=== PATIENT | female | born 1955 | race Caucasian/White ===

== ENCOUNTER 2019-10-31 17:04 | Emergency (ER) | payer MEDICARE, SELFPAY ==
[2019-10-31] VITALS (17 sets, daily range): BP systolic 102–128; BP diastolic 72–87; PULSE 107–112; RESP 18–23; TEMP 36.8; O2SAT 91–99
--- NOTE | ~2019-10-31 | CT_ITS ---
EXAMINATION: CT brain wo con EXAM DATE: 10/31/2019 17:36 INDICATION: Fall, confusion. TECHNIQUE: Spiral CT of the head was performed without contrast. Axial, coronal and sagittal images were reviewed. The dose-length product (DLP) for this examination was 605.33 mGy-cm. The exposure w as tailored according to patient size, and iterative reconstruction (ASIR) was used as additional dos e reduction technique. There is no prior study for comparison. FINDINGS: There is no acute intraparenchymal hemorrhage. No evidence of intraparenchymal brain mass lesion. No evidence of acute infarction. Please note that initial head CT has limited sensitivity f or small or acute infarctions. There is moderate periventricular and subcortical hypodensity, nonspec ific but probably related to small vessel ischemic disease. There is mild prominence of the sulci a nd ventricles related to cerebral atrophy. There is intracranial carotid arteriosclerosis. There a re no extra-axial collections. There is no mass effect or midline shift. The orbits are unremarkabl e. Soft tissue is unremarkable. The visualized sinuses and mastoid air cells are well aerated. IMPRESSION: 1. No acute intracranial findings. 2. Chronic age related findings. Reviewed, dictated and finalized at location A. [employer]OP FARMER
--- NOTE | 2019-10-31 17:13 | ECG_ITS ---
SINUS TACHYCARDIA BORDERLINE T WAVE ABNORMALITY- LATERAL LEADS BASELINE WANDER- I, II, AVR, V1, V5-V6 ABNORMAL ECG Electronically Signed On 11-01-2019 7:07:29 OVEN BAKER by Jules MCCAULEY
--- NOTE | 2019-10-31 17:19 | ED.FALL ---
HPI - Fall General Chief Complaint: Unspecified Stated Complaint: fall/back pain Time Seen by Provider: 10/31/19 17:13 Source: EMS and RN notes reviewed Mode of arrival: EMS Limitations: intoxication (and uncooperative) History of Present Illness HPI Narrative: Pt is a 63 y/o female who presents to the ED with c/o a fall with an unknown onset. EMS was in the room and provided the information. Pt was found outside of her home after she fell. Pt lives in an apartment complex. Pt landed on her back on a rock. Pt does have chronic lower back pain. Pt drank 2 glasses of wine. Bystanders called EMS and the pt wanted to be evaluated in the ED. Pt was able to ambulate after the fall. EMS notes that the pt slept the entire ambulance ride to the ED. HPI is limited due to pt being intoxicated and uncooperative. MD complaint: fall Fall from: other (unknown) Fall witnessed: no Place fall occurred: other (outside of home) Loss of consciousness: unsure Prolonged down time: unclear Symptoms prior to fall: other (unsure) Context: alcohol use Location of injury: back Associated symptoms (after fall): other (limited due to pt being intoxicated and uncooperative) Related Data Allergies Allergy/AdvReac Type Severity Reaction Status Date / Time Sulfa (Sulfonamide Allergy Unknown Verified 05/26/17 08:47 Antibiotics) Review of Systems Review of Systems: ROS unobtainable: other (limited due to pt being intoxicated and uncooperative) Musculoskeletal: Musculoskeletal: Reports back pain (chronic) [facility] Past Medical History Medical History (Updated 10/31/19 @ 17:41 by Eleln Arthur) Anxiety Anxiety Back pain with history of spinal surgery Bilateral carpal tunnel syndrome Chronic back pain Colon cancer Depression Depression Frequent falls GERD (gastroesophageal reflux disease) GERD (gastroesophageal reflux disease) GI bleed Hepatitis C Hepatitis C History of colon cancer History of GI bleed Hx of fracture of wrist [place] Hx of seizure disorder Hx: UTI (urinary tract infection) IBS (irritable bowel syndrome) IBS (irritable bowel syndrome) Peripheral neuropathy Peripheral neuropathy Port-A-Cath in place Seizures UTI (urinary tract infection) Wrist fracture, bilateral Surgical History Surgical History (Updated 10/31/19 @ 17:41 by Ellen Arthur) History of bilateral carpal tunnel release History of bone graft from LLE History of classical section History of colon resection sigmoid History of cystoscopy with stents Hx of bone graft on left leg Hx of section Hx of cystoscopy with stents S/P colon resection Family History Family History (Updated 04/17/17 @ 13:24 by DOCTOR UNKNOWN) Mother Diabetes mellitus Hypertension Social History Social History (Updated 10/25/19 @ 14:42 by Lewis Bright) Smoking packs per day: 1 Smoking cigarettes per day: 20.0 Smoking status: Current every day smoker Second hand tobacco smoke exposure: Yes Alcohol intake: current Living arrangements: other Additional living arrangements comments: Pt lives in an apartment complex. Gender identity (if verbalized by the patient): Female Comments Pt has a hx of metal neck implanted to her pelvis. Exam Narrative: Exam Narrative: Exam is limited due to pt being intoxicated and uncooperative. Const: General: comfortable, no acute distress, well developed and other (lethargic) Limitations: other limitations (intoxicated, uncooperative) HENMT: Head: normal to inspection, normocephalic and atraumatic Ears: hearing grossly normal bilaterally, TM normal on the right and TM normal on the left General nose exam: external nose normal, nares normal and no nasal discharge Face and sinus: normal facial exam Mouth: Yes oral mucosae normal, Yes lip normal, Yes tongue normal and Yes oropharynx normal Throat: posterior oropharynx normal, tonsils normal and uvula midline Eyes: General: appearance no
[2019-10-31] MEDS: SODIUM CHLORIDE 0.9% IV 1,000 ML 999 ML IV CONT (17:41)
[2019-10-31 17:57] LABS: Basophils Absolute Auto 0.1 K/mm3 (0.0-0.1); Basophils Percent Auto 0.8 % (0.2-1.2); Eosinophils Absolute Auto 0.1 K/mm3 (0-0.3); Eosinophils Percent Auto 1.2 % (0-4.4); Hematocrit 42.4 % (37.0-47.0); Hemoglobin 13.5 g/dL (12.0-15.0); Immature Granulocyte Absolute 0.11 K/mm3 (0.00-0.031); Lymphocytes Absolute Auto 4.77 K/mm3 (0.9-3.2); Lymphocytes Percent Auto 44.1 % (18.3-44.2); Mean Corpuscular HGB Conc 31.8 g/dl (32-36); Mean Corpuscular Hemoglobin 31.1 pg (26-34); Mean Corpuscular Volume 97.7 fl (80-100); Mean Platelet Volume 9.2 fl (7.4-10.4); Monocytes Absolute Auto 0.7 K/mm3 (0.1-0.6); Monocytes Percent Auto 6.5 % (2.6-8.5); Neutrophils Percent Auto 46.4 % (45.5-73.1); Platelet Count Result 304 k/mm3 (150-375); Red Blood Count 4.34 M/mm3 (4.2-5.4); Red Cell Distribution Width 14.2 % (11.5-14.5); White Blood Count 10.8 K/mm3 (4.5-10.0)
[2019-10-31 18:10] LABS: Blood Urea Nitrogen 12 mg/dL (7-17); Calcium 9.2 mg/dL (8.4-10.2); Carbon Dioxide 19 mmol/L (22-30); Chloride 106 mmol/L (98-107); Estimated CRCL calculation 96 ml/min; Estimated Glomerular Filt Rate > 60; Glucose 117 mg/dL (65-105); Potassium 4.1 mmol/L (3.4-5.0); Sodium 141 mmol/L (137-145)
[2019-10-31 18:29] LABS: Ethanol 326 mg/dL (<10)
[2019-11-01 00:21] VITALS: PULSE 104; RESP 18; O2SAT 95
[2019-11-01 01:05] VITALS: BP 119/77; PULSE 82; RESP 18; O2SAT 99
== END 2019-11-01 01:06 | disposition home or self-care (01) ==
PROVIDERS: Emergency Provider Emergency Medicine
DX: F10.129 Alcohol abuse with intoxication, unspecified (principal); Y90.8 Blood alcohol level of 240 mg/100 ml or more; W19.XXXA Unspecified fall, initial encounter; Z85.038 Personal history of other malignant neoplasm of large intestine; K21.9 Gastro-esophageal reflux disease without esophagitis; Z86.19 Personal history of other infectious and parasitic diseases; G40.909 Epilepsy, unspecified, not intractable, without status epilepticus; K58.9 Irritable bowel syndrome, unspecified; Z87.440 Personal history of urinary (tract) infections; Z90.49 Acquired absence of other specified parts of digestive tract; F17.210 Nicotine dependence, cigarettes, uncomplicated
CPT/HCPCS: 36415; 70450; 80048; 80307; 85025; 93005; 96361; 96365; 96366; 99284; J3411; J3475; J7030; J7121

== ENCOUNTER 2019-12-20 09:52 | Observation (INO) | payer MEDICARE, MEDICAID, SELFPAY ==
[2019-12-20] VITALS (10 sets, daily range): BP systolic 111–147; BP diastolic 56–93; PULSE 101–127; RESP 16–20; TEMP 36.9–37.2; O2SAT 94–96; BMI 34.8
--- NOTE | ~2019-12-20 | CT_ITS ---
EXAMINATION: CT brain wo con, CT cervical spine wo con EXAM DATE: 12/20/2019 10:47 INDICATION: Seizure, posterior head injury, laceration. TECHNIQUE: Spiral CT of the head was performed without contrast. Axial, coronal and sagittal images were reviewed. Spiral CT of the cervical spine was performed without contrast. Axial images were rev iewed. Coronal and sagittal reformatted images were also reviewed. The dose-length product (DLP) fo r this examination was 605.33 (accession [id number]), 426.79 (accession [id number]) mGy-cm. The exposure was tailored according to patient size, and iterative reconstruction (ASIR) was used as additional dose reduction technique. There is no prior study for comparison. FINDINGS: HEAD CT: There is no acute intraparenchymal hemorrhage. No evidence of intraparenchymal brain mass l esion. No evidence of acute infarction. There is moderate periventricular and subcortical hypodensit y, nonspecific but probably related to small vessel ischemic disease. There is mild prominence of t he sulci and ventricles related to cerebral atrophy. There is intracranial carotid arteriosclerosis . There is no mass effect or midline shift. There is no obstructive hydrocephalus suspected. There are no extra-axial collections. There are no acute calvarial fractures. The orbits are unremarkabl e. Right occipital scalp laceration, contusion. The visualized sinuses and mastoid air cells are we ll aerated. CERVICAL CT: Cervical fusion hardware with anterior plate C5-7. There is no evidence of acute cervica l fracture. The odontoid process is intact. Pre-dens space is normal. Prevertebral soft tissue is normal. There are no soft tissue abnormalities identified. There is no disc space widening or traum atic vertebral body subluxation suspected. Advanced upper cervical facet arthropathy. A detailed le evelyn by level evaluation of spondylosis can be added as addendum if requested. IMPRESSION: 1. No acute intracranial or cervical findings. 2. Right occipital scalp contusion/laceration. 3. Intact cervical fusion. Reviewed, dictated and finalized at location B. FACTURING ENGINEER CHIEF IMPRESSION: 1. No acute intracranial or cervical findings. 2. Right occipital scalp contusion/laceration. 3. Intact cervical fusion.
--- NOTE | ~2019-12-20 | MR_ITS ---
EXAMINATION: MR brain/brain stem wo/w con DATE: 12/21/2019 10:45 INDICATION: Seizure. TECHNIQUE: Magnetic resonance imaging (MRI) of the brain and brainstem was performed without and with 15 mL MultiHance intravenous contrast. Sequences included sagittal and axial T1-weighted FSE, axial diffusion-weighted FS EPI, axial T2*-weighted GRE, axial T2-weighted FLAIR Propeller, and axial T2-we ighted Propeller. Postcontrast sequences included axial and coronal T1-weighted FSE. Apparent diffusi on coefficient (ADC) maps were created. COMPARISON: Brain MRI 12/23/2016, head CT 12/20/2019 FINDINGS: There are scattered areas of nonspecific increased T2-weighted signal intensity in the cere bral white matter. There is no intracranial hemorrhage, acute infarction, or abnormal intracranial ma ss lesion. The ventricles are normal in size. There is a 2.4 x 1.1 cm arachnoid cyst anterior to left temporal lobe. There is mild mucosal thickening in the paranasal sinuses. The orbits are normal. The mastoid air cells are normal. IMPRESSION: 1. Worsened moderate nonspecific cerebral white matter disease, which likely represents chronic small vessel ischemic disease. Reviewed, dictated and finalized at location A. MATIC BLOCKER IMPRESSION: 1. Worsened moderate nonspecific cerebral white matter disease, which likely re presents chronic small vessel ischemic disease.
--- NOTE | 2019-12-20 10:01 | ECG_ITS ---
Measurements Intervals [place] Rate: 113 P: 59 GA: 135 QRS: 68 QRSD: 73 T: 73 QT: 320 QTc: 439 Interpretive Statements SINUS TACHYCARDIA POSSIBLE LEFT ATRIAL ENLARGEMENT CANNOT RULE OUT SEPTAL INFARCT, AGE INDETERMINATE BASELINE ARTIFACT- I, II, III, AVR, AVL, AVF ABNORMAL ECG Electronically Signed On 12-20-2019 10:03:08 AIRCRAFT DESIGN ENGINEER by Jules Workman D.O.
--- NOTE | 2019-12-20 10:17 | ED.SEIZURE ---
HPI - Seizure General Chief Complaint: Seizure <Berenice Samaniego MD - Last Filed: 12/20/19 19:44> Stated Complaint: SEIZURE <Berenice Samaniego MD - Last Filed: 12/20/19 19:44> Time Seen by Provider: 12/20/19 10:02 <Berenice Samaniego MD - Last Filed: 12/20/19 19:44> Source: patient and RN notes reviewed <Berenice Samaniego MD - Last Filed: 12/20/19 19:44> Mode of arrival: EMS <Berenice Samaniego MD - Last Filed: 12/20/19 19:44> Limitations: no limitations <Berenice Samaniego MD - Last Filed: 12/20/19 19:44> History of Present Illness HPI Narrative: Pt is a 64 y/o female presenting to the ED via EMS c/o Sz. Pt reports she was standing in line at [facility] when she felt her baseline aura of feeling lightheaded and passed out on the ground, noting she woke up in the EMS vehicle earlier today. Pt states she has been experiencing Sz's about once a month for the past 2 years, and is currently prescribed 2000 mg Keppra BID in which she maintains compliance of. Pt states her Sz's are managed by her PCP, Dr. Ibarra, and states she has never been to see a Neurologist, but notes she thinks she is scheduled to see a Neurologist next week. Pt states she hit the back of her head during the Sz earlier today causing a laceration to her occipital head. Pt denies neck pain, N/V, diarrhea, fever, or a recent illness. Pt notes her last Tetanus shot is unknown. Pt states she consumed about 3-4 glasses of wine last night, but denies heavy alcohol use regularly. Pt states she smokes 1 ppd, but denies drug use. <Berenice Samaniego MD - Last Filed: 12/20/19 19:44> Onset (ago): unknown (Earlier today) <Berenice Samaniego MD - Last Filed: 12/20/19 19:44> Seizure History: Yes <Berenice Samaniego MD - Last Filed: 12/20/19 19:44> Associated symptoms: other (Lightheadedness; laceration to occipital head) <Berenice Samaniego MD - Last Filed: 12/20/19 19:44> Related Data Home Medications: Home Medications Medication Instructions Recorded Confirmed levetiracetam 1,000 mg tablet 2,000 mg PO Q12H 11/18/19 12/20/19 mrixaiewle-lvgeynzmbqogi-lgzd 2 tablet PO PRN PRN 12/20/19 12/20/19 ibuprofen 400 mg PO TID PRN 12/20/19 12/20/19 <Berenice Samaniego MD - Last Filed: 12/20/19 19:44> Allergies/Adverse Reactions: Allergies Allergy/AdvReac Type Severity Reaction Status Date / Time Sulfa (Sulfonamide Allergy Unknown Unknown Verified 12/20/19 15:08 Antibiotics) <Berenice Samaniego MD - Last Filed: 12/20/19 19:44> Review of Systems Review of Systems: All systems reviewed & are unremarkable except as noted in HPI and below <Berenice Samaniego MD - Last Filed: 12/20/19 19:44> Constitutional: Constitutional: Denies fever(s) <Berenice Samaniego MD - Last Filed: 12/20/19 19:44> Cardiovascular: Cardiovascular: Reports lightheadedness <Berenice Samaniego MD - Last Filed: 12/20/19 19:44> Gastrointestinal: Gastrointestinal: Denies diarrhea, Denies nausea and Denies vomiting <Berenice Samaniego MD - Last Filed: 12/20/19 19:44> Musculoskeletal: Musculoskeletal: Denies neck pain <Berenice Samaniego MD - Last Filed: 12/20/19 19:44> Integumentary/Breasts: Skin/Breast: Reports other (Laceration to occipital head) <Berenice Samaniego MD - Last Filed: 12/20/19 19:44> Neurologic: Reports seizure-like activity <Berenice Samaniego MD - Last Filed: 12/20/19 19:44> [facility] Past Medical History Medical History: Medical History Anxiety Anxiety Back pain with history of spinal surgery Bilateral carpal tunnel syndrome Chronic back pain Colon cancer Depression Depression Frequent falls GERD (gastroesophageal reflux disease) GERD (gastroesophageal reflux disease) GI bleed Hepatitis C Hepatitis C History of colon cancer History of GI bleed Hx of fracture of wrist [place] Hx of seizure disorder Hx: UTI (urinary tract infection) IBS (irritable bowel syndrome)
[2019-12-20 10:26] LABS: Basophils Absolute Auto 0.1 K/mm3 (0.0-0.1); Basophils Percent Auto 0.6 % (0.2-1.2); Eosinophils Absolute Auto 0.1 K/mm3 (0-0.3); Eosinophils Percent Auto 0.7 % (0-4.4); Hematocrit 45.6 % (37.0-47.0); Hemoglobin 14.4 g/dL (12.0-15.0); Immature Granulocyte Absolute 0.07 K/mm3 (0.00-0.031); Immature Granulocyte Percent A 0.6 % (0-0.5); Lymphocytes Absolute Auto 3.04 K/mm3 (0.9-3.2); Lymphocytes Percent Auto 26.1 % (18.3-44.2); Mean Corpuscular HGB Conc 31.6 g/dl (32-36); Mean Platelet Volume 9.4 fl (7.4-10.4); Monocytes Absolute Auto 0.5 K/mm3 (0.1-0.6); Monocytes Percent Auto 3.9 % (2.6-8.5); Neutrophils Percent Auto 68.1 % (45.5-73.1); Platelet Count Result 363 k/mm3 (150-375); Red Cell Distribution Width 13.6 % (11.5-14.5); White Blood Count 11.7 K/mm3 (4.5-10.0)
[2019-12-20 10:37] LABS: Blood Urea Nitrogen 5 mg/dL (7-17); Calcium 9.2 mg/dL (8.4-10.2); Carbon Dioxide 18 mmol/L (22-30); Chloride 106 mmol/L (98-107); Estimated CRCL calculation 83 ml/min; Estimated Glomerular Filt Rate > 60; Glucose 103 mg/dL (65-105); Potassium 4.4 mmol/L (3.4-5.0); Sodium 140 mmol/L (137-145)
[2019-12-20] MEDS: LACTATED RINGERS 1,000 ML 999 ML IV CONT (11:00)
[2019-12-20] MEDS: TETANUS,DIPHTHERIA,AC PERTUSSIS ADULT 0.5 ML (ADACEL) IM (11:03)
[2019-12-20 11:30] LABS: Amphetamine Screen Urine Negative (Negative); Barbiturate Screen Urine Positive (Negative); Benzodiazepines Screen Urine Negative (Negative); Cannabinoid Screen Urine Negative (Negative); Cocaine Screen Urine Negative (Negative); Methadone Screen Urine Negative (Negative); Opiate Screen Urine Negative (Negative); Phencyclidine Screen Urine Negative (Negative)
[2019-12-20 12:12] LABS: Add Urine Microscopic? YES; Appearance Urine Clear (Clear); Bacteria Urine Trace /hpf; Bilirubin Urine Negative (Negative); Blood Urine Negative (Negative); Color Urine Yellow (Yellow); Glucose Urine UA Negative (Negative); Ketones Urine Negative (Negative); Leukocyte Esterase Ur Trace LEU/UL (Negative); Mucus Urine Rare /lpf; Nitrate Urine Negative (Negative); Protein Urine Negative (Negative); Specific Grav Ur 1.018 (1.001-1.035); Squamous Epithelial Cell Urine Moderate /hpf (Few); Urobilinogen Urine Negative mg/dL (<2.0)
[2019-12-20] MEDS: LORAZEPAM INJ 2 MG/ML VIAL 1 MG IV PUSH (12:20)
[2019-12-20] MEDS: levETIRAcetam 1000MG/NACL100ML 1,000 MG/100 ML BAG 400 MG IVPB (14:00)
--- NOTE | 2019-12-20 15:17 | ADMGEN ---
This patient, Carolyn Royal, was admitted to Medical Room 245-. Patient/family oriented to hospital policies and general routines including ID bracelet, bed and alarms, visiting hours, pain management, procedures, bathroom and other care routines, personal items, smoking policy, room service/diet, and visiting hours. Valuables list has been completed. Information on how to activate the Rapid Response Team has been discussed. Patient/Family are encouraged to report perceived risks to care and to ask questions if they do not understand what they are told or what they should do.
[2019-12-20] MEDS: LACTATED RINGERS 1,000 ML 125 ML IV CONT (17:53)
[2019-12-20] MEDS: levETIRAcetam 500 MG TABLET 1000 MG PO (21:42)
[2019-12-21 00:35] VITALS: PULSE 93
[2019-12-21] MEDS: LACTATED RINGERS 1,000 ML 125 ML IV CONT (02:03)
[2019-12-21 04:00] VITALS: PULSE 82
--- NOTE | 2019-12-21 04:23 | PM.IMHP ---
H&P: HPI History of Present Illness Chief complaint: Seizure Narrative: Date and time of patient contact: 12/21/2019 at 5:30 a.m. Carolyn Royal is a 64 year old female with a past medical history of a known seizure disorder has been evaluated here multiple times for seizures who presented to the ER via EMS from [facility] due to seizure. The patient has been on Keppra for several years. I find a record of seizure disorder since 2017. Patient had negative EEG in 2017 an MRI that demonstrated an anterior left arachnoid cyst and microvascular changes. However the patient had reported that she cannot see neurology for her seizures and that her seizures are managed by her primary care physician. However the patient has been evaluated by Neurology multiple times here and has had prior EEGs and MRIs at this facility. Initial triage report was that the patient drinks 3 or 4 glasses a wine a day. However the patient later stated that she only drinks on occasion and she last drank 3-4 glasses on the . Interestingly enough the patient was at [facility] buying a bottle of wine when her seizure occurred and had not had any alcohol on the day of the . And alcohol level was not obtained in the ER. However, the patient has had alcohol levels as high as 326 October 31, 2019 and 385 on October 22, 2019. During my interview the patient became quite defensive been angry when I was asking her about alcohol use. She states that there are times where she will go weeks without drinking alcohol. But there are other times where she will drink a couple of bottles of wine a week. Of note the patient did not have any loss of bowel or bladder control at the time of her seizure. She states that her oral for seizure is that she just generally feels lightheaded. She states she has had a few episodes of what she thought were her auras over the last week but she did not have any events. The patient had seizure-like activity in the ER. She had called out to the nurses station and when staff went to assess the patient she was found to be having generalized body jerking with her eyes open and she was talking. The patient proceeded to continue talking and answered questions immediately. She was given Ativan. Had a laceration repair performed in the ER the documentation is difficult to read but appears the patient may have received 4 sutures. I visualized the wound and cannot determine the number of sutures. The patient reports the pain in her head is a 7/10 in intensity. She had received Nelson 5 mg every 6 hours that have been ordered in the ER. I increased her Nelson to 7.5 every 6 hours and gave her a dose of early and she still states that her pain is unchanged. I provided the patient with an ice pack and told her that she would not be getting any additional narcotics. She states that she now hurts all over after having fallen. Her general body aches are terrible. Review of Systems Review of Systems: Narrative: Except as documented in the HPI, all other systems were reviewed and are negative. [facility] Past Medical History Medical History (Updated 12/21/19 @ 05:57 by Africa Brannon DO) Anxiety Back pain with history of spinal surgery Miller rods placed due to scoliosis Colon cancer Depression Fracture of right ankle, lateral malleolus Nondisplaced comminuted fracture lateral malleolus 11/13/2019 Frequent falls GERD (gastroesophageal reflux disease) GI bleed With history of gastric and duodenal ulcer 09/2018 Hepatitis C Has a teenage History of colon cancer Status post sigmoid resection 05/05/2017 Hx of seizure disorder With normal EEG and MRI demonstrating arachnoid cyst in the left temporal lobe with chronic small-vessel ischemic changes in November 2016 IBS (irritable bowel syndrome) 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 Surgical History Surgical History (Updated 12/21/19 @ 04:40 by Africa Brannon DO) History o
[2019-12-21] MEDS: NICOTINE (*PBKC) 21 MG PATCH 1 PATCH TRANSDERM (06:15)
[2019-12-21 06:25] VITALS: BP 145/85; PULSE 86; RESP 18; TEMP 36.2; O2SAT 98
[2019-12-21 08:00] VITALS: PULSE 95
[2019-12-21] MEDS: levETIRAcetam 500 MG TABLET 1000 MG PO (08:46)
[2019-12-21 12:00] VITALS: PULSE 92
--- NOTE | 2019-12-21 12:10 | PM.IMPN ---
Progress Note: A&P Assessment and Plan (1) Generalized seizure: Code(s): R56.9 - Unspecified convulsions Status: Acute Assessment and Plan: Seizure activity occurred on 12/20/19. Received 1 g IV Keppra in ED. Dr. Chun is seeing the patient and will give recommendations. Due to scalp laceration, an EEG is not able to be obtained. She is scheduled for outpatient EEG with Dr. Chun. - Continue home dose PO Keppra 1000 mg BID - Continue prn Lorazepam for seizure activity - Await results of MRI - Await recommendations from Dr. Chun. (2) Scalp laceration: Code(s): S01.01XA - Laceration without foreign body of scalp, initial encounter Status: Acute Assessment and Plan: Laceration sustained due to fall from seizure activity. Repair performed in the ED. Documentation reveals 2 laceration sites of the scalp. It appears that a total of 2 nylon sutures were placed which will need to be removed in 7-10 days. There is dried blood on the scalp and patient is very tender to palpation, therefore I was able to visualize only one suture. - Continue to monitor laceration - Suture removal in 7-10 days as an outpatient (3) Back pain with history of spinal surgery: Code(s): M54.9 - Dorsalgia, unspecified Status: Acute Assessment and Plan: Patient complains of diffuse back pain following lying for MRI. She has history of spinal surgery and rods. - Order heating pad for comfort measures Subjective Date/time seen: 12/21/19 12:10 Interval history: Date of service: 12/21/19 Ms. Royal is a 64 year old female with a history of generalized seizures who is hospitalized following seizure activity on 12/20 with which she obtained a scalp laceration requiring suture closure. She reports she is doing well today. She complains of scalp pain at the site of laceration but she denies headache. She denies dizziness or lightheadedness. She had just returned from an MRI which she reports made her feel rather anxious. She also cites family issues that are causing her to feel anxious. Additionally, she complains of diffuse back pain related to her history of scoliosis. She reports sleeping well and has good appetite. She denies urinary symptoms. Review of Systems Review of Systems: Narrative: A 12 point review of systems was reviewed and unremarkable except as noted in HPI and below Constitutional: no weakness, no fatigue, no fevers, no dizziness or lightheadedness EENT: no visual disturbance, no difficulty hearing, no rhinorrhea, no dysphagia CV: no chest pain, no SOB Respiratory: no cough, no congestion GI: no abdominal pain, no nausea or vomiting, no stool changes : no dysuria, no urgency or frequency, no hematuria Skin: no rashes, scalp lesion MSK: back pain Neuro: no headaches, no memory loss, no confusion Psych: anxiety, no depression Heme: no bleeding or bruising Endocrine: no weight change Exam Narrative: Exam Narrative: Ms. Royal is examined alone today. She is lying supine in bed with seizure pads in place and she is eating lunch. Constitutional: NARD, comfortable, well nourished Neuro: awake, alert and oriented x3, speech clear, no focal neuro deficits noted HEENMT: normocephalic, EOMI, sclerae anicteric, scalp very tender to palpation and sutures difficult to visualize due to hair, dried blood, and patients discomfort. One suture visualized in the left occipital region. No active bleeding, no signs of infection. Neck: supple, no lymphadenopathy Respiratory: clear to auscultation bilaterally, normal respiratory effort Cardio: regular rate, regular rhythm, no murmur noted Abdomen: normal to inspection, soft, nontender, no masses, bowel sounds present Back: tenderness to palpation, no CVA tenderness Extremities: no edema, no erythema, no pain to palpation Skin: no rashes or lesions, warm and dry Psych: anxious Objective Data Vital Signs Vital Signs: Vital Signs - 24 h
--- NOTE | 2019-12-21 13:38 | PM.DS ---
DS: Diagnosis Admitting Diagnosis Admitting Diagnosis: Unspecified convulsions Discharge Diagnosis (1) Generalized seizure: Code(s): R56.9 - Unspecified convulsions Status: Acute (2) Scalp laceration: Qualifiers: Encounter type: initial encounter Qualified Code(s): S01.01XA - Laceration without foreign body of scalp, initial encounter Code(s): S01.01XA - Laceration without foreign body of scalp, initial encounter Status: Acute Assessment and Plan: (3) Back pain with history of spinal surgery: Code(s): M54.9 - Dorsalgia, unspecified Status: Acute Assessment and Plan: (4) Anxiety: Code(s): F41.9 - Anxiety disorder, unspecified Status: Acute DS: Summary Hospital Course Reason for hospitalization: Seizure activity Hospital Course: Date of admission: 12/20/19 Date of discharge: 12/21/19 Ms. Royal is a 64 year old female with history of generalized seizures who presented to the emergency department via EMS on 12/20/19 after having seizure activity at [facility] with which she sustained a scalp laceration. She reports she has seizures approximately every month but denies seeing a neurologist. She was admitted on 12/20/[address] Chun with neurology was consulted and followed the patient closely. A head CT obtained revealed no acute intracranial findings and right occipital scalp contusion/laceration. Her seizures were controlled with 1 g IV Keppra while in the ED. She was then continued on her home dose of Keppra 1000 mg BID. She did not have additional seizure activity while hospitalized. Her MRI did not reveal acute changes. She was unable to undergo EEG due to her scalp laceration. Dr. Chun recommended she complete EEG as an outpatient in 6 weeks. She was given instructions to call his office to set up this appointment. Per Dr. Chun's recommendations, her home dose of Keppra was increased to 1000 mg every morning and 1500 mg every evening. We discussed importance of medication compliance. Her scalp laceration was repaired in the ED. Documentation revealed 2 lacerations on the scalp that were approximated with nylon sutures. It appears there were a total of 2 sutures placed. The patient was extremely tender to palpation and there was dried blood on the scalp which made suture visualization difficult. I was able to visualize one suture in the left occipital region. There was no active bleeding from the laceration and it appeared clean and dry. She was instructed to follow up with her PCP regarding suture removal in 7-10 days and avoid submerging the area in water. She did endorse back pain during her stay. She has a history of scoliosis corrected with surgery. She reports the rods in her back cause her pain, and the combination of the seizure activity and lying for the MRI had exacerbated her back pain. She did receive [place] for pain on 12/20/19. On 12/21/19, she was given a heating pad to apply to her back for comfort measures. She also endorsed anxiety that was multifactorial. She reported the event had made her anxious and she had some personal family stressors. She was very concerned about going home to care for herself which caused her to become quite anxious. She reported this anxiety was causing her to feel as though she was short of breath, although she was breathing without difficulty. She was discharged with a 2 day course of hydroxyzine to take for her anxiety as needed with instructions to follow up with her PCP if her anxiety continued or worsened. After discussing worrisome signs and symptoms for which to seek medical care, the patient was discharged home on the afternoon of 12/21/19 in hemodynamically stable condition with instructions to follow up with her PCP and neurologist. Status at Discharge Functional status at discharge: independent ambulation Overall status at discharge: patient is progressing back to baseline Time Spent with Patient Time
--- NOTE | 2019-12-21 14:04 | PC.NURSE ---
On 12/21/19, the student, Eduardo Briggs, provided care and completed [facility] documentation on this patient. I have reviewed the student's documentation and agree with the findings.
--- NOTE | 2019-12-21 14:45 | PC.NURSE ---
12/21/19 1400. Patient actually takes 1000 mg Keppra PO Q12hr. Medication rec was incorrect. Lizbeth GUEVARA is aware. Dr. Chun is aware. Patient is also aware of change in medication.
--- NOTE | 2019-12-21 15:24 | CONS_ITS ---
DATE OF CONSULTATION: HISTORY OF PRESENT ILLNESS: This 64-year-old right-handed female has been admitted to [facility] through the emergency room via EMS from [facility] due to the seizure. The patient has been on Keppra for several years since 2017 in the record here. Last time she had an EEG in 2017 including the MRI, which revealed the anterior left arachnoid cyst and microvascular changes. Her seizures are managed by her primary care physician. She has been evaluated by Neurology multiple times here and has had previous EEGs and MRIs also. It was also reported that she drinks only occasionally and last drink was about 3-4 glasses on . Reportedly she was at [facility] buying a bottle of wine when her seizure occurred and had not had any alcohol on the day of the . An alcohol level was not obtained in the emergency room, but patient has had alcohol level as high as 326 on October 31, 2019 and 385 from 10/22/2019. She will drink a couple of bottles of wine a week. She has not had incontinence of bowel or bladder. In the emergency room, she was noted to have seizure-like activity, when she received the Ativan. She had a laceration, which was repaired in the emergency room. The pain in her head was 7/10 in intensity. She had received [place] 5 mg every 6 hours, which was ordered in the emergency room, which was subsequently increased in the strength. PAST MEDICAL HISTORY: As per the review of the medical record, patient carries the history of anxiety, back pain with history of spinal surgery, Miller rods placed due to scoliosis, colonic cancer, depression, fracture of the right ankle lateral malleolus, nondisplaced, repair on 11/13/2019, frequent falls, GERD, GI bleed, hepatitis C as a teenager, history of colon cancer for which she underwent sigmoid resection, history of seizure disorder, irritable bowel syndrome, and peripheral neuropathy. PAST SURGICAL HISTORY: She has undergone bilateral carpal tunnel release, bone graft for the left lower extremity, colon resection, cystoscopic exam, , Port-A-Cath in place, scoliosis deformity with spine with surgical repair, wrist fracture bilateral requiring bone graft. FAMILY HISTORY: Mother is diabetic, hypertensive, has COPD. Father is with motor vehicle accident, history of alcohol abuse. Siblings have history of drug overdose with disease. SOCIAL HISTORY: The patient herself smoked 1 pack per day with 46 years of smoking pack years and current every day smoker. Current alcohol drinker. MEDICATIONS: Evaluation up until now revealed her to have Keppra 2000 mg q.12 hours at home, phenobarbital 2 tablets p.o. p.r.n. for the headache, and ibuprofen p.r.n. PHYSICAL EXAMINATION: VITAL SIGNS: Evaluation up until now revealed her to be afebrile with pulse of 119, respirations 20, blood pressure 114/84, temperature normal. GENERAL: Examination revealed her to be awake, alert, cooperative. HEENT: Head normocephalic, but complaining of tenderness. x ray electronics wiring technician was struggling to do the EEG, but electrodes could not be placed in, it was discontinued, advised to have the EEG done in 6 weeks. Ears, nose, throat examination normal. NECK: Supple with no cervical bruit. No thyromegaly. No lymphadenopathy. HEART: Regular. LUNGS: Clear. ABDOMEN: Soft. NEUROLOGICAL: She is awake, alert, oriented x3. Speech not dysphasic, not dysarthric, not dysphonic. Pupils round, regular. [place] of vision full. Extraocular movements full. Face symmetrical. Tongue midline. Motor examination revealed normal strength. Reflexes symmetrical. Plantars downgoing. No evidence of gross cerebellar deficit. LABORATORY DATA: Evaluation up until now includes the CBC with normal WBC 11.7, hemoglobin 14.4, and platelet count 363. Ba
== END 2019-12-21 14:20 | disposition home or self-care (01) ==
LOC: ANHED 13:35 → ANH2MED 13:53
PROVIDERS: Emergency Medicine; Admitting Provider Internal Medicine; Emergency Provider General Practice; PCP Family Medicine; Visit Provider Internal Medicine
DX: R56.9 Unspecified convulsions (principal); S01.01XA Laceration without foreign body of scalp, initial encounter; M54.9 Dorsalgia, unspecified; F41.9 Anxiety disorder, unspecified; F17.210 Nicotine dependence, cigarettes, uncomplicated; G62.0 Drug-induced polyneuropathy; T45.1X5S Adverse effect of antineoplastic and immunosuppressive drugs, sequela; Z23 Encounter for immunization; Z79.899 Other long term (current) drug therapy; Z85.038 Personal history of other malignant neoplasm of large intestine; Z86.19 Personal history of other infectious and parasitic diseases; Z88.2 Allergy status to sulfonamides; Z98.1 Arthrodesis status
CPT/HCPCS: 12001; 36415; 70450; 70553; 72125; 80048; 80307; 81001; 85025; 90471; 90715; 93005; 96361; 96365; 96375; 99285; A9270; A9577; G0378; J1953; J2060; J7120

== ENCOUNTER 2020-02-10 15:27 | Emergency (ER) | payer MEDICARE, MEDICAID, SELFPAY ==
--- NOTE | ~2020-02-10 | CT_ITS ---
EXAMINATION: CT brain wo con DATE: 02/10/2020 17:12 INDICATION: Status post fall. Seizure. Head injury. TECHNIQUE: Computed tomography (CT) of the head was performed without intravenous contrast. The dose- length product was 605.33 mGy-cm. The mA was adjusted according to patient size. Iterative reconstruc tion technique was employed. COMPARISON: CT dated 12/20/2019 FINDINGS: No acute intracranial hemorrhage, infarction, mass or mass effect. No ventriculomegaly or m idline shift. Basilar cisterns are patent. Paranasal sinuses and mastoids are pneumatized. No depress ed skull fractures. There are scattered moderate periventricular and subcortical white matter changes , most likely related to small vessel ischemic disease (microangiopathy). IMPRESSION: 1. No acute intracranial abnormality. 2: Chronic age-related findings. Reviewed, dictated and finalized at location A.
[2020-02-10 15:24] VITALS: BP 105/64; PULSE 113; RESP 20; TEMP 36.6; O2SAT 96
--- NOTE | 2020-02-10 15:32 | ECG_ITS ---
Measurements Intervals [place] Rate: 105 P: 75 AL: 131 QRS: 83 QRSD: 82 T: 85 QT: 336 QTc: 446 Interpretive Statements SINUS TACHYCARDIA ATRIAL PREMATURE COMPLEX POSSIBLE LEFT ATRIAL ENLARGEMENT BORDERLINE T WAVE ABNORMALITY- LATERAL LEADS BASELINE ARTIFACT- I, II, III, AVR, AVL, AVF ABNORMAL ECG Electronically Signed On 02-10-2020 16:26:43 CDT by Jules Workman D.O.
[2020-02-10 16:36] VITALS: BP 127/88; PULSE 100; RESP 17; O2SAT 95
--- NOTE | 2020-02-10 16:37 | ED.SEIZURE ---
HPI - Seizure General Chief Complaint: Seizure Stated Complaint: SEIZURE Time Seen by Provider: 02/10/20 16:09 Source: patient Mode of arrival: EMS Limitations: no limitations History of Present Illness HPI Narrative: Patient is a 64-year-old female who presents to the emergency department with complaint of seizure. Patient has known history of seizure disorder and takes Keppra twice daily. Patient does not know the strength on her Keppra but states she takes 3 tablets in the morning and 2 tablets in the evening. Patient states she had a seizure witnessed by her mother approximately 2 weeks ago. She reports feeling as though seizure was coming on last night and then waking up in her bed having not fallen but feeling achy all over. Patient states she had another episode today while sitting on the couch. Patient felt in her head as though a seizure was coming on and when she woke up she was on the floor aching all over. Patient complains of a headache and states she could tell she had hit the end table as there was a crack in it. Patient is uncertain what part of her body hit the table. Patient states she has been compliant with her seizure medication. She states her primary care physician has her set up to have an EEG and some other evaluation of her seizures. Patient states she does not currently have a neurologist. Patient denies any recent illness symptoms. complaint: seizure Onset (ago): hour(s) Witnessed: No Seizure History: Yes (since 2007) Place: home Possible Precipitating Event: none Associated symptoms: other (Headache, back pain, diffuse muscle aches) Treatments prior to arrival: none Related Data Home Medications Medication Instructions Recorded Confirmed hzuwdloiau-mtvbsbmwlgfoc-vaek 2 tablet PO PRN PRN 12/20/19 12/20/19 ibuprofen 400 mg PO TID PRN 12/20/19 12/20/19 Allergies Allergy/AdvReac Type Severity Reaction Status Date / Time Sulfa (Sulfonamide Allergy Unknown Unknown Verified 02/10/20 16:12 Antibiotics) Review of Systems Review of Systems: All systems reviewed & are unremarkable except as noted in HPI and below Constitutional: Constitutional: Denies fever(s) Respiratory: Respiratory: Denies cough and Denies dyspnea Gastrointestinal: Gastrointestinal: Denies diarrhea, Denies nausea and Denies vomiting PMFSH Past Medical History Medical History Anxiety Back pain with history of spinal surgery Miller rods placed due to scoliosis Colon cancer Depression Fracture of right ankle, lateral malleolus Nondisplaced comminuted fracture lateral malleolus 11/13/2019 Frequent falls GERD (gastroesophageal reflux disease) GI bleed With history of gastric and duodenal ulcer 09/2018 Hepatitis C Has a teenage History of colon cancer Status post sigmoid resection 05/05/2017 Hx of seizure disorder With normal EEG and MRI demonstrating arachnoid cyst in the left temporal lobe with chronic small-vessel ischemic changes in November 2016 IBS (irritable bowel syndrome) 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 Surgical History Surgical History History of bilateral carpal tunnel release History of bone graft from LLE to repair bilateral wrist fractures History of colon resection sigmoid due to colon cancer April 2017 History of cystoscopy with stents March 2017 Hx of section Port-A-Cath in place Scoliosis deformity of spine With surgical repair Wrist fracture, bilateral Requiring bone graft Family History Family History (Updated 12/21/19 @ 04:41 by Africa Brannon DO) Mother Diabetes mellitus Hypertension COPD (chronic obstructive pulmonary disease) Father MVA (motor vehicle accident) Alcohol abuse Sibling Drug overdose Social History Social History S
[2020-02-10] MEDS: KETOROLAC 30 MG/ML VIAL (*BKC) IV PUSH (16:45)
[2020-02-10] MEDS: levETIRAcetam 1000MG/NACL100ML 1,000 MG/100 ML BAG 400 MG IVPB (16:45)
[2020-02-10 16:52] LABS: Basophils Absolute Auto 0.1 K/mm3 (0.0-0.1); Basophils Percent Auto 0.8 % (0.2-1.2); Eosinophils Absolute Auto 0.1 K/mm3 (0-0.3); Hematocrit 42.5 % (37.0-47.0); Hemoglobin 13.4 g/dL (12.0-15.0); Immature Granulocyte Absolute 0.09 K/mm3 (0.00-0.031); Immature Granulocyte Percent A 0.8 % (0-0.5); Lymphocytes Absolute Auto 3.31 K/mm3 (0.9-3.2); Lymphocytes Percent Auto 29.2 % (18.3-44.2); Mean Corpuscular HGB Conc 31.5 g/dl (32-36); Mean Corpuscular Volume 95.3 fl (80-100); Mean Platelet Volume 9.7 fl (7.4-10.4); Monocytes Absolute Auto 0.7 K/mm3 (0.1-0.6); Neutrophils Percent Auto 62.2 % (45.5-73.1); Platelet Count Result 323 k/mm3 (150-375); Red Blood Count 4.46 M/mm3 (4.2-5.4); Red Cell Distribution Width 15.3 % (11.5-14.5); White Blood Count 11.3 K/mm3 (4.5-10.0)
[2020-02-10 16:56] LABS: Add Urine Microscopic? YES; Appearance Urine Clear (Clear); Bilirubin Urine Negative (Negative); Blood Urine Negative (Negative); Color Urine Straw (Yellow); Glucose Urine UA Negative (Negative); Ketones Urine Negative (Negative); Leukocyte Esterase Ur 2+ LEU/UL (Negative); Nitrate Urine Negative (Negative); Protein Urine Negative (Negative); RBC Urine 0-2 /hpf (0-2); Specific Grav Ur 1.009 (1.001-1.035); Squamous Epithelial Cell Urine Occasional /hpf (Few); Urobilinogen Urine Negative mg/dL (<2.0)
[2020-02-10 17:05] LABS: Alanine Aminotransferase 23 U/L (4-35); Albumin Level 4.1 g/dL (3.5-5.1); Alkaline Phosphatase 138 U/L (38-126); Aspartate Amino Transferase 32 U/L (14-36); Bilirubin,Total 0.1 mg/dL (0.2-1.3); Blood Urea Nitrogen 8 mg/dL (7-17); Calcium 9.4 mg/dL (8.4-10.2); Carbon Dioxide 22 mmol/L (22-30); Chloride 109 mmol/L (98-107); Estimated CRCL calculation 76 ml/min; Estimated Glomerular Filt Rate > 60; Glucose 96 mg/dL (65-105); Potassium 4.2 mmol/L (3.4-5.0); Sodium 139 mmol/L (137-145)
[2020-02-10 17:40] VITALS: BP 96/58; PULSE 105; RESP 17; O2SAT 95
[2020-02-10 18:41] VITALS: BP 101/60; PULSE 91; RESP 18; O2SAT 95
== END 2020-02-10 18:42 | disposition home or self-care (01) ==
PROVIDERS: Emergency Provider Emergency Medicine; PCP Family Medicine
DX: G40.909 Epilepsy, unspecified, not intractable, without status epilepticus (principal); Z85.038 Personal history of other malignant neoplasm of large intestine; K21.9 Gastro-esophageal reflux disease without esophagitis; Z86.19 Personal history of other infectious and parasitic diseases; Z90.49 Acquired absence of other specified parts of digestive tract; K58.9 Irritable bowel syndrome, unspecified; G62.0 Drug-induced polyneuropathy; T45.1X5A Adverse effect of antineoplastic and immunosuppressive drugs, initial encounter; Z92.21 Personal history of antineoplastic chemotherapy; R00.0 Tachycardia, unspecified; I49.1 Atrial premature depolarization; R94.31 Abnormal electrocardiogram [ECG] [EKG]; F17.210 Nicotine dependence, cigarettes, uncomplicated; R82.998 Other abnormal findings in urine
CPT/HCPCS: 36415; 70450; 80053; 81001; 85025; 87086; 93005; 96365; 96375; 99284; J1885; J1953

== ENCOUNTER 2020-02-17 12:24 | Outpatient (CLI) | payer MEDICARE, MEDICAID, SELFPAY ==
--- NOTE | 2020-02-17 13:00 | NEURO_ITS ---
TEST: ELECTROENCEPHALOGRAM DIAGNOSIS: SEIZURES PATIENT NUMBER: [id number] EEG NUMBER: [id number] RECORDING DATE: 02/17/20 CONDITION OF RECORDING: Awake and drowsy EEG DESCRIPTION: Basic resting occipital frequency consists of small amount of poorly organized low voltage 8-9hz alpha mixed with low voltage 15-18hz beta. During drowsiness low voltage beta activity is seen diffusely mixed with waxing and waning posterior alpha rhythms and intermittent 5-7hz theta. Photic stimulation produced normal drive. Nonparoxysmal. Nonfocal. Nonlateralizing. IMPRESSION: No significant abnormalities noted. MTDD
== END 2020-02-17 12:25 | disposition home or self-care (01) ==
PROVIDERS: PCP Family Medicine; Visit Provider Psychiatry & Neurology Neurology
DX: R56.9 Unspecified convulsions (principal)
CPT/HCPCS: 95816

== ENCOUNTER 2020-02-29 14:49 | Emergency (ER) | payer MEDICARE, MEDICAID, SELFPAY ==
[2020-02-29 14:51] VITALS: BP 159/79; PULSE 109; RESP 20; TEMP 37.1; O2SAT 96
--- NOTE | 2020-02-29 15:02 | ED.ANXIETY ---
HPI - Anxiety General Chief Complaint: Anxiety Stated Complaint: ANXIETY ATTACK History of Present Illness HPI narrative: Patient is a 64-year-old female who presents the ER with anxiety. Patient got a verbal altercation with a neighbor. She then became very anxious. She reports that when she gets anxious she sometimes has a seizure. She was concerned she would go into this seizure while at home by herself. She reports she has been taking her seizure medication as prescribed. No additional complaints at this time. Related Data Home Medications Medication Instructions Recorded Confirmed nrivamgzms-yevhtmwmutxli-iomh 2 tablet PO PRN PRN 12/20/19 12/20/19 ibuprofen 400 mg PO TID PRN 12/20/19 12/20/19 Allergies Allergy/AdvReac Type Severity Reaction Status Date / Time Sulfa (Sulfonamide Allergy Unknown Unknown Verified 02/10/20 16:12 Antibiotics) Review of Systems Review of Systems: All systems reviewed & are unremarkable except as noted in HPI and below Constitutional: Constitutional: Denies chills, Denies fever(s) and Denies weakness ENT: Denies nasal congestion and Denies sore throat Respiratory: Respiratory: Denies cough, Denies dyspnea and Denies wheezing Gastrointestinal: Gastrointestinal: Denies abdominal pain, Denies nausea and Denies vomiting Psychiatric: Psychiatric: Reports anxiety, Denies depression and Denies homicidal ideation [facility] Family History Family History (Updated 12/21/19 @ 04:41 by Africa Brannon DO) Mother Diabetes mellitus Hypertension COPD (chronic obstructive pulmonary disease) Father MVA (motor vehicle accident) Alcohol abuse Sibling Drug overdose Social History Social History Social History: Primary care physician: Dr. Carolyn Ibarra Code status: Full code per EMR Smoking packs per day: 1 Smoking cigarettes per day: 20.0 Years smoked: 46 Smoking pack-years: 46.00 Smoking status: Current every day smoker Tobacco type: cigarettes Second hand tobacco smoke exposure: Yes Alcohol intake: current Drinks per week: 3 Substance use: never Substance use type: does not use Additional living arrangements comments: Pt lives in an apartment complex. Additional occupation/education comments: The patient reports that she is disabled due to her seizures. Gender identity (if verbalized by the patient): Female Spiritual care concerns: No Agree to blood products: Yes Exam Narrative: Exam Narrative: GENERAL: Anxious-appearing, well-nourished, and in no acute distress. HEAD: Normocephalic, atraumatic. EYES: PERRL and EOMI. ENT: Mucous membranes moist. CHEST: Clear to auscultation. No respiratory distress. HEART: Tachycardic and regular. Normal peripheral pulses. ABDOMEN: Soft, nontender, nondistended. EXTREMITIES: Normal range of motion. No edema. NEURO: Alert and oriented x3. PSYCH: Moderately anxious with normal thought content.. Course Course Emergency Course: Unable to provide urine specimen but patient is not symptomatic. Feels better with Xanax. Discharge home. Vital Signs Vital signs: Vital Signs Temperature 98.8 F 02/29/20 14:51 Pulse Rate 109 H 02/29/20 14:51 Respiratory Rate 20 02/29/20 14:51 Blood Pressure 159/79 H 02/29/20 14:51 Pulse Oximetry 96 02/29/20 14:51 Temperature 98.8 F 02/29/20 14:51 Pulse Rate 109 H 02/29/20 14:51 Respiratory Rate 20 02/29/20 14:51 Blood Pressure 159/79 H 02/29/20 14:51 Pulse Oximetry 96 02/29/20 14:51 MDM - Anxiety Lab Data Result diagrams: 02/29/20 15:24 02/29/20 15:24 Labs: Lab Results 02/29/20 02/29/20 Range/Units 15:24 15:24 WBC 9.8 (4.5-10.0) K/mm3 RBC 4.62 (4.2-5.4) M/mm3 Hgb 14.1 (12.0-15.0) g/dL Hct 43.7 (37.0-47.0) % MCV 94.6 (80-100) fl MCH 30.5 (26-34) pg MCHC 32.3 (32-36) g/d
[2020-02-29] MEDS: ALPRAZOLAM 0.25 MG TABLET 0.5 MG PO (15:22)
[2020-02-29 15:29] LABS: Basophils Absolute Auto 0.1 K/mm3 (0.0-0.1); Eosinophils Absolute Auto 0.1 K/mm3 (0-0.3); Eosinophils Percent Auto 0.6 % (0-4.4); Hematocrit 43.7 % (37.0-47.0); Hemoglobin 14.1 g/dL (12.0-15.0); Immature Granulocyte Absolute 0.05 K/mm3 (0.00-0.031); Immature Granulocyte Percent A 0.5 % (0-0.5); Lymphocytes Absolute Auto 3.86 K/mm3 (0.9-3.2); Lymphocytes Percent Auto 39.5 % (18.3-44.2); Mean Corpuscular HGB Conc 32.3 g/dl (32-36); Mean Corpuscular Hemoglobin 30.5 pg (26-34); Mean Corpuscular Volume 94.6 fl (80-100); Mean Platelet Volume 9.3 fl (7.4-10.4); Monocytes Absolute Auto 0.6 K/mm3 (0.1-0.6); Monocytes Percent Auto 5.9 % (2.6-8.5); Neutrophils Absolute Auto 5.1 K/mm3 (1.3-6.7); Neutrophils Percent Auto 52.5 % (45.5-73.1); Platelet Count Result 313 k/mm3 (150-375); Red Blood Count 4.62 M/mm3 (4.2-5.4); Red Cell Distribution Width 15.8 % (11.5-14.5); White Blood Count 9.8 K/mm3 (4.5-10.0)
[2020-02-29 15:43] LABS: Blood Urea Nitrogen 16 mg/dL (7-17); Calcium 8.2 mg/dL (8.4-10.2); Carbon Dioxide 22 mmol/L (22-30); Chloride 109 mmol/L (98-107); Estimated CRCL calculation 62 ml/min; Estimated Glomerular Filt Rate > 60; Glucose 101 mg/dL (65-105); Potassium 4.6 mmol/L (3.4-5.0); Sodium 140 mmol/L (137-145)
[2020-02-29 17:08] VITALS: BP 127/79; PULSE 105; RESP 16; TEMP 36.3; O2SAT 97
== END 2020-02-29 17:39 | disposition home or self-care (01) ==
PROVIDERS: Emergency Provider Emergency Medicine; PCP Family Medicine
DX: F41.9 Anxiety disorder, unspecified (principal); F17.210 Nicotine dependence, cigarettes, uncomplicated
CPT/HCPCS: 36415; 80048; 85025; 99283; A9270

== ENCOUNTER 2020-03-13 20:33 | Emergency (ER) | payer MEDICARE, MEDICAID, SELFPAY ==
--- NOTE | ~2020-03-13 | XR_ITS ---
EXAMINATION: XR chest 1V INDICATION: Transient alteration of awareness TECHNIQUE: Frontal view of the chest is obtained. COMPARISON: 10/25/2019 FINDINGS: A right subclavian Port-A-Cath ends with its tip in the distal superior vena cava. The lung s are free of acute opacities. There is no pleural effusion or pneumothorax. There are changes of fus ion procedure is in the cervical and thoracolumbar spine. IMPRESSION: 1. No acute cardiopulmonary abnormality. Reviewed, dictated and finalized at location A.
--- NOTE | ~2020-03-13 | CT_ITS ---
EXAMINATION: CT brain wo con INDICATION: Fall, possible head injury COMPARISON: 02/10/2020 TECHNIQUE: Standard unenhanced head CT. The dose-length product (DLP) was 605.33 mGy-cm. The mA was a djusted according to patient size. Iterative reconstruction technique was employed. FINDINGS: There is no intracranial hemorrhage, acute infarction, or abnormal mass lesion. The ventric les are normal. There is no abnormal mass effect or midline shift. There is moderate periventricular and subcortical hypodensity, nonspecific but probably related to small vessel ischemic disease. The b lola cisterns are patent. The orbits are normal. There is mild mucosal thickening of the paranasal si nuses. IMPRESSION: 1. No acute intracranial abnormality. Reviewed, dictated and finalized at location A.
--- NOTE | ~2020-03-13 | XR_ITS ---
EXAMINATION: XR shoulder RT min 2V INDICATION: Right shoulder pain after fall TECHNIQUE: Four views of the right shoulder are submitted. COMPARISON: None FINDINGS: Normal alignment. No fracture. There is mild glenohumeral and acromioclavicular joint osteo arthritis. A right subclavian Port-A-Cath is noted. There are changes of thoracolumbar and cervical f usion procedures. Soft tissues are unremarkable. IMPRESSION: No acute osseous abnormality. Reviewed, dictated and finalized at location A.
--- NOTE | ~2020-03-13 | XR_ITS ---
EXAMINATION: XR hand LT min 3V INDICATION: Left hand pain TECHNIQUE: Three views of the left hand are obtained. COMPARISON: 10/14/2018, 01/26/2018 FINDINGS: There appears to be a nondisplaced transverse fracture at the base of the fifth proximal ph alanx. Soft tissue swelling surrounds the fracture. No additional acute osseous findings are evident. There is an old ulnar styloid avulsion injury. There is mild to moderate osteoarthritis at multiple interphalangeal joints as well as at the triscaphe and first carpometacarpal joints. IMPRESSION: 1. Likely nondisplaced transverse fracture at the base of the fifth proximal phalanx. Reviewed, dictated and finalized at location A. IMPRESSION: 1. Likely nondisplaced transverse fracture at the base of the fifth proximal ph alanx.
[2020-03-13 20:44] VITALS: BP 117/74; PULSE 109; RESP 20; TEMP 36.7; O2SAT 92
--- NOTE | 2020-03-13 20:49 | ED.SEIZURE ---
HPI - Seizure General Chief Complaint: Seizure Stated Complaint: seizure Time Seen by Provider: 03/13/20 20:41 History of Present Illness HPI Narrative: Patient presents emergency department from home via EMS for seizure. Patient states she has a history of seizure disorder and is currently on Keppra 1000 milligrams twice daily. States she has been taking her medicine with her last dose this morning. States that this afternoon she had a seizure and fell. She states she struck her right shoulder has been having pain in her right shoulder since the seizure. Patient is currently followed by neurology as well as her PCP Dr. Ibarra. She denies any vision changes numbness or tingling of the extremities chest pain shortness of breath or any other symptoms at this time. Denies any recent illness Seizure History: Yes (since 2007) Related Data Home Medications Medication Instructions Recorded Confirmed nvklmgidut-kwhiodaexzbig-kdcf 2 tablet PO PRN PRN 12/20/19 12/20/19 ibuprofen 400 mg PO TID PRN 12/20/19 12/20/19 Allergies Allergy/AdvReac Type Severity Reaction Status Date / Time Sulfa (Sulfonamide Allergy Unknown Unknown Verified 02/10/20 16:12 Antibiotics) Review of Systems Review of Systems: Narrative: Gen.: Denies fevers or chills Eyes: Denies eye pain or visual change ENT: Denies congestion Respiratory: Denies shortness of breath or cough CV: Denies chest pain or palpitations GI: Denies abdominal pain nausea, emesis or diarrhea Musculoskeletal: Reports right shoulder pain Neuro: Denies numbness, tingling, weakness or focal weakness reports seizure Skin: Denies rash Except as documented, all other systems reviewed and negative [facility] Past Medical History Medical History Anxiety Back pain with history of spinal surgery Miller rods placed due to scoliosis Colon cancer Depression Fracture of right ankle, lateral malleolus Nondisplaced comminuted fracture lateral malleolus 11/13/2019 Frequent falls GERD (gastroesophageal reflux disease) GI bleed With history of gastric and duodenal ulcer 09/2018 Hepatitis C Has a teenage History of colon cancer Status post sigmoid resection 05/05/2017 Hx of seizure disorder With normal EEG and MRI demonstrating arachnoid cyst in the left temporal lobe with chronic small-vessel ischemic changes in November 2016 IBS (irritable bowel syndrome) 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 Family History Family History (Updated 12/21/19 @ 04:41 by Africa Brannon DO) Mother Diabetes mellitus Hypertension COPD (chronic obstructive pulmonary disease) Father MVA (motor vehicle accident) Alcohol abuse Sibling Drug overdose Social History Social History Social History: Primary care physician: Dr. Carolyn Ibarra Code status: Full code per EMR Smoking packs per day: 1 Smoking cigarettes per day: 20.0 Years smoked: 46 Smoking pack-years: 46.00 Smoking status: Current every day smoker Tobacco type: cigarettes Second hand tobacco smoke exposure: Yes Alcohol intake: current Drinks per week: 3 Substance use: never Substance use type: does not use Additional living arrangements comments: Pt lives in an apartment complex. Additional occupation/education comments: The patient reports that she is disabled due to her seizures. Gender identity (if verbalized by the patient): Female Spiritual care concerns: No Agree to blood products: Yes Exam Narrative: Exam Narrative: APPEARANCE: No acute distress, nontoxic, resting in bed EYES: EOMI, PERRL HEENT: Normocephalic, atraumatic, OMM, TMs clear bilaterally Neck: Supple, no midline tenderness palpation, full range of motion without pain RESPIRATORY: No respiratory distress Clear to auscultation bilaterally with no rhonchi wheez
[2020-03-13 21:22] LABS: Basophils Absolute Auto 0.1 K/mm3 (0.0-0.1); Basophils Percent Auto 0.5 % (0.2-1.2); Eosinophils Percent Auto 0.2 % (0-4.4); Hematocrit 40.6 % (37.0-47.0); Hemoglobin 13.1 g/dL (12.0-15.0); Immature Granulocyte Absolute 0.05 K/mm3 (0.00-0.031); Immature Granulocyte Percent A 0.5 % (0-0.5); Lymphocytes Absolute Auto 3.76 K/mm3 (0.9-3.2); Lymphocytes Percent Auto 35.8 % (18.3-44.2); Mean Corpuscular HGB Conc 32.3 g/dl (32-36); Mean Corpuscular Hemoglobin 30.8 pg (26-34); Mean Corpuscular Volume 95.5 fl (80-100); Mean Platelet Volume 8.7 fl (7.4-10.4); Monocytes Absolute Auto 1.1 K/mm3 (0.1-0.6); Monocytes Percent Auto 10.4 % (2.6-8.5); Neutrophils Absolute Auto 5.5 K/mm3 (1.3-6.7); Neutrophils Percent Auto 52.6 % (45.5-73.1); Platelet Count Result 311 k/mm3 (150-375); Red Blood Count 4.25 M/mm3 (4.2-5.4); Red Cell Distribution Width 15.8 % (11.5-14.5); White Blood Count 10.5 K/mm3 (4.5-10.0)
[2020-03-13 21:24] LABS: Add Urine Microscopic? NO; Appearance Urine Clear (Clear); Bilirubin Urine Negative (Negative); Blood Urine Negative (Negative); Color Urine Colorless (Yellow); Glucose Urine UA Negative (Negative); Ketones Urine Negative (Negative); Leukocyte Esterase Ur Negative LEU/UL (Negative); Nitrate Urine Negative (Negative); Protein Urine Negative (Negative); Specific Grav Ur 1.005 (1.001-1.035); Urobilinogen Urine Negative mg/dL (<2.0)
[2020-03-13 21:31] LABS: Alanine Aminotransferase 53 U/L (4-35); Albumin Level 4.3 g/dL (3.5-5.1); Alkaline Phosphatase 171 U/L (38-126); Aspartate Amino Transferase 100 U/L (14-36); Bilirubin,Total 0.4 mg/dL (0.2-1.3); Blood Urea Nitrogen 11 mg/dL (7-17); Calcium 8.9 mg/dL (8.4-10.2); Carbon Dioxide 21 mmol/L (22-30); Chloride 104 mmol/L (98-107); Estimated CRCL calculation 69 ml/min; Estimated Glomerular Filt Rate > 60; Glucose 110 mg/dL (65-105); Potassium 4.4 mmol/L (3.4-5.0); Sodium 140 mmol/L (137-145)
[2020-03-13 22:40] VITALS: PULSE 111
[2020-03-13] MEDS: levETIRAcetam 500 MG TABLET 1000 MG PO (23:40)
--- NOTE | 2020-03-14 00:16 | PC.NURSE ---
pt requested to stay at hospital. pt states she does not feel safe at home, because she lives by herself. notified edp.
[2020-03-14 00:17] VITALS: BP 124/86; PULSE 112; RESP 16; O2SAT 93
[2020-03-14 01:52] VITALS: BP 130/86; PULSE 96; RESP 18; O2SAT 96
[2020-03-14 02:37] VITALS: BP 127/70; PULSE 118; RESP 18; O2SAT 97
== END 2020-03-14 02:39 | disposition home or self-care (01) ==
PROVIDERS: Emergency Provider Emergency Medicine; PCP Family Medicine
DX: G40.909 Epilepsy, unspecified, not intractable, without status epilepticus (principal); S62.617A Displaced fracture of proximal phalanx of left little finger, initial encounter for closed fracture; W18.30XA Fall on same level, unspecified, initial encounter; S40.011A Contusion of right shoulder, initial encounter; F41.9 Anxiety disorder, unspecified; F32.9 Major depressive disorder, single episode, unspecified; K21.9 Gastro-esophageal reflux disease without esophagitis
CPT/HCPCS: 29130; 36415; 70450; 71045; 73030; 73130; 80053; 81003; 85025; 99284; A9270

== ENCOUNTER 2020-03-28 15:15 | Emergency (ER) | payer MEDICARE, MEDICAID, SELFPAY ==
--- NOTE | ~2020-03-28 | CT_ITS ---
EXAMINATION: CT thoracic lumbar wo con EXAM DATE: 03/28/2020 16:46 INDICATION: Seizure, mid and low back pain. Injury. TECHNIQUE: Spiral CT thoracolumbar spine was performed without contrast. Axial, coronal and sagittal images of the thoracic spine were reviewed. Axial, coronal and sagittal images of the lumbar spine we re reviewed. The dose-length product (DLP) for this examination was 1111.52 mGy-cm. The exposure was tailored according to patient size (auto mA exposure control), and iterative reconstruction (ASIR) w as used as additional dose reduction technique. There is no prior study for comparison. FINDINGS: THORACIC SPINE: Moderate to severe thoracic dextroscoliosis and thoracolumbar levoscoliosis, with tho racolumbar Miller rods without evidence of hardware fracture. Metallic artifact does cause some l imitations in terms of visualization of vertebral bodies, but there is no acute fracture line identif ied. 2 lower thoracic vertebral bodies have been treated with vertebroplasty. There are mild compress ion fractures of multiple thoracic vertebral bodies which appear chronic. There is no thoracic parasp inal hematoma. There is moderately atrophic left kidney. Lipomatous hypertrophy of the interatrial se ptum. Right-sided portacatheter. Overall moderate mid and lower thoracic disc disease. LUMBAR SPINE: There is rectosigmoid anastomosis site. Paraspinal soft tissue is unremarkable. Large l eft nephrolithiasis. Thoracolumbar Miller rods appear intact, causing artifact limiting evaluatio n. Sacrum unremarkable. There is no evidence of acute lumbar fracture or spondylolysis. There is no disc space widening or traumatic vertebral body subluxation suspected. Paraspinal soft tissue is un remarkable. Mild to moderate loss of T12, L2-L5 vertebral bodies, appear to be chronic compression f ractures. A detailed level by level evaluation of spondylosis can be added as addendum if requested. IMPRESSION: 1. Multiple thoracolumbar compression fractures which appear chronic but difficult to exclude acute component to one or more of them. No paraspinal hematomas or evidence of unstable injury. 2. Intact thoracolumbar fusion hardware, Miller rods. Reviewed, dictated and finalized at location A. IMPRESSION: 1. Multiple thoracolumbar compression fractures which appear chronic but diffi cult to exclude acute component to one or more of them. No paraspinal hematomas or evidence of unstable injury. 2. Intact thoracolumbar fusion hardware, Miller rods.
--- NOTE | ~2020-03-28 | CT_ITS ---
EXAMINATION: CT cervical spine wo con EXAM DATE: 03/28/2020 16:46 INDICATION: Neck pain and upper back pain after seizure 2 days ago. Initial encounter. Trauma. Cervic al fusion. TECHNIQUE: Spiral CT of the cervical spine was performed without contrast. Axial images were reviewe d. Coronal and sagittal reformatted images were also reviewed. The dose-length product (DLP) for thi s examination was 442.44 mGy-cm. The exposure was tailored according to patient size (auto mA exposu re control), and iterative reconstruction (ASIR) was used as additional dose reduction technique. Com parison is made to prior examination from 12/20/2019. FINDINGS: There is intact anterior fusion hardware at C5-7. There is no evidence of acute cervical fr acture. The odontoid process is intact. Pre-dens space is normal. Prevertebral soft tissue is norm al. There are no soft tissue abnormalities identified. There is no disc space widening or traumatic vertebral body subluxation suspected. Moderate to severe disc disease at C7-T1, otherwise mild to m oderate cervical disc disease. There is advanced upper cervical facet arthropathy. A detailed level by level evaluation of spondylosis can be added as addendum if requested. There is no significant interval change. IMPRESSION: 1. Intact cervical fusion C5-7. 2. Cervical spondylosis unchanged. Reviewed, dictated and finalized at location A.
--- NOTE | ~2020-03-28 | XR_ITS ---
EXAMINATION: XR foot RT min 3V EXAM DATE: 03/28/2020 16:51 INDICATION: Right foot pain. Injury. Initial encounter. Toe bruising. Posterior heel pain. TECHNIQUE: Right foot dorsoplantar, lateral and oblique projections obtained and reviewed. Correlati on is made to right ankle exam 11/13/2019. FINDINGS: There is small juxta-articular erosion at the right 1st metatarsal head, appearance most consistent with gout. Mild scattered primary osteoarthritis. There are no acute fractures or dislocat ions identified. There is no subcutaneous gas. The soft tissue is unremarkable. There are no radi opaque foreign bodies. IMPRESSION: 1. Right foot exam without acute osseous findings. 2. Small right 1st metatarsal head erosion most consistent with gout. Reviewed, dictated and finalized at location A.
[2020-03-28 15:19] VITALS: BP 153/94; PULSE 98; RESP 18; TEMP 36.8; O2SAT 94
--- NOTE | 2020-03-28 15:58 | ED.NECK ---
HPI - Neck Pain/Injury General Chief Complaint: Neck Pain/Injury Stated Complaint: SEIZURE 2D AGO, NECK PAIN Time Seen by Provider: 03/28/20 15:27 Source: patient Mode of arrival: ambulatory Limitations: no limitations History of Present Illness HPI Narrative: Patient is a 64-year-old female with a history of epilepsy taking Keppra who presents for evaluation of neck pain, foot pain, lower back pain following a seizure 2 days ago and fall. Patient states she has a history of breakthrough seizures, has recently increased her Keppra medications. She states that she thinks that she had a fall out of bed 2 nights ago from a seizure and is presenting with right-sided neck pain with radiation into the shoulder, without chest pain or shortness of breath. Patient also reports worsening of the pain when she moves her head to the right side. She reports the pain is sharp, shooting in nature sometimes with radiation down her arm. Patient denies midline neck pain. No numbness in the lower extremities. No difficulty with ambulation. She reports bruising to the right foot and lower back pain as well. Patient has a history of numerous spine surgeries, with esdras placement in her spine for previous scoliosis. Related Data Home Medications Medication Instructions Recorded Confirmed amegbgacmg-sxtqiijcpeybv-dche 2 tablet PO PRN PRN 12/20/19 12/20/19 ibuprofen 400 mg PO TID PRN 12/20/19 12/20/19 levetiracetam [Keppra] 1,500 mg PO BID 03/28/20 Allergies Allergy/AdvReac Type Severity Reaction Status Date / Time Sulfa (Sulfonamide Allergy Unknown Unknown Verified 03/28/20 15:23 Antibiotics) Review of Systems Review of Systems: Narrative: CONSTITUTIONAL: Denies fever, chills, or sweats. EYES: Denies visual changes, redness, or discharge. ENT: Denies rhinorrhea, congestion, sore throat, or otalgia. CARDIOVASCULAR: Denies chest pain, palpitations, or edema. RESPIRATORY: Denies cough or dyspnea. GASTROINTESTINAL: Denies abdominal pain, nausea, vomiting, or diarrhea. GENITOURINARY: Denies dysuria or hematuria. SKIN: Denies rash or itching. MUSCULOSKELETAL: Reports back pain, right foot pain NEUROLOGIC: Denies headache, numbness, or weakness. [facility] Past Medical History Medical History Anxiety Back pain with history of spinal surgery Miller rods placed due to scoliosis Colon cancer Depression Fracture of right ankle, lateral malleolus Nondisplaced comminuted fracture lateral malleolus 11/13/2019 Frequent falls GERD (gastroesophageal reflux disease) GI bleed With history of gastric and duodenal ulcer 09/2018 Hepatitis C Has a teenage History of colon cancer Status post sigmoid resection 05/05/2017 Hx of seizure disorder With normal EEG and MRI demonstrating arachnoid cyst in the left temporal lobe with chronic small-vessel ischemic changes in November 2016 IBS (irritable bowel syndrome) 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 Surgical History Surgical History History of bilateral carpal tunnel release History of bone graft from LLE to repair bilateral wrist fractures History of colon resection sigmoid due to colon cancer April 2017 History of cystoscopy with stents March 2017 Hx of section Port-A-Cath in place Scoliosis deformity of spine With surgical repair Wrist fracture, bilateral Requiring bone graft Family History Family History Mother Diabetes mellitus Hypertension COPD (chronic obstructive pulmonary disease) Father MVA (motor vehicle accident) Alcohol abuse Sibling Drug overdose Social History Social History Social History: Primary care physician: Dr. Carolyn Ibarra Code status: Full code per EMR Smoking packs per day:
[2020-03-28 18:27] VITALS: BP 156/93; PULSE 113; RESP 17; O2SAT 97
== END 2020-03-28 18:28 | disposition home or self-care (01) ==
PROVIDERS: Emergency Provider Emergency Medicine; PCP Family Medicine
DX: G40.909 Epilepsy, unspecified, not intractable, without status epilepticus (principal); Z85.038 Personal history of other malignant neoplasm of large intestine; Z86.19 Personal history of other infectious and parasitic diseases; K58.9 Irritable bowel syndrome, unspecified; F17.210 Nicotine dependence, cigarettes, uncomplicated
CPT/HCPCS: 72125; 72128; 72131; 73630; 99284; A9270

== ENCOUNTER 2020-04-08 20:17 | Inpatient (IN) | payer MEDICARE, MEDICAID, SELFPAY ==
[2020-04-08] VITALS (7 sets, daily range): BP systolic 122–137; BP diastolic 73–92; PULSE 114–124; RESP 14–25; TEMP 37–37.5; O2SAT 93–95
--- NOTE | ~2020-04-08 | XR_ITS ---
EXAMINATION: XR clavicle RT INDICATION: Right shoulder pain TECHNIQUE: Three views of the right clavicle are obtained. COMPARISON: None available FINDINGS: There is an acute, traumatic, closed fracture involving the proximal third of the clavicle. There is approximately one cortical width of inferior displacement of the distal fracture fragment. A partially imaged right subclavian Port-A-Cath is noted. Alignment at the shoulder is normal. Change s of cervical spinal fusion are noted. IMPRESSION: 1. Minimally displaced fracture of the proximal third of the clavicle. Reviewed, dictated and finalized at location A.
--- NOTE | ~2020-04-08 | CT_ITS ---
EXAMINATION: CT brain wo con DATE: 04/08/2020 20:38 INDICATION: Seizure. TECHNIQUE: Computed tomography (CT) of the head was performed without intravenous contrast. The mA wa s adjusted according to patient size. Iterative reconstruction technique was employed. The dose-lengt h product was 605.33 mGy-cm. COMPARISON: Head CT 03/13/2020 FINDINGS: There are scattered areas of low attenuation in the cerebral white matter. There is no intr acranial hemorrhage, acute infarction, or abnormal intracranial mass lesion. The ventricles are marge l in size. The orbits are normal. There is near complete opacification of left maxillary sinus. There is mild mucosal thickening in the other paranasal sinuses. The mastoid air cells are normal. IMPRESSION: 1. Unchanged moderate nonspecific cerebral white matter disease, which likely represents chronic smal l vessel ischemic disease. Reviewed, dictated and finalized at location A. IMPRESSION: 1. Unchanged moderate nonspecific cerebral white matter disease, which likely r epresents chronic small vessel ischemic disease.
--- NOTE | ~2020-04-08 | XR_ITS ---
EXAMINATION: XR shoulder RT min 2V DATE: 04/10/2020 14:45 INDICATION: Right shoulder pain. TECHNIQUE: 4 views of right shoulder were obtained. COMPARISON: Right shoulder radiographs 03/13/2020 FINDINGS: Bone alignment is normal. No fracture. Joint spaces are well maintained. There are changes of anterior fusion procedure in cervical spine and posterior fusion procedure in thoracolumbar spine. There is a right subclavian port. IMPRESSION: 1. Normal right shoulder. Reviewed, dictated and finalized at location A. IMPRESSION: 1. Normal right shoulder.
--- NOTE | ~2020-04-08 | XR_ITS ---
EXAMINATION: XR chest 2V DATE: 04/09/2020 09:31 INDICATION: Cough. Leukocytosis. TECHNIQUE: Frontal and lateral views of the chest were obtained. COMPARISON: Chest single view 03/13/2020, thoracic spine CT 03/28/2020 FINDINGS: The chest demonstrates clear lungs without pneumonia, pleural effusion, or pneumothorax. Th e heart size is normal. There is a right subclavian port with tip in superior vena cava. There are ch anges of anterior fusion procedure in cervical spine. There are changes of posterior fusion procedure in lumbar spine. There is a transverse fracture involving the medial third of right clavicle. The di stal fracture fragment demonstrates 2 mm inferior displacement. IMPRESSION: 1. No acute cardiopulmonary disease. 2. Subacute right clavicle fracture. Reviewed, dictated and finalized at location A.
--- NOTE | 2020-04-08 20:22 | ECG_ITS ---
Measurements Intervals [place] Rate: 119 P: VA: 0 QRS: 67 QRSD: 76 T: 81 QT: 312 QTc: 439 Interpretive Statements SINUS TACHYCARDIA LOW QRS VOLTAGE IN PRECORDIAL LEADS BORDERLINE T WAVE ABNORMALITY- HIGH LATERAL LEADS BASELINE WANDER- V3-V4 ABNORMAL ECG Electronically Signed On 04-09-2020 8:03:33 CDT by Jules Workman D.O.
--- NOTE | 2020-04-08 20:23 | ED.GENADULT ---
HPI - General Adult General Chief complaint: Weakness Stated complaint: seizure History of Present Illness HPI narrative: 64 yo female with h/o alcoholism and seizures presents to the ED for weakness. She reports that she is shakey and has difficulty walking. She believes that she had a seizure last night, because she awoke with a black eye the next morning. She says that she only drinks occasionally, last drink was a glass of wine last night. On chart review she has presented multpile times with ethanol over 300 Related Data Home Medications Medication Instructions Recorded Confirmed womghxuhfm-pxshmroysnnoa-vkhk 2 tablet PO PRN PRN 12/20/19 04/09/20 ibuprofen 400 mg PO TID PRN 12/20/19 04/09/20 levetiracetam [Keppra] 3,000 mg PO BID 03/28/20 04/09/20 Allergies Allergy/AdvReac Type Severity Reaction Status Date / Time Sulfa (Sulfonamide Allergy Unknown Unknown Verified 04/08/20 20:22 Antibiotics) Review of Systems Review of Systems: All systems reviewed & are unremarkable except as noted in HPI and below Constitutional: Constitutional: Reports fatigue, Denies fever(s) and Reports weakness Eyes: Eyes: Denies change in vision Cardiovascular: Cardiovascular: Denies chest pain Respiratory: Respiratory: Denies dyspnea Gastrointestinal: Gastrointestinal: Denies abdominal pain Genitourinary: Genitourinary: Denies dysuria Neurologic: Denies numbness and Denies weakness [facility] Past Medical History Medical History Anxiety Back pain with history of spinal surgery Miller rods placed due to scoliosis Colon cancer Depression Fracture of right ankle, lateral malleolus Nondisplaced comminuted fracture lateral malleolus 11/13/2019 Frequent falls GERD (gastroesophageal reflux disease) GI bleed With history of gastric and duodenal ulcer 09/2018 Hepatitis C Has a teenage History of colon cancer Status post sigmoid resection 05/05/2017 Hx of seizure disorder With normal EEG and MRI demonstrating arachnoid cyst in the left temporal lobe with chronic small-vessel ischemic changes in November 2016 IBS (irritable bowel syndrome) 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 Surgical History Surgical History History of bilateral carpal tunnel release History of bone graft from LLE to repair bilateral wrist fractures History of colon resection sigmoid due to colon cancer April 2017 History of cystoscopy with stents March 2017 Hx of section Port-A-Cath in place Scoliosis deformity of spine With surgical repair Wrist fracture, bilateral Requiring bone graft Family History Family History Mother Diabetes mellitus Hypertension COPD (chronic obstructive pulmonary disease) Father MVA (motor vehicle accident) Alcohol abuse Sibling Drug overdose Social History Social History Social History: Primary care physician: Dr. Carolyn Ibarra Code status: Full code per EMR Smoking packs per day: 1 Smoking cigarettes per day: 20.0 Years smoked: 47 Smoking pack-years: 47.00 Smoking status: Current every day smoker Tobacco type: cigarettes Second hand tobacco smoke exposure: Yes Alcohol intake: current Drinks per week: 1 Substance use: unknown Substance use type: does not use Additional living arrangements comments: Pt lives in an apartment complex. Additional occupation/education comments: The patient reports that she is disabled due to her seizures. Gender identity (if verbalized by the patient): Female Sexual Orientation (if Verbalized by the Patient): Straight or Heterosexual Spiritual care concerns: No Agree to blood products: Yes Exam Const: General: no acute distress, alert and il
[2020-04-08 20:36] LABS: Basophils Percent Auto 0.3 % (0.2-1.2); Eosinophils Percent Auto 0.3 % (0-4.4); Hematocrit 41.2 % (37.0-47.0); Hemoglobin 13.3 g/dL (12.0-15.0); Immature Granulocyte Absolute 0.09 K/mm3 (0.00-0.031); Immature Granulocyte Percent A 0.8 % (0-0.5); Lymphocytes Absolute Auto 3.16 K/mm3 (0.9-3.2); Lymphocytes Percent Auto 27.3 % (18.3-44.2); Mean Corpuscular HGB Conc 32.3 g/dl (32-36); Mean Corpuscular Hemoglobin 32.6 pg (26-34); Mean Platelet Volume 9.5 fl (7.4-10.4); Monocytes Percent Auto 8.8 % (2.6-8.5); Neutrophils Absolute Auto 7.2 K/mm3 (1.3-6.7); Neutrophils Percent Auto 62.5 % (45.5-73.1); Platelet Count Result 329 k/mm3 (150-375); Red Blood Count 4.08 M/mm3 (4.2-5.4); Red Cell Distribution Width 16.1 % (11.5-14.5); White Blood Count 11.6 K/mm3 (4.5-10.0)
[2020-04-08] MEDS: THIAMINE HCL 200 MG/2 ML VIAL 100 MG IV PUSH (20:41)
[2020-04-08] MEDS: SODIUM CHLORIDE 0.9% IV 1,000 ML 999 ML IV CONT ×2 (20:42→21:45)
[2020-04-08 20:49] LABS: Ethanol 156 mg/dL (<10)
[2020-04-08 21:04] LABS: Alanine Aminotransferase 33 U/L (4-35); Albumin Level 3.8 g/dL (3.5-5.1); Alkaline Phosphatase 167 U/L (38-126); Aspartate Amino Transferase 70 U/L (14-36); Bilirubin,Total < 0.1 mg/dL (0.2-1.3); Blood Urea Nitrogen 10 mg/dL (7-17); Carbon Dioxide 17 mmol/L (22-30); Chloride 109 mmol/L (98-107); Estimated CRCL calculation 99 ml/min; Estimated Glomerular Filt Rate > 60; Glucose 117 mg/dL (65-105); Lactic Acid Reflex 2.5 mmol/L (0.7-2.1); Sodium 139 mmol/L (137-145)
[2020-04-08 21:06] LABS: Creatine Kinase 837 U/L (30-135)
[2020-04-08 21:11] LABS: INR 0.9; Prothrombin Time 11.6 Seconds (11.1-14.7)
[2020-04-08 21:12] LABS: Partial Thromboplastin Time 24.7 SECONDS (22.3-36.8)
[2020-04-08 21:17] LABS: Add Urine Microscopic? YES; Appearance Urine Clear (Clear); Bacteria Urine Trace /hpf; Bilirubin Urine Negative (Negative); Blood Urine Negative (Negative); Color Urine Yellow (Yellow); Glucose Urine UA Negative (Negative); Ketones Urine Negative (Negative); Leukocyte Esterase Ur 1+ LEU/UL (Negative); Mucus Urine Rare /lpf; Nitrate Urine Negative (Negative); Protein Urine Negative (Negative); RBC Urine 0-2 /hpf (0-2); Specific Grav Ur 1.016 (1.001-1.035); Squamous Epithelial Cell Urine Few /hpf (Few); Urobilinogen Urine Negative mg/dL (<2.0); WBC Urine 0-3 /hpf
--- NOTE | 2020-04-08 22:34 | PC.NURSE ---
Fluids paused at this time due to current IV being very positional, attempting to start another IV.
[2020-04-08 23:47] LABS: Reflex Lactic Acid Yes or No Add Lactic
[2020-04-09] VITALS (12 sets, daily range): BP systolic 132–150; BP diastolic 73–88; PULSE 92–126; RESP 17–21; TEMP 36.2–37.3; O2SAT 92–95; BMI 33.3
--- NOTE | 2020-04-09 00:12 | PC.NURSE ---
Patient assisted to bathroom with minimal assistance. Patient stated her generalized pain is getting worse, Dr Saunders aware.
[2020-04-09 00:14] LABS: Lactic Acid 1.5 mmol/L (0.7-2.1)
[2020-04-09] MEDS: LORAZEPAM INJ 2 MG/ML VIAL IV PUSH (00:20)
--- NOTE | 2020-04-09 02:02 | ADMGEN ---
This patient, Carolyn Royal, was admitted to [facility] Surg Room 314-01. Patient/family oriented to hospital policies and general routines including ID bracelet, bed and alarms, visiting hours, pain management, procedures, bathroom and other care routines, personal items, smoking policy, room service/diet, and visiting hours. Valuables list has been completed. Information on how to activate the Rapid Response Team has been discussed. Patient/Family are encouraged to report perceived risks to care and to ask questions if they do not understand what they are told or what they should do.
[2020-04-09] MEDS: LACTATED RINGERS 1,000 ML 100 ML IV CONT ×3 (02:22→21:03)
[2020-04-09] MEDS: LORAZEPAM INJ 2 MG/ML VIAL 1 MG IV PUSH ×5 (04:26→23:55)
--- NOTE | 2020-04-09 05:19 | PM.IMHP ---
H&P: HPI History of Present Illness Chief complaint: Weakness, ?multiple seizures? Narrative: Date and time of patient contact: 04/09/2020 at 4:40 a.m. Carolyn Royal is a 64 year old female with a past medical history of seizure disorder, anxiety, chronic pain and multiple medical encounters for alcohol use who presented to the ER due to seizure 2 days ago and a fall 2 days ago and she thought that she may have a seizure earlier today. The patient has been evaluated in the ER on January 28, March 13, March 28, and today. The patient reported on the ER visit that she did not know her home Keppra dosing. The next ER visit the patient reported she was taking 3 tablets of Keppra in the morning and 2 tablets in the evening. On her 3rd ER visit she reported she was taking 1 gram of Keppra b.i.d. and she received a gram of Keppra IV prior to discharge. was contacted and recommended patient follow-up with him as outpatient. She had a script filled on March 13 for 1500 mg of Keppra by her primary care physician. She reports to me that her primary care physician in the interim between her ER visit on the and her visit today has increased her Keppra from 1500 mg twice a day up to 2000 mg twice a day and a few days ago told the patient to increase her Keppra to 3000 mg twice a day. She had an outpatient EEG 02/17/2020 that was negative for any seizure activity. Today the patient presented to the ER complaining of weakness. She reported that she had been shaky and having difficulty walking. She told the ER staff that she had fallen on the as well and was unable to get out of bed on the . She tells me at the time of my interview that she had been outside sitting around with some friends drinking ?a few beers? while she was out there drinking with her friends 1 of her friends commented that she got a funny look on her face and was staring off into space. The patient stated that that is why she came into the ER. She told the ER staff that she had had a glass of wine on the night of the denied having drink any alcohol since that time (had not admitted to sitting around and drinking beer with her friends prior to coming in). The patient reports that her toes are still swollen from when she came to the ER on the . However, there is minimal swelling if any at the time of my evaluation. The patient has had multiple medical counters in the past where her alcohol level has been greater than 300. Her alcohol level this admission was greater than 150. She keeps giving variable information regarding her alcohol use. She told the ER staff that she had only drank 1 glass a wine on the and did not admit to drinking beers until I confronted her about her alcohol level. The patient has been referred to follow-up with neurology multiple times in the past following admissions for her seizures. She did not follow-up with Dr. Efe Chun as instructed after her last hospitalization in November. I tried to provide education regarding the importance of following up with Neurology at discharge. The patient has also been having increased cough since she came to the hospital. She still smokes 1 pack of cigarettes per day. She denies any fevers or chills. She denies any recent ill contacts or exposures to COVID-19. Unfortunately, it does not sound as if the patient has necessarily been social distancing. Review of Systems Review of Systems: Narrative: 12 systems were reviewed with pertinent positives and negatives per HPI. Except as documented in the HPI, all other systems were reviewed and are negative. [facility] Past Medical History Medical History Anxiety Back pain with history of spinal surgery Miller rods placed due to scoliosis Colon cancer Depression Fracture of right ankle, lateral malleolus Nondisplaced comminuted fracture lateral malleolus 11/13/2019 Frequent falls
[2020-04-09] MEDS: levETIRAcetam 500 MG TABLET 1500 MG PO (08:11)
[2020-04-09] MEDS: FOLIC ACID 1 MG TABLET PO (08:12)
[2020-04-09] MEDS: MULTIVITAMINS THERAPEUTIC TAB (*BKC) 1 TABLET PO (08:12)
[2020-04-09] MEDS: LIDOCAINE 5% PATCH 1 PATCH TRANSDERM (08:12)
--- NOTE | 2020-04-09 13:34 | PM.IMPN ---
Progress Note: A&P Assessment and Plan (1) Rhabdomyolysis: Qualifiers: Rhabdomyolysis type: non-traumatic Qualified Code(s): M62.82 - Rhabdomyolysis Code(s): M62.82 - Rhabdomyolysis Status: Acute Assessment and Plan: -----likely the cause of her diffuse pain. Continue home pain medications as she takes oxycodone. Dose verified by RN. Will check another CK tomorrow morning. Await neurology's recommendations. Likely due to recent seizure but cannot rule out elevated CK due to Keppra medication itself, especially if she is utilizing a higher dose than recommended. (2) Seizure disorder: Code(s): G40.909 - Epilepsy, unspecified, not intractable, without status epilepticus Status: Acute Assessment and Plan: -----Complicated by the patient's history of alcohol use. She denies heavy alcohol use but the fact that she has had multiple visits were alcohol level is been greater than 300 somewhat makes this claim less likely. The patient states that her primary care physician recently increased her Keppra (within the last 2 weeks) from 1500 mg b.i.d. up to 3000 mg b.i.d. I am going to call and verify this with her primary care tomorrow morning Neurology has been consulted to help further management the patient's seizure medications. Patient states that she had an EEG recently that was normal. Her seizures started after her The importance of following up with Neurology on discharge has been discussed with the patient in great detail. await neurologys recs (3) Alcohol dependence: Qualifiers: Substance use status: unspecified alcohol-induced disorder Qualified Code(s): F10.29 - Alcohol dependence with unspecified alcohol-induced disorder Code(s): F10.20 - Alcohol dependence, uncomplicated Status: Acute Assessment and Plan: -----Continue CIWA. Last score 1. Continue multivitamin and folic acid supplementation as well as oral time and supplementation today. Time Spent With Patient Time with patient: 25 - 35 minutes Subjective Date/time seen: 04/09/20 13:34 Interval history: Pt is a 64-year-old female here for diffuse body pain and possible seizure. Patient states that she woke up Friday morning and felt like she was going to . She said she had pain from her head to her toes and felt very achy. She also been noticed that she had a black eye on her left eye which was not there before. She figured she had a seizure and carried on with the rest the day. She went and saw her neighbors and had a couple glasses of wine and then decided it was probably best to come the emergency room because she was having pain. She did not have anybody witness the seizure and she does not remember it. She has no numbness, tingling or weakness to any part of her body. Her last seizure was a couple weeks ago and she says that her Keppra was increased to 3000 mg b.i.d. by her primary care physician Carolyn Ibarra. She denies constipation, shortness of breath, or chest pain. She had 1 episode of soft diarrhea Friday night and another episode of soft diarrhea this morning. No abdominal pain with this. She says she feels weak and unsteady and generally just not well. She does not follow up with the neurologist. Her seizures started 10 years ago after her . She says she drinks about 3 glasses of wine 3 times a week. Review of Systems Review of Systems: All systems reviewed & are unremarkable except as noted in HPI and below Exam Narrative: Exam Narrative: General: Well developed well nourished patient resting in bed in NAD HEENT: normocephalic, no pain to the neck. Left eye had some ecchymosis underneath. No issues with ocular movements Neck: supple Neuro: Alert and oriented x4. Equal strength the upper lower extremities 5/5. Cranial nerves 2-12 intact. Able to do rapid alternating movements and [id number]. CV:RRR Resp:CTA Abd: S
[2020-04-09] MEDS: THIAMINE HCL 100 MG TABLET PO (14:47)
[2020-04-09 14:55] LABS: Blood Urea Nitrogen 9 mg/dL (7-17); Calcium 8.7 mg/dL (8.4-10.2); Carbon Dioxide 26 mmol/L (22-30); Chloride 106 mmol/L (98-107); Creatine Kinase 401 U/L (30-135); Estimated CRCL calculation 57 ml/min; Estimated Glomerular Filt Rate > 60; Glucose 111 mg/dL (65-105); Potassium 4.1 mmol/L (3.4-5.0); Sodium 134 mmol/L (137-145)
--- NOTE | 2020-04-09 15:22 | PCOTNOTE ---
Patient educated on purpose of OT, pt refused to to nausea, pain, and fatigue- RN aware.
--- NOTE | 2020-04-09 17:31 | WPDNEURCNPN ---
Assessment and Plan Assessment and plan (1) Seizure disorder: Code(s): G40.909 - Epilepsy, unspecified, not intractable, without status epilepticus Status: Acute (2) Rhabdomyolysis: Qualifiers: Rhabdomyolysis type: non-traumatic Qualified Code(s): M62.82 - Rhabdomyolysis Code(s): M62.82 - Rhabdomyolysis Status: Acute (3) Acute dehydration: Code(s): E86.0 - Dehydration Status: Acute (4) Alcohol dependence: Qualifiers: Substance use status: unspecified alcohol-induced disorder Qualified Code(s): F10.29 - Alcohol dependence with unspecified alcohol-induced disorder Code(s): F10.20 - Alcohol dependence, uncomplicated Status: Acute (5) Anxiety: Code(s): F41.9 - Anxiety disorder, unspecified Status: Acute (6) Back pain with history of spinal surgery: Code(s): M54.9 - Dorsalgia, unspecified Status: Acute (7) Scalp laceration: Qualifiers: Encounter type: initial encounter Qualified Code(s): S01.01XA - Laceration without foreign body of scalp, initial encounter Code(s): S01.01XA - Laceration without foreign body of scalp, initial encounter Status: Acute Additional Plan patient needs counseling for her chronic alcoholism and her acceptance that no matter how much medication we give her for her seizures if she continues to drink she will have reoccurrence of the seizure and the patient should not be driving at all. Consult date: 04/09/20 Time Seen: 17:00 HPI: Carolyn Royal is a 64 year old female who has been admitted to this hospital many times in the past and has had the workup for her but clearly is related seizures to alcohol and possibly being epileptic also with repeated seizure which she dates back to about 10 years almost every time she has seizure is in the background of having and about of drinking which she is really hard to except in any event the patient did not have any further seizure her Keppra has been increased to 6000 milligram per day which I think is way being larger does I will probably cut back to total of 4000 milligram per day and would need this patient to have counseling about her alcohol use she denies any headache nausea vomiting chest pain shortness of breath fever chills sore throat Review of Systems Review of Systems: All systems reviewed & are unremarkable except as noted in HPI and below PMFSH Past Medical History Medical History Anxiety Back pain with history of spinal surgery Miller rods placed due to scoliosis Colon cancer Depression Fracture of right ankle, lateral malleolus Nondisplaced comminuted fracture lateral malleolus 11/13/2019 Frequent falls GERD (gastroesophageal reflux disease) GI bleed With history of gastric and duodenal ulcer 09/2018 Hepatitis C Has a teenage History of colon cancer Status post sigmoid resection 05/05/2017 Hx of seizure disorder With normal EEG and MRI demonstrating arachnoid cyst in the left temporal lobe with chronic small-vessel ischemic changes in November 2016 IBS (irritable bowel syndrome) 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 Surgical History Surgical History History of bilateral carpal tunnel release History of bone graft from LLE to repair bilateral wrist fractures History of colon resection sigmoid due to colon cancer April 2017 History of cystoscopy with stents March 2017 Hx of section Port-A-Cath in place Scoliosis deformity of spine With surgical repair Wrist fracture, bilateral Requiring bone graft Family History Family History Mother Diabetes mellitus Hypertension COPD (chronic obstructive pulmonary disease) Father MVA (motor vehicle accident) Alcohol abuse Sibling Drug overdose Social His
[2020-04-09] MEDS: levETIRAcetam 500 MG TABLET 2000 MG PO (21:03)
[2020-04-10] VITALS (9 sets, daily range): BP systolic 133–158; BP diastolic 86–98; PULSE 91–120; RESP 16–20; TEMP 36.3–36.8; O2SAT 94–96
[2020-04-10] MEDS: LORAZEPAM INJ 2 MG/ML VIAL 1 MG IV PUSH ×2 (03:12→07:28)
[2020-04-10 06:31] LABS: Hematocrit 37.1 % (37.0-47.0); Hemoglobin 12.1 g/dL (12.0-15.0); Mean Corpuscular HGB Conc 32.6 g/dl (32-36); Mean Corpuscular Hemoglobin 32.3 pg (26-34); Mean Corpuscular Volume 98.9 fl (80-100); Mean Platelet Volume 9.4 fl (7.4-10.4); Platelet Count Result 268 k/mm3 (150-375); Red Blood Count 3.75 M/mm3 (4.2-5.4); Red Cell Distribution Width 15.1 % (11.5-14.5); White Blood Count 6.7 K/mm3 (4.5-10.0)
[2020-04-10 07:02] LABS: Creatine Kinase 229 U/L (30-135)
[2020-04-10] MEDS: levETIRAcetam 500 MG TABLET 2000 MG PO ×2 (08:11→21:16)
[2020-04-10] MEDS: FOLIC ACID 1 MG TABLET PO (08:11)
[2020-04-10] MEDS: THIAMINE HCL 100 MG TABLET PO (08:11)
[2020-04-10] MEDS: MULTIVITAMINS THERAPEUTIC TAB (*BKC) 1 TABLET PO (08:11)
[2020-04-10] MEDS: LIDOCAINE 5% PATCH 1 PATCH TRANSDERM (08:11)
[2020-04-10 08:16] LABS: Folic Acid 6.8 ng/mL (2.76->20)
[2020-04-10] MEDS: LACTATED RINGERS 1,000 ML 100 ML IV CONT (08:25)
--- NOTE | 2020-04-10 14:06 | PM.IMPN ---
Progress Note: A&P Assessment and Plan (1) Rhabdomyolysis: Qualifiers: Rhabdomyolysis type: non-traumatic Qualified Code(s): M62.82 - Rhabdomyolysis Code(s): M62.82 - Rhabdomyolysis Status: Acute Assessment and Plan: -----likely causing her acute pain on top of her chronic pain. Continue home pain medications as she takes oxycodone. CK improved today. Likely due to recent seizure but cannot rule out elevated CK due to Keppra medication itself, especially if she is utilizing a higher dose than recommended. (2) Seizure disorder: Code(s): G40.909 - Epilepsy, unspecified, not intractable, without status epilepticus Status: Acute Assessment and Plan: -----Complicated by the patient's history of alcohol use. She denies heavy alcohol use but the fact that she has had multiple visits were alcohol level is been greater than 300 somewhat makes this claim less likely. She has had no seizures since being here but for unclear reasons the nursing staff was giving ativan routinely (instead of for CIWA >8) so cannot fully assess for resolution of breakthrough seizures. I have spoke to neurology who recommends we keep her again overnight and not give her ativan and make sure she doesn't have any breakthrough seizures. [facility] her script that was sent over 02/15/20 was for 1000mg in the morning and 1500HS. Will continue keprra 2000mg BID per neurology at this time. The patient states that her primary care physician recently increased her Keppra (within the last 2 weeks) from 1500 mg b.i.d. up to 3000 mg b.i.d. The pharmacy above does not have that script and I called her pcp Carolyn alvarengaple times and just get a busy signal. Neurology has been consulted to help further management the patient's seizure medications. Patient states that she had an EEG recently that was normal. Her seizures started after her (pseudoseizures?) The importance of following up with Neurology on discharge has been discussed with the patient in great detail. (3) Alcohol dependence: Qualifiers: Substance use status: unspecified alcohol-induced disorder Qualified Code(s): F10.29 - Alcohol dependence with unspecified alcohol-induced disorder Code(s): F10.20 - Alcohol dependence, uncomplicated Status: Acute Assessment and Plan: -----Continue CIWA. Last score 2. Continue multivitamin and folic acid supplementation as well as oral time and supplementation today. Subjective Date/time seen: 04/10/20 14:06 Interval history: Pt is a 64-year-old female here for diffuse body pain and possible seizure. Patient was seen today and still having pain in her right shoulder and her left foot. She says that she has been taking the Ativan every 4 hours because it helps relax her and helps with her pain. She has not had any further seizure activity or hallucinations. Pt denies nausea, vomiting, fevers, chills, constipation, diarrhea, chest pain, sob, or abdominal pain. Patient states that she woke up Friday morning and felt like she was going to . She said she had pain from her head to her toes and felt very achy. She also been noticed that she had a black eye on her left eye which was not there before. She figured she had a seizure and carried on with the rest the day. She went and saw her neighbors and had a couple glasses of wine and then decided it was probably best to come the emergency room because she was having pain. She did not have anybody witness the seizure and she does not remember it. She has no numbness, tingling or weakness to any part of her body. Her last seizure was a couple weeks ago and she says that her Keppra was increased to 3000 mg b.i.d. by her primary care physician Carolyn Ibarra. She denies constipation, shortness of breath, or chest pain. She had 1 episode of soft diarrhea Friday night and another e
[2020-04-11] VITALS: PULSE 86
[2020-04-11 06:00] VITALS: BP 130/72; PULSE 86; RESP 20; TEMP 36.8; O2SAT 93
[2020-04-11 06:32] LABS: Hematocrit 41.1 % (37.0-47.0); Hemoglobin 12.9 g/dL (12.0-15.0); Mean Corpuscular HGB Conc 31.4 g/dl (32-36); Mean Corpuscular Hemoglobin 32.6 pg (26-34); Mean Corpuscular Volume 103.8 fl (80-100); Platelet Count Result 160 k/mm3 (150-375); Red Blood Count 3.96 M/mm3 (4.2-5.4); Red Cell Distribution Width 14.8 % (11.5-14.5); White Blood Count 6.8 K/mm3 (4.5-10.0)
[2020-04-11 06:47] LABS: Blood Urea Nitrogen 6 mg/dL (7-17); Calcium 9.1 mg/dL (8.4-10.2); Carbon Dioxide 22 mmol/L (22-30); Chloride 103 mmol/L (98-107); Estimated CRCL calculation 106 ml/min; Estimated Glomerular Filt Rate > 60; Glucose 102 mg/dL (65-105); Sodium 132 mmol/L (137-145)
--- NOTE | 2020-04-11 07:56 | PCOTNOTE ---
OT evaluation attempted this AM. Patient declining therapy at this time due to pain and having just gotten out of bed and to bathroom with nursing. Will attempt OT Evaluation at later time.
[2020-04-11 08:00] VITALS: PULSE 82
--- NOTE | 2020-04-11 09:24 | PCOTNOTE ---
Pt refused OT evaluation for the second time today d/t being in too much pain. Will attempt at a later time.
[2020-04-11] MEDS: levETIRAcetam 500 MG TABLET 2000 MG PO ×2 (09:30→09:46)
[2020-04-11] MEDS: MULTIVITAMINS THERAPEUTIC TAB (*BKC) 1 TABLET PO (09:46)
[2020-04-11] MEDS: LIDOCAINE 5% PATCH 1 PATCH TRANSDERM (09:46)
[2020-04-11] MEDS: FOLIC ACID 1 MG TABLET PO (09:46)
[2020-04-11] MEDS: THIAMINE HCL 100 MG TABLET PO (09:46)
--- NOTE | 2020-04-11 09:48 | WPDNEUROPN ---
Progress Note: A&P Assessment and Plan (1) Seizure disorder: Code(s): G40.909 - Epilepsy, unspecified, not intractable, without status epilepticus Status: Acute (2) Rhabdomyolysis: Qualifiers: Rhabdomyolysis type: non-traumatic Qualified Code(s): M62.82 - Rhabdomyolysis Code(s): M62.82 - Rhabdomyolysis Status: Acute (3) Acute dehydration: Code(s): E86.0 - Dehydration Status: Acute (4) Alcohol dependence: Qualifiers: Substance use status: unspecified alcohol-induced disorder Qualified Code(s): F10.29 - Alcohol dependence with unspecified alcohol-induced disorder Code(s): F10.20 - Alcohol dependence, uncomplicated Status: Acute (5) Anxiety: Code(s): F41.9 - Anxiety disorder, unspecified Status: Acute (6) Back pain with history of spinal surgery: Code(s): M54.9 - Dorsalgia, unspecified Status: Acute (7) Scalp laceration: Qualifiers: Encounter type: initial encounter Qualified Code(s): S01.01XA - Laceration without foreign body of scalp, initial encounter Code(s): S01.01XA - Laceration without foreign body of scalp, initial encounter Status: Acute (8) Fracture of right ankle, lateral malleolus: Qualifiers: Encounter type: initial encounter Fracture type: closed Fracture alignment: nondisplaced Qualified Code(s): S82.64XA - Nondisplaced fracture of lateral malleolus of right fibula, initial encounter for closed fracture Code(s): S82.61XA - Displaced fracture of lateral malleolus of right fibula, initial encounter for closed fracture Status: Acute (9) Generalized seizure: Code(s): R56.9 - Unspecified convulsions Status: Acute Additional Plan alcohol related SD with possibility of underlying SD will decrease keppra,c/opain because of clavicular fracture Review of Systems Review of Systems: All systems reviewed & are unremarkable except as noted in HPI and below Exam Const: General: cooperative, alert, awake and anxious Nutritional Appearance: average body habitus Orientation/consciousness: oriented to person, oriented to place and oriented to time Limitations: no limitations HENMT: Head: normal to inspection Ears: hearing grossly normal bilaterally General nose exam: Normal external nose present and No nasal discharge present Face and sinus: ecchymosis and erythema Mouth: Yes Normal oral and palatal mucosa present Eyes: General: appearance normal, both eyes and all related structures Visual Newberry: normal visual newberry by confrontation Alignment and Position: alignment normal Periorbital: periorbital findings abnormal Eyelids: eyelids normal Conjunctivae: conjunctivae normal Sclera: sclerae normal Cornea: corneas normal Pupils: Equal, round and reactive pupils present EOM: EOMs intact bilaterally Direct Ophthalmoscopy: normal light reflex Neck: Neck: full ROM and other (c/o pain) Carotids: normal carotid upstroke Lymphatic: no lymphadenopathy noted Chest: Chest palpation & inspection: deferred Resp: Effort & Inspection: normal respiratory effort and able to speak in complete sentences Cardio: Rate: regular rate Rhythm: regular rhythm GI: Auscultation: normal bowel sounds Skin: General skin exam: ecchymosis Neuro: General: patient oriented x3, moves all extremities and CN's II-XI intact bilaterally Cognition (Neuro): normal cognition Speech: normal speech Motor exam (neuro): 5/5 motor strength present throughout Deep tendon reflexes (DTR's): Right triceps reflex intensity grade: 1+, Left triceps reflex intensity grade: 1+, Rt Biceps (C5, C6): 1+, Left biceps reflex intensity grade: 1+, Right brachioradialis reflex intensity grade: 1+, Left brachioradialis reflex intensity grade: 1+, Right patellar reflex intensity grade: 1+, Left patellar reflex intensity grade: 1+, Right ankle reflex intensity grade: 1+ and Left ankle reflex intensity grade: 1
[2020-04-11 12:00] VITALS: PULSE 78
--- NOTE | 2020-04-11 14:33 | PM.DS ---
DS: Admitting Diagnosis Admitting Diagnosis Admitting Diagnosis: Epilepsy, unspecified, not intractable, without status epilepticus DS: Discharge Diagnosis Discharge Diagnosis (1) Rhabdomyolysis: Qualifiers: Rhabdomyolysis type: non-traumatic Qualified Code(s): M62.82 - Rhabdomyolysis Code(s): M62.82 - Rhabdomyolysis Status: Acute Assessment and Plan: Date of Service 04/11/20: Ms. Royal is a 64yo F with history of alcohol use disorder, seizure disorder and chronic back pain who presented to the ED for evaluation of generalized weakness after reportedly having a seizure 2 days prior to arrival. Her seizures do seem to be in the setting of alcohol use although she may additionally have an underlying component of seizure disorder. She was evaluated by neurology. Patient reports she had been taking 3000mg of Keppra BID, although it appears she was prescribed 1500mg BID. Dr Chun recommends keeping Keppra dose at 2,000mg BID, no further seizure activity here. CK was elevated on arrival to 800s and improved to 200s prior to discharge. She mentioned she may be interested in speaking with PCP regarding starting the application process to assisted living as she feels she has trouble caring for herself at home. She did well with PT/OT and walked 150' standby assistance with PT. She was hemodynamically stable for discharge 04/11/20 with instructions to follow up with PCP and Dr Chun. She is noted to have a R clavicle fracture, subacute. Discussed the importance of wearing the sling to promote healing. Follow up with PCP and consider repeat imaging eventually to ensure healing. Consultations: -- Neurology - Dr Chun (2) Seizure disorder: Code(s): G40.909 - Epilepsy, unspecified, not intractable, without status epilepticus Status: Acute Assessment and Plan: Continue Keppra 2000mg BID per neurology recommendations. Patient states she had an EEG recently that was normal. She states her seizures started after her (pseudoseizures?) Continue to follow with Dr Chun after discharge. (3) Alcohol dependence: Qualifiers: Substance use status: unspecified alcohol-induced disorder Qualified Code(s): F10.29 - Alcohol dependence with unspecified alcohol-induced disorder Code(s): F10.20 - Alcohol dependence, uncomplicated Status: Acute Assessment and Plan: Monitored with CIWA protocol and was treated with thiamine and folic acid. No evidence of acute withdrawal. DS: Summary Time Spent with Patient Time attestation: Total time spent providing and/or coordinating discharge services: 40 minutes Exam Narrative: Exam Narrative: Last Vital Signs Temp 98.2 F 04/11/20 06:00 Pulse 78 04/11/20 12:00 Resp 20 04/11/20 06:00 BP 130/72 04/11/20 06:00 Pulse Ox 93 04/11/20 06:00 General: Well developed well nourished patient resting in bed in [facility] HEENT: normocephalic, no pain to the neck. Left eye had some ecchymosis underneath. No issues with ocular movements Neck: supple Neuro: Alert and oriented x4. Equal strength the upper lower extremities 5/5. Cranial nerves 2-12 intact. CV:Rate and rhythm regular. Resp:Clear to auscultation throughout. Abd: Soft, non distended. No pain to palpation. Positive bowel sounds Extremities: No swelling, erythema, or pain to palpation. DS: Data Data Completed and Pending Labs on day of discharge: Labs from last 24 hours 04/11/20 04/11/20 05:56 05:56 WBC 6.8 RBC 3.96 L Hgb 12.9 Hct 41.1 MCV 103.8 H MCH 32.6 MCHC 31.4 L RDW 14.8 H Plt Count 160 MPV 11.0 H Sodium 132 L Potassium 4.0 Chloride 103 Carbon Dioxid
[2020-04-11 23:15] LABS: Levetiracetam Keppra 34.6 mcg/mL (12.0-46.0)
== END 2020-04-11 15:04 | disposition home or self-care (01) | DRG 101 ==
LOC: ANHED 20:44 → ANH3MEDSUR 04-09 01:26
PROVIDERS: Physician Assistant; Admitting Provider Internal Medicine; Emergency Provider Emergency Medicine; PCP Family Medicine; Visit Provider Internal Medicine
DX: G40.909 Epilepsy, unspecified, not intractable, without status epilepticus (principal); M62.82 Rhabdomyolysis; F10.29 Alcohol dependence with unspecified alcohol-induced disorder; G40.89 Other seizures; S42.011A Anterior displaced fracture of sternal end of right clavicle, initial encounter for closed fracture; W19.XXXA Unspecified fall, initial encounter; E86.0 Dehydration; F17.210 Nicotine dependence, cigarettes, uncomplicated; G62.0 Drug-induced polyneuropathy; T45.1X5A Adverse effect of antineoplastic and immunosuppressive drugs, initial encounter; K58.9 Irritable bowel syndrome, unspecified; K21.9 Gastro-esophageal reflux disease without esophagitis; F32.9 Major depressive disorder, single episode, unspecified; F41.9 Anxiety disorder, unspecified; M54.9 Dorsalgia, unspecified; Z86.19 Personal history of other infectious and parasitic diseases; Z85.038 Personal history of other malignant neoplasm of large intestine
CPT/HCPCS: 36415; 70450; 71046; 73000; 73030; 80048; 80053; 80177; 80307; 81001; 82550; 82607; 82746; 83605; 84443; 85025; 85027; 85610; 85730; 93005; 96361; 96374; 96375; 96376; 97161; 99285; A4565; A9270; G0378; J0131; J2060; J3411; J7030; J7120

== ENCOUNTER 2020-05-01 10:28 | Emergency (ER) | payer MEDICARE, MEDICAID, SELFPAY ==
--- NOTE | ~2020-05-01 | XR_ITS ---
EXAMINATION: XR chest 1V DATE: 05/01/2020 12:29 INDICATION: Fall TECHNIQUE: frontal view of the chest was obtained. COMPARISON: Chest radiograph dated 04/09/2020 FINDINGS: The lungs remain clear with no focal airspace opacities, pulmonary edema, pleural effusion or pneumot horax. The cardiomediastinal silhouette is normal. There is some callus formation about a healing fra cture at the medial right clavicle. S-shaped thoracolumbar scoliosis with instrumented posterior spin al fusion with bilateral vertical esdras and pedicle screw fixation extending from the lower thoracic th rough the mid lumbar spine and beyond the inferior margin of the [id number]. Vertebroplasty is at a couple levels in the lower thoracic spine. Plate and screw fixation for lower cervical anterior spi nal fusion. Right subclavian central venous port catheter with distal tip near the superior cavoatria l junction. IMPRESSION: 1. No acute cardiopulmonary disease. Reviewed, dictated and finalized at location A.
--- NOTE | ~2020-05-01 | XR_ITS ---
EXAMINATION: XR pelvis 1-2V DATE: 05/01/2020 12:29 INDICATION: Pelvis injury. TECHNIQUE: A single anteroposterior view of the pelvis was obtained. COMPARISON: Pelvis radiograph 10/22/2018 FINDINGS: There is lumbar levoscoliosis. There are changes of posterior fusion procedure involving tayler mbar spine and the sacrum and iliac bones. There are changes of anterior fusion procedure in lumbar s pine. No acute fracture. The hip joint spaces are normal. A staple line overlies the lower abdomen. IMPRESSION: 1. No acute fracture. Reviewed, dictated and finalized at location A. IMPRESSION: 1. No acute fracture.
--- NOTE | ~2020-05-01 | XR_ITS ---
EXAMINATION: 1. XR humerus LT 2. XR shoulder LT min 2V DATE: 05/01/2020 12:29 INDICATION: Left arm pain. Fall. TECHNIQUE: 3 views of left humerus on 3 radiographs and 4 views of left shoulder were obtained. COMPARISON: None. FINDINGS: LEFT SHOULDER: There is a comminuted fracture of proximal left humeral diaphysis. The main distal fra cture fragment demonstrates 6 mm medial displacement, greater than one shaft width posterior displace ment, and variable angulation. There is mild osteoarthritis of glenohumeral joint and acromial clavic ular joint. There is mild calcific tendinitis of the rotator cuff. There are changes of anterior fusi on procedure in cervical spine. LEFT HUMERUS: Again seen is a comminuted fracture of proximal left humeral diaphysis. There is mild osteoarthritis of glenohumeral joint and acromioclavicular joint. There are changes of posterior fusi on procedure in thoracolumbar spine. IMPRESSION: 1. Acute comminuted fracture of proximal left humeral diaphysis. Reviewed, dictated and finalized at location A. IMPRESSION: 1. Acute comminuted fracture of proximal left humeral diaphysis.
--- NOTE | ~2020-05-01 | CT_ITS ---
EXAMINATION: CT cervical spine wo con DATE: 05/01/2020 12:09 INDICATION: Fall. Left arm pain. TECHNIQUE: Computed tomography (CT) of the cervical spine was performed without intravenous contrast. Automated exposure control and iterative reconstruction technique were employed. The dose-length pro duct was 457.31 mGy-cm. COMPARISON: CT cervical spine 03/28/2020 FINDINGS: There is 12 degrees levoscoliosis of cervical spine. There is 2 mm anterolisthesis of C3 on C4. There is kyphosis of cervical spine. There are changes of anterior fusion procedure from C5 to C 7 with healed interbody bone graft and anterior plate and screws. There are chronic compression fract ures of T2 and T3. There is mildly decreased disc height at C4-C5 severely decreased disc height at C 7-T1. There are healing fractures of the sternum and medial right clavicle. The following disc levels are specifically discussed: C2-C3: There is no uncovertebral joint osteoarthritis. There is severe left facet joint osteoarthriti s. There is mild left neural foraminal stenosis. There is no central canal stenosis. C3-C4: There is no uncovertebral joint osteoarthritis. There is severe bilateral facet joint osteoart hritis. There is mild bilateral neural foraminal stenosis. There is no central canal stenosis. C4-C5: There is mild bilateral uncovertebral joint osteoarthritis. There is severe right and mild lef t facet joint osteoarthritis. There is mild right neural foraminal stenosis. There is mild central ca nal stenosis. C5-C6: There is no uncovertebral joint osteoarthritis. There is mild right facet joint osteoarthritis . There is no neural foraminal stenosis. There is mild central canal stenosis. C6-C7: There is mild left uncovertebral joint hypertrophy. There is mild right facet joint osteoarthr itis. There is mild left neural foraminal stenosis. There is mild central canal stenosis. C7-T1: There is severe bilateral uncovertebral joint osteoarthritis. There is mild bilateral facet adalberto int osteoarthritis. There is mild bilateral neural foraminal stenosis. There is no central canal sten osis. IMPRESSION: 1. Healing subacute fractures of the sternum and right clavicle. 2. Severe cervical spondylosis. 3. Anterior fusion procedure from C5 to C7. 4. Cervical kyphosis and levoscoliosis. Reviewed, dictated and finalized at location A.
--- NOTE | ~2020-05-01 | CT_ITS ---
EXAMINATION: CT brain wo con DATE: 05/01/2020 12:09 INDICATION: Fall. Seizures. TECHNIQUE: Computed tomography (CT) of the head was performed without intravenous contrast. The mA wa s adjusted according to patient size. Iterative reconstruction technique was employed. The dose-lengt h product was 605.33 mGy-cm. COMPARISON: Head CT 04/08/2020 FINDINGS: There are scattered areas of low attenuation in the cerebral white matter. There is no intr acranial hemorrhage, acute infarction, or abnormal intracranial mass lesion. The ventricles are marge l in size. There is mild mucosal thickening in the paranasal sinuses. The orbits are normal. The mast oid air cells are normal. IMPRESSION: 1. Stable moderate nonspecific cerebral white matter disease, which likely represents chronic small v essel ischemic disease. Reviewed, dictated and finalized at location A. IMPRESSION: 1. Stable moderate nonspecific cerebral white matter disease, which likely repr esents chronic small vessel ischemic disease.
[2020-05-01 10:39] VITALS: BP 135/96; PULSE 125; RESP 13; TEMP 36.9; O2SAT 94
--- NOTE | 2020-05-01 10:56 | ECG_ITS ---
Measurements Intervals [place] Rate: 126 P: 63 TN: 121 QRS: 59 QRSD: 85 T: 70 QT: 299 QTc: 433 Interpretive Statements SINUS TACHYCARDIA LOW QRS VOLTAGE IN PRECORDIAL LEADS CANNOT RULE OUT SEPTAL INFARCT, AGE INDETERMINATE BORDERLINE ST-T WAVE ABNORMALITY- HIGH LATERAL LEADS BASELINE ARTIFACT- I, II, AVR, AVL ABNORMAL ECG Electronically Signed On 05-01-2020 11:45:20 CDT by Jules Workman D.O.
[2020-05-01] MEDS: LACTATED RINGERS 1,000 ML 999 ML IV CONT (11:04)
[2020-05-01] MEDS: MORPHINE SULFATE 4 MG/ML INJ IV PUSH ×4 (11:05→17:37)
[2020-05-01] MEDS: FAMOTIDINE 20 MG/2 ML VIAL IV PUSH (11:06)
[2020-05-01 11:24] VITALS: BP 142/97; PULSE 128; RESP 17; O2SAT 97
[2020-05-01 11:24] LABS: Alveolar/Arterial O2 Gradient 41.1 mmHg; Base Excess ABG -1.2 mEq/l (+/-2.0); Carboxyhemoglobin 1.1 % THb (0-2.0); Fractional Inspired Oxygen 21 %; HCO3 ABG 21.7 mEq/l (22.0-26.0); Methemoglobin ABG 0.2 %THb (0-1.5); Oxygen Content ABG 18.9 %vol (16.0-22.0); Oxygen Saturation ABG 95.2 % (95.0-100.0); Oxyhemoglobin 92.5 % THb (90.0-100.0); PCO2 ABG 31.6 mmHg (35.0-45.0); PO2 ABG 70.8 mmHg (80.0-100.0); PO2 FiO2 Ratio Arterial Blood 3.37 %; Reduced Hemoglobin 6.2 %THb (0-5.0); Total Hemoglobin 14.5 g/dL (12.0-18.0); pH ABG 7.455 (7.350-7.450)
[2020-05-01 11:25] LABS: Device ROOM AIR; Site Drawn RIGHT BRACHIAL
--- NOTE | 2020-05-01 11:35 | ED.GENADULT ---
HPI - General Adult General Chief complaint: Extremity Injury, Upper <Howard Trinh PA-C - Last Filed: 05/01/20 15:04> Stated complaint: Fall,left arm pain <Howard Trinh PA-C - Last Filed: 05/01/20 15:04> Time Seen by Provider: 05/01/20 10:43 <Howard Trinh PA-C - Last Filed: 05/01/20 15:04> Source: patient and old records reviewed <Howard Trinh PA-C - Last Filed: 05/01/20 15:04> Mode of arrival: ambulatory <DAVID Guthrie Last Filed: 05/01/20 15:04> Limitations: no limitations <Howard Trinh PA-C - Last Filed: 05/01/20 15:04> History of Present Illness HPI narrative: Patient is a 64-year-old female who presents per EMS from home status post having had a likely seizure last night noting that she did drink some wine patient notes history of seizures having had recent seizure after which she fractured her right clavicle patient notes from this fall she injured her left humerus where she has bruising swelling and moderate tenderness. Patient denies other injuries or complaints and notes that she had felt fine prior to the fall patient with history of COPD seizures frequent falls. Patient notes she lives at home by herself <Howard Trinh PA-C - Last Filed: 05/01/20 15:04> Related Data Home medications: Home Medications Medication Instructions Recorded Confirmed ibuprofen 400 mg PO TID PRN 12/20/19 04/09/20 <Howard Trinh PA-C - Last Filed: 05/01/20 15:04> Allergies/adverse reactions: Allergies Allergy/AdvReac Type Severity Reaction Status Date / Time Sulfa (Sulfonamide Allergy Unknown Unknown Verified 04/08/20 20:22 Antibiotics) <Howard Trinh PA-C - Last Filed: 05/01/20 15:04> Review of Systems Review of Systems: All systems reviewed & are unremarkable except as noted in HPI and below <Howard Trinh PA-C - Last Filed: 05/01/20 15:04> PMFSH Past Medical History Medical History: Medical History Anxiety Back pain with history of spinal surgery Miller rods placed due to scoliosis Colon cancer Depression Fracture of right ankle, lateral malleolus Nondisplaced comminuted fracture lateral malleolus 11/13/2019 Frequent falls GERD (gastroesophageal reflux disease) GI bleed With history of gastric and duodenal ulcer 09/2018 Hepatitis C Has a teenage History of colon cancer Status post sigmoid resection 05/05/2017 Hx of seizure disorder With normal EEG and MRI demonstrating arachnoid cyst in the left temporal lobe with chronic small-vessel ischemic changes in November 2016 IBS (irritable bowel syndrome) 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 <Howard Trinh PA-C - Last Filed: 05/01/20 15:04> Surgical History Surgical History: Surgical History History of bilateral carpal tunnel release History of bone graft from LLE to repair bilateral wrist fractures History of colon resection sigmoid due to colon cancer April 2017 History of cystoscopy with stents March 2017 Hx of section Port-A-Cath in place Scoliosis deformity of spine With surgical repair Wrist fracture, bilateral Requiring bone graft <Howard Trinh PA-C - Last Filed: 05/01/20 15:04> Social History Social History: Social History Social History: Primary care physician: Dr. Carolyn Ibarra Code status: Full code per EMR Smoking packs per day: 1 Smoking cigarettes per day: 20.0 Years smoked: 47 Smoking pack-years: 47.00 Smoking status: Current every day smoker Tobacco type: cigarettes Second hand tobacco smoke exposure: Yes Alcohol intake: current Drinks per week: 1 Substance use: unknown Substance use type: does not use Additional living arrangements comments: Pt lives in an apartment
[2020-05-01 11:37] LABS: Glucose Point of Care 111 (65-105)
[2020-05-01] MEDS: levETIRAcetam 1000MG/NACL100ML 1,000 MG/100 ML BAG 400 MG IVPB (11:43)
[2020-05-01 11:48] LABS: Basophils Percent Auto 0.3 % (0.2-1.2); Hematocrit 43.3 % (37.0-47.0); Immature Granulocyte Absolute 0.08 K/mm3 (0.00-0.031); Immature Granulocyte Percent A 0.8 % (0-0.5); Lymphocytes Absolute Auto 1.54 K/mm3 (0.9-3.2); Lymphocytes Percent Auto 15.7 % (18.3-44.2); Mean Corpuscular HGB Conc 32.3 g/dl (32-36); Mean Corpuscular Hemoglobin 32.3 pg (26-34); Mean Corpuscular Volume 99.8 fl (80-100); Mean Platelet Volume 9.3 fl (7.4-10.4); Monocytes Absolute Auto 1.3 K/mm3 (0.1-0.6); Monocytes Percent Auto 13.2 % (2.6-8.5); Neutrophils Absolute Auto 6.9 K/mm3 (1.3-6.7); Platelet Count Result 310 k/mm3 (150-375); Red Blood Count 4.34 M/mm3 (4.2-5.4); Red Cell Distribution Width 15.3 % (11.5-14.5); White Blood Count 9.8 K/mm3 (4.5-10.0)
[2020-05-01 11:58] LABS: INR 0.9; Prothrombin Time 12.1 Seconds (11.1-14.7)
[2020-05-01 11:59] LABS: Partial Thromboplastin Time 24.1 SECONDS (22.3-36.8)
[2020-05-01 12:01] LABS: Alanine Aminotransferase 90 U/L (4-35); Albumin Level 4.1 g/dL (3.5-5.1); Alkaline Phosphatase 272 U/L (38-126); Aspartate Amino Transferase 147 U/L (14-36); Bilirubin,Total 0.5 mg/dL (0.2-1.3); Blood Urea Nitrogen 7 mg/dL (7-17); Calcium 9.2 mg/dL (8.4-10.2); Carbon Dioxide 22 mmol/L (22-30); Chloride 106 mmol/L (98-107); Creatine Kinase 1235 U/L (30-135); Estimated CRCL calculation 134 ml/min; Estimated Glomerular Filt Rate > 60; Glucose 106 mg/dL (65-105); Lipase 46 U/L (23-300); Potassium 4.6 mmol/L (3.4-5.0); Sodium 138 mmol/L (137-145)
[2020-05-01 12:12] LABS: Troponin I < 0.012 ng/mL (0.000-0.034)
--- NOTE | 2020-05-01 13:07 | WC.ED.TRAUMA ---
HPI - Trauma General Chief Complaint: Extremity Injury, Upper Stated Complaint: Fall,left arm pain Time Seen by Provider: 05/01/20 10:43 Source: patient and old records reviewed Mode of arrival: ambulatory Limitations: no limitations Related Data Home Medications Medication Instructions Recorded Confirmed ibuprofen 400 mg PO TID PRN 12/20/19 04/09/20 Allergies Allergy/AdvReac Type Severity Reaction Status Date / Time Sulfa (Sulfonamide Allergy Unknown Unknown Verified 04/08/20 20:22 Antibiotics) [facility] Past Medical History Medical History Anxiety Back pain with history of spinal surgery Miller rods placed due to scoliosis Colon cancer Depression Fracture of right ankle, lateral malleolus Nondisplaced comminuted fracture lateral malleolus 11/13/2019 Frequent falls GERD (gastroesophageal reflux disease) GI bleed With history of gastric and duodenal ulcer 09/2018 Hepatitis C Has a teenage History of colon cancer Status post sigmoid resection 05/05/2017 Hx of seizure disorder With normal EEG and MRI demonstrating arachnoid cyst in the left temporal lobe with chronic small-vessel ischemic changes in November 2016 IBS (irritable bowel syndrome) 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 Surgical History Surgical History History of bilateral carpal tunnel release History of bone graft from LLE to repair bilateral wrist fractures History of colon resection sigmoid due to colon cancer April 2017 History of cystoscopy with stents March 2017 Hx of section Port-A-Cath in place Scoliosis deformity of spine With surgical repair Wrist fracture, bilateral Requiring bone graft Social History Social History Social History: Primary care physician: Dr. Carolyn Ibarra Code status: Full code per EMR Smoking packs per day: 1 Smoking cigarettes per day: 20.0 Years smoked: 47 Smoking pack-years: 47.00 Smoking status: Current every day smoker Tobacco type: cigarettes Second hand tobacco smoke exposure: Yes Alcohol intake: current Drinks per week: 1 Substance use: unknown Substance use type: does not use Additional living arrangements comments: Pt lives in an apartment complex. Additional occupation/education comments: The patient reports that she is disabled due to her seizures. Gender identity (if verbalized by the patient): Female Spiritual care concerns: No Agree to blood products: Yes Course BUILDING CUSTODIAN/PA Physician Supervision Attestation for Howard Trinh at 1307. [id number] with the patient for 10 minutes. Smells of urine. Awake and pleasant. Complaining of left upper arm pain, which is a humerus fracture. She also has bruising on the right chest from previous fractures. She drinks alcohol and has seizures. She is already been given Keppra here. She is requesting some pain medicine for the broken arm. Vital Signs Vital signs: Vital Signs Temperature 98.5 F 05/01/20 10:39 Pulse Rate 125 H 05/01/20 10:39 Respiratory Rate 13 05/01/20 10:39 Blood Pressure 135/96 H 05/01/20 10:39 Pulse Oximetry 94 05/01/20 10:39 Temperature 98.5 F 05/01/20 10:39 Pulse Rate 115 H 05/01/20 15:22 Respiratory Rate 18 05/01/20 15:22 Blood Pressure 156/99 H 05/01/20 15:22 Pulse Oximetry 99 05/01/20 15:22 MDM - Trauma Medical Records Attestation: I reviewed the patient's medical records. Lab Data Attestation: I reviewed the patient's lab results. Result diagrams: 05/01/20 11:42 05/01/20 11:42 Labs: Lab Results 05/01/20 05/01/20 05/01/20 Range/Units 11:20 11:28 11:42 WBC 9.8 (4.5-10.0) K/mm3 RBC 4.34 (4.2-5.4) M/mm3 Hgb 14.0 (12.0-15.0) g/dL Hct 43.3 (37.0-47.0) % MCV 99.8 (80-100)
[2020-05-01 13:21] VITALS: BP 194/119; PULSE 122; RESP 18; O2SAT 99
--- NOTE | 2020-05-01 13:38 | PC.NURSE ---
Per pts request pts mother was called.
[2020-05-01 14:22] LABS: Add Urine Microscopic? YES; Appearance Urine Clear (Clear); Bilirubin Urine Negative (Negative); Blood Urine Negative (Negative); Color Urine Yellow (Yellow); Glucose Urine UA Negative (Negative); Ketones Urine 1+ mg/dL (Negative); Leukocyte Esterase Ur Negative LEU/UL (Negative); Mucus Urine Few /lpf; Nitrate Urine Negative (Negative); Protein Urine 1+ mg/dL (Negative); RBC Urine 0-2 /hpf (0-2); Specific Grav Ur 1.027 (1.001-1.035); Squamous Epithelial Cell Urine Few /hpf (Few); WBC Urine 0-3 /hpf
[2020-05-01 15:22] VITALS: BP 156/99; PULSE 115; RESP 18; O2SAT 99
[2020-05-01 17:53] VITALS: BP 147/112; PULSE 120; RESP 15; O2SAT 99
[2020-05-01 17:55] VITALS: BP 147/112
[2020-05-03 23:12] LABS: Levetiracetam Keppra 6.2 mcg/mL (12.0-46.0)
== END 2020-05-01 17:57 | disposition short-term general hospital (02) ==
PROVIDERS: Emergency Medicine Emergency Medical Services; Emergency Provider Emergency Medicine; PCP Family Medicine
DX: T79.6XXA Traumatic ischemia of muscle, initial encounter (principal); S49.092A Other physeal fracture of upper end of humerus, left arm, initial encounter for closed fracture; G40.909 Epilepsy, unspecified, not intractable, without status epilepticus; R94.5 Abnormal results of liver function studies; Z98.1 Arthrodesis status; M47.812 Spondylosis without myelopathy or radiculopathy, cervical region; R00.0 Tachycardia, unspecified; R94.31 Abnormal electrocardiogram [ECG] [EKG]; Z85.038 Personal history of other malignant neoplasm of large intestine; K21.9 Gastro-esophageal reflux disease without esophagitis; Z86.19 Personal history of other infectious and parasitic diseases; K58.9 Irritable bowel syndrome, unspecified; Z90.49 Acquired absence of other specified parts of digestive tract; F17.210 Nicotine dependence, cigarettes, uncomplicated; W18.39XA Other fall on same level, initial encounter
CPT/HCPCS: 36415; 36600; 70450; 71045; 72125; 72170; 73030; 73060; 80053; 80177; 81001; 82375; 82550; 82805; 82948; 83050; 83690; 84484; 85025; 85610; 85730; 93005; 96361; 96365; 96366; 96367; 96375; 96376; 99285; A4565; J0131; J1953; J2060; J2270; J3010; J3411; J3475; J7120; J7121

== ENCOUNTER 2020-07-05 20:05 | Emergency (ER) | payer MEDICARE, MEDICAID, SELFPAY ==
--- NOTE | ~2020-07-05 | CT_ITS ---
EXAMINATION: CT brain wo con EXAM DATE: 07/05/2020 23:23 INDICATION: Fall, seizures. Generalized headache. TECHNIQUE: Spiral CT of the head was performed without contrast. Axial, coronal and sagittal images were reviewed. The dose-length product (DLP) for this examination was 605.33 mGy-cm. The exposure w as tailored according to patient size, and iterative reconstruction (ASIR) was used as additional dos e reduction technique. Comparison is made to prior examination from 05/01/2020. FINDINGS: There is no acute intraparenchymal hemorrhage. No evidence of intraparenchymal brain mass lesion. No evidence of acute infarction. Please note that initial head CT has limited sensitivity f or small or acute infarctions. There is moderate periventricular and subcortical hypodensity, nonspec ific but probably related to small vessel ischemic disease. There is moderate prominence of the sul ci and ventricles related to cerebral atrophy. There is intracranial carotid arteriosclerosis. The re are no extra-axial collections. There is no mass effect or midline shift. The orbits are unremar kable. Soft tissue is unremarkable. The visualized sinuses and mastoid air cells are well aerated. IMPRESSION: 1. No acute intracranial findings. 2. Chronic age related findings. Reviewed, dictated and finalized at location A.
[2020-07-05 20:07] VITALS: BP 108/65; PULSE 100; RESP 16; TEMP 36.4; O2SAT 100
[2020-07-05 22:19] VITALS: PULSE 90; O2SAT 98
--- NOTE | 2020-07-05 23:01 | ED.AMS ---
HPI - Altered Mental Status General Chief Complaint: Seizure Stated Complaint: Seizure? from EMS Time Seen by Provider: 07/05/20 22:48 History of Present Illness HPI narrative: History limited due to intoxication and poor historian. She reports that she thinks she had a seizure because she was on the floor and does not know how she got there. She says she has had seizures before. She also reports that she thinks she broke her arm because it hurts. She can't decide which arm it is. And she says that she has had the pain for awhile. She is using it both arms without apparent difficulty. Related Data Home Medications Medication Instructions Recorded Confirmed ibuprofen 400 mg PO TID PRN 12/20/19 04/09/20 Allergies Allergy/AdvReac Type Severity Reaction Status Date / Time Sulfa (Sulfonamide Allergy Unknown Unknown Verified 07/14/20 20:58 Antibiotics) Review of Systems Review of Systems: ROS unobtainable: Yes unobtainable due to mental status PMFSH Past Medical History Medical History Anxiety Back pain with history of spinal surgery Miller rods placed due to scoliosis Colon cancer Depression Fracture of right ankle, lateral malleolus Nondisplaced comminuted fracture lateral malleolus 11/13/2019 Frequent falls GERD (gastroesophageal reflux disease) GI bleed With history of gastric and duodenal ulcer 09/2018 Hepatitis C Has a teenage History of colon cancer Status post sigmoid resection 05/05/2017 Hx of seizure disorder With normal EEG and MRI demonstrating arachnoid cyst in the left temporal lobe with chronic small-vessel ischemic changes in November 2016 IBS (irritable bowel syndrome) 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 Surgical History Surgical History History of bilateral carpal tunnel release History of bone graft from LLE to repair bilateral wrist fractures History of colon resection sigmoid due to colon cancer April 2017 History of cystoscopy with stents March 2017 Hx of section Port-A-Cath in place Scoliosis deformity of spine With surgical repair Wrist fracture, bilateral Requiring bone graft Family History Family History Mother Diabetes mellitus Hypertension COPD (chronic obstructive pulmonary disease) Father MVA (motor vehicle accident) Alcohol abuse Sibling Drug overdose Social History Social History Social History: Primary care physician: Dr. Carolyn Ibarra Code status: Full code per EMR Smoking packs per day: 1 Smoking cigarettes per day: 20.0 Years smoked: 47 Smoking pack-years: 47.00 Smoking status: Current every day smoker Tobacco type: cigarettes Second hand tobacco smoke exposure: Yes Alcohol intake: current Drinks per week: 1 Substance use: unknown Substance use type: does not use Additional living arrangements comments: Pt lives in an apartment complex. Additional occupation/education comments: The patient reports that she is disabled due to her seizures. Gender identity (if verbalized by the patient): Female Spiritual care concerns: No Agree to blood products: Yes Exam Const: General: no acute distress and alert Nutritional Appearance: well nourished Orientation/consciousness: patient oriented x3 HENMT: Head: normal to inspection Eyes: Pupils: Equal, round and reactive pupils present EOM: EOMs intact bilaterally Resp: Effort & Inspection: normal respiratory effort Auscultation: clear to auscultation bilaterally Cardio: Rate: regular rate Rhythm: regular rhythm GI: GI Palp: Yes Soft to palpation and No Tenderness to palpation present (GI) Skin: General skin exam: normal color Wounds: no wounds Neuro: General: p
[2020-07-05] MEDS: SODIUM CHLORIDE 0.9% IV 1,000 ML 999 ML IV CONT (23:41)
[2020-07-05 23:46] LABS: Basophils Absolute Auto 0.1 K/mm3 (0.0-0.1); Basophils Percent Auto 0.8 % (0.2-1.2); Eosinophils Absolute Auto 0.1 K/mm3 (0-0.3); Hematocrit 43.8 % (37.0-47.0); Hemoglobin 14.4 g/dL (12.0-15.0); Immature Granulocyte Absolute 0.09 K/mm3 (0.00-0.031); Lymphocytes Absolute Auto 3.92 K/mm3 (0.9-3.2); Lymphocytes Percent Auto 44.7 % (18.3-44.2); Mean Corpuscular HGB Conc 32.9 g/dl (32-36); Mean Corpuscular Hemoglobin 31.8 pg (26-34); Mean Corpuscular Volume 96.7 fl (80-100); Mean Platelet Volume 9.1 fl (7.4-10.4); Monocytes Absolute Auto 0.6 K/mm3 (0.1-0.6); Monocytes Percent Auto 6.4 % (2.6-8.5); Neutrophils Percent Auto 46.1 % (45.5-73.1); Platelet Count Result 326 k/mm3 (150-375); Red Blood Count 4.53 M/mm3 (4.2-5.4); Red Cell Distribution Width 13.9 % (11.5-14.5); White Blood Count 8.8 K/mm3 (4.5-10.0)
[2020-07-06] LABS: Ethanol 118 mg/dL (<10)
[2020-07-06 00:01] LABS: Alanine Aminotransferase 34 U/L (4-35); Alkaline Phosphatase 298 U/L (38-126); Anion Gap 7 mmol/L (8-16); Aspartate Amino Transferase 48 U/L (14-36); Bilirubin,Total 0.1 mg/dL (0.2-1.3); Blood Urea Nitrogen 8 mg/dL (7-17); Calcium 9.3 mg/dL (8.4-10.2); Carbon Dioxide 24 mmol/L (22-30); Chloride 110 mmol/L (98-107); Estimated CRCL calculation 68 ml/min; Estimated Glomerular Filt Rate > 60; Glucose 104 mg/dL (65-105); Sodium 141 mmol/L (137-145)
[2020-07-06 00:03] LABS: Prothrombin Time 12.4 Seconds (11.1-14.7)
[2020-07-06 00:04] LABS: Partial Thromboplastin Time 25.5 SECONDS (22.3-36.8)
[2020-07-06 00:18] VITALS: BP 125/84; PULSE 99; RESP 17; O2SAT 95
[2020-07-06 00:23] LABS: Add Urine Microscopic? YES; Appearance Urine Clear (Clear); Bacteria Urine Trace /hpf; Bilirubin Urine Negative (Negative); Blood Urine Negative (Negative); Color Urine Yellow (Yellow); Glucose Urine UA Negative (Negative); Ketones Urine Negative (Negative); Leukocyte Esterase Ur 2+ LEU/UL (Negative); Mucus Urine Rare /lpf; Nitrate Urine Positive (Negative); Protein Urine Negative (Negative); RBC Urine 0-2 /hpf (0-2); Specific Grav Ur 1.015 (1.001-1.035); Squamous Epithelial Cell Urine Moderate /hpf (Few); Urobilinogen Urine Negative mg/dL (<2.0); WBC Urine 21-30 /hpf
[2020-07-06 00:29] LABS: Amphetamine Screen Urine Negative (Negative); Barbiturate Screen Urine Negative (Negative); Benzodiazepines Screen Urine Negative (Negative); Cannabinoid Screen Urine Negative (Negative); Cocaine Screen Urine Negative (Negative); Methadone Screen Urine Negative (Negative); Opiate Screen Urine Negative (Negative); Phencyclidine Screen Urine Negative (Negative)
[2020-07-06 02:10] VITALS: BP 125/75; PULSE 96; RESP 18; O2SAT 99
[2020-07-06] MEDS: ACETAMINOPHEN 325 MG TABLET 650 MG PO (03:35)
--- NOTE | 2020-07-06 03:55 | PC.NURSE ---
pt states she does not have a ride home at this time. pt states her mother is [address] in the dark. pt states she has a son but he does not have a ride. this RN attempted to contact pt's son multiple times without success. pt states she will take the bus home in the am. Charge, RN aware. pt resting on stretcher in NAD.
--- NOTE | 2020-07-06 04:00 | PC.NURSE ---
pt sleeping on stretcher at this time in nad. rr even and unlabored, pt does not appear to be in pain.
[2020-07-06 05:51] VITALS: BP 124/84; PULSE 73; RESP 17; O2SAT 97
--- NOTE | 2020-07-06 05:51 | PC.NURSE ---
this RN and Charge, RN to bedside to discuss pt's options. pt provided with pants and socks at this time, states she is going to the bus stop for a ride.
== END 2020-07-06 05:53 | disposition home or self-care (01) ==
PROVIDERS: Emergency Provider Emergency Medicine; PCP Family Medicine
DX: N39.0 Urinary tract infection, site not specified (principal); F17.210 Nicotine dependence, cigarettes, uncomplicated; F41.9 Anxiety disorder, unspecified; F32.9 Major depressive disorder, single episode, unspecified; K21.9 Gastro-esophageal reflux disease without esophagitis; Z86.19 Personal history of other infectious and parasitic diseases; Z85.038 Personal history of other malignant neoplasm of large intestine; R51 Headache; G40.909 Epilepsy, unspecified, not intractable, without status epilepticus
CPT/HCPCS: 36415; 70450; 80053; 80307; 81001; 85025; 85610; 85730; 87077; 87086; 87088; 87186; 96361; 96365; 99284; A9270; J0696; J7030

== ENCOUNTER 2020-07-14 20:07 | Emergency (ER) | payer MEDICARE, MEDICAID, SELFPAY ==
--- NOTE | ~2020-07-14 | XR_ITS ---
EXAMINATION: XR shoulder LT min 2V DATE: 07/14/2020 23:46 INDICATION: Left shoulder pain. Fall. TECHNIQUE: Left humerus radiographs 05/01/2020 were obtained. COMPARISON: None. FINDINGS: There is a comminuted fracture of proximal diaphysis of left humerus. The main distal fract ure fragment demonstrates one shaft width medial displacement, 17 degrees medial angulation, and 5 mm posterior displacement. There is mild osteoarthritis of glenohumeral joint and acromioclavicular lavelle nt. There are changes of anterior fusion procedure in cervical spine. There are changes of posterior fusion procedure in thoracolumbar spine. There is a right chest port with tip at superior cavoatrial junction. IMPRESSION: 1. Comminuted fracture of diaphysis of left humerus with interval worsening of alignment. 2. Mild polyarticular osteoarthritis. Reviewed, dictated and finalized at location A.
[2020-07-14 20:50] VITALS: BP 113/97; PULSE 85; RESP 20; TEMP 36.7; O2SAT 100
[2020-07-14 22:13] VITALS: BP 93/66; PULSE 89; RESP 20; TEMP 36; O2SAT 97
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
== END 2020-07-15 00:16 | disposition home or self-care (01) ==
LOC: ANHED 07-15 00:17
PROVIDERS: Emergency Provider Emergency Medicine; PCP Family Medicine
DX: S42.202A Unspecified fracture of upper end of left humerus, initial encounter for closed fracture (principal); W22.8XXA Striking against or struck by other objects, initial encounter; F17.210 Nicotine dependence, cigarettes, uncomplicated
CPT/HCPCS: 73030; 99284; A4565

== ENCOUNTER 2020-07-19 14:00 | Emergency (ER) | payer MEDICARE, MEDICAID, SELFPAY ==
--- NOTE | ~2020-07-19 | XR_ITS ---
EXAMINATION: XR chest 2V EXAM DATE: 07/19/2020 14:45 INDICATION: Chest tightness. TECHNIQUE: Frontal and lateral projections of the chest obtained and reviewed. Comparison is made to prior examination from 05/01/2020. FINDINGS: Comminuted left mid humeral fracture, appears subacute, but without solid bone bridging Sma ll amount of linear left basilar atelectasis or scarring. The lungs are otherwise clear. There are n o pleural effusions. The cardiomediastinal silhouette is within normal limits. There is no pneumoth orax suspected. Thoracolumbar Miller rods. Cervical fusion hardware. Right-sided portacatheter. IMPRESSION: Subsegmental left basilar linear scarring or atelectasis. Subacute left mid humeral fract ure. Reviewed, dictated and finalized at location B. IMPRESSION: Subsegmental left basilar linear scarring or atelectasis. Subacute left mid humeral fracture.
--- NOTE | ~2020-07-19 | CT_ITS ---
EXAMINATION: CT brain wo con EXAM DATE: 07/19/2020 14:58 INDICATION: Confusion. Anxiety. TECHNIQUE: Spiral CT of the head was performed without contrast. Axial, coronal and sagittal images were reviewed. The dose-length product (DLP) for this examination was 605.33 mGy-cm. The exposure w as tailored according to patient size, and iterative reconstruction (ASIR) was used as additional dos e reduction technique. Comparison is made to prior examination from 07/05/2020. FINDINGS: There is no acute intraparenchymal hemorrhage. No evidence of intraparenchymal brain mass lesion. No evidence of acute infarction. Please note that initial head CT has limited sensitivity f or small or acute infarctions. There is moderate periventricular and subcortical hypodensity, nonspec ific but probably related to small vessel ischemic disease. There is moderate prominence of the sul ci and ventricles related to cerebral atrophy. There is intracranial carotid arteriosclerosis. The re are no extra-axial collections. There is no mass effect or midline shift. The orbits are unremar kable. Soft tissue is unremarkable. The visualized sinuses and mastoid air cells are well aerated. IMPRESSION: 1. No acute intracranial findings. 2. Chronic age related findings. Reviewed, dictated and finalized at location B.
[2020-07-19 14:06] VITALS: BP 93/65; PULSE 95; RESP 17; TEMP 36.7; O2SAT 98
--- NOTE | 2020-07-19 14:10 | ECG_ITS ---
Measurements Intervals [place] Rate: 95 P: 78 MT: 151 QRS: 111 QRSD: 76 T: 85 QT: 344 QTc: 433 Interpretive Statements SINUS RHYTHM POSSIBLE LEFT ATRIAL ENLARGEMENT MINIMAL Q WAVES- INFERIOR LEADS BORDERLINE T WAVE ABNORMALITY- HIGH LATERAL LEADS BASELINE ARTIFACT- I, III, AVR, AVL, AVF, V1-V6 BORDERLINE ECG Electronically Signed On 07-19-2020 15:08:42 CDT by Jules Workman D.O.
[2020-07-19 14:21] LABS: Basophils Absolute Auto 0.1 K/mm3 (0.0-0.1); Basophils Percent Auto 0.6 % (0.2-1.2); Eosinophils Absolute Auto 0.1 K/mm3 (0-0.3); Eosinophils Percent Auto 0.6 % (0-4.4); Hematocrit 43.5 % (37.0-47.0); Hemoglobin 14.4 g/dL (12.0-15.0); Immature Granulocyte Absolute 0.06 K/mm3 (0.00-0.031); Immature Granulocyte Percent A 0.5 % (0-0.5); Lymphocytes Absolute Auto 3.09 K/mm3 (0.9-3.2); Lymphocytes Percent Auto 24.5 % (18.3-44.2); Mean Corpuscular HGB Conc 33.1 g/dl (32-36); Mean Corpuscular Volume 96.7 fl (80-100); Mean Platelet Volume 10.2 fl (7.4-10.4); Monocytes Absolute Auto 0.9 K/mm3 (0.1-0.6); Monocytes Percent Auto 6.7 % (2.6-8.5); Neutrophils Absolute Auto 8.5 K/mm3 (1.3-6.7); Neutrophils Percent Auto 67.1 % (45.5-73.1); Platelet Count Result 396 k/mm3 (150-375); Red Cell Distribution Width 13.7 % (11.5-14.5); White Blood Count 12.6 K/mm3 (4.5-10.0)
[2020-07-19 14:30] VITALS: BP 85/46; PULSE 92; RESP 20; O2SAT 94
[2020-07-19 14:39] LABS: Prothrombin Time 12.6 Seconds (11.1-14.7)
[2020-07-19 14:40] LABS: Partial Thromboplastin Time 22.7 SECONDS (22.3-36.8)
--- NOTE | 2020-07-19 14:46 | ED.GENADULT ---
HPI - General Adult General Chief complaint: Anxiety Stated complaint: CP/ANXIETY Time Seen by Provider: 07/19/20 14:12 Source: patient and EMS Limitations: no limitations History of Present Illness HPI narrative: Patient 64 years old white female lives alone came to the emergency room by ambulance complaining of not feeling good, panicky and distressed. History of hydrocodone use, ran out of it 2 days ago, patient used to be on 1 tablet every 4-6 hours as needed because of chronic back pain and scoliosis. Patient feeling foggy with poor concentration. History of chronic back pain, seizure and hypothyroidism. Related Data Home Medications Medication Instructions Recorded Confirmed ibuprofen 400 mg PO TID PRN 12/20/19 04/09/20 Allergies Allergy/AdvReac Type Severity Reaction Status Date / Time Sulfa (Sulfonamide Allergy Unknown Unknown Verified 07/14/20 20:58 Antibiotics) Review of Systems Review of Systems: Narrative: CONSTITUTIONAL: Denies fever, chills, or sweats. EYES: Denies visual changes, redness, or discharge. ENT: Denies rhinorrhea, congestion, sore throat, or otalgia. CARDIOVASCULAR: Denies chest pain, palpitations, or edema. RESPIRATORY: Denies cough or dyspnea. GASTROINTESTINAL: Denies abdominal pain, nausea, vomiting, or diarrhea. GENITOURINARY: Denies dysuria or hematuria. SKIN: Denies rash or itching. MUSCULOSKELETAL: Denies back pain, joint pain, or myalgia. NEUROLOGIC: Denies headache, numbness, or weakness. PSYCHIATRIC: Complains of anxiety and depression PMFSH Past Medical History Medical History Anxiety Back pain with history of spinal surgery Miller rods placed due to scoliosis Colon cancer Depression Fracture of right ankle, lateral malleolus Nondisplaced comminuted fracture lateral malleolus 11/13/2019 Frequent falls GERD (gastroesophageal reflux disease) GI bleed With history of gastric and duodenal ulcer 09/2018 Hepatitis C Has a teenage History of colon cancer Status post sigmoid resection 05/05/2017 Hx of seizure disorder With normal EEG and MRI demonstrating arachnoid cyst in the left temporal lobe with chronic small-vessel ischemic changes in November 2016 IBS (irritable bowel syndrome) 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 Surgical History Surgical History History of bilateral carpal tunnel release History of bone graft from LLE to repair bilateral wrist fractures History of colon resection sigmoid due to colon cancer April 2017 History of cystoscopy with stents March 2017 Hx of section Port-A-Cath in place Scoliosis deformity of spine With surgical repair Wrist fracture, bilateral Requiring bone graft Family History Family History Mother Diabetes mellitus Hypertension COPD (chronic obstructive pulmonary disease) Father MVA (motor vehicle accident) Alcohol abuse Sibling Drug overdose Social History Social History Social History: Primary care physician: Dr. Carolyn Ibarra Code status: Full code per EMR Smoking packs per day: 1 Smoking cigarettes per day: 20.0 Years smoked: 47 Smoking pack-years: 47.00 Smoking status: Current every day smoker Tobacco type: cigarettes Second hand tobacco smoke exposure: Yes Alcohol intake: current Drinks per week: 1 Substance use: unknown Substance use type: does not use Additional living arrangements comments: Pt lives in an apartment complex. Additional occupation/education comments: The patient reports that she is disabled due to her seizures. Gender identity (if verbalized by the patient): Female Spiritual care concerns: No Agree to blood products: Yes Exam Narrative: Exam Narrative: General appe
--- NOTE | 2020-07-19 14:47 | PC.NURSE ---
Received call stating SBAR that was faxed @ 2060 to [place] was not received. Preparing to resend.
[2020-07-19 14:48] VITALS: BP 85/61; PULSE 90; RESP 16
[2020-07-19] MEDS: KETOROLAC 30 MG/ML VIAL (*BKC) IV PUSH (15:09)
[2020-07-19 15:10] VITALS: BP 98/61; PULSE 92; RESP 18; O2SAT 96
[2020-07-19 15:38] LABS: Add Urine Microscopic? NO; Appearance Urine Clear (Clear); Bilirubin Urine Negative (Negative); Blood Urine Negative (Negative); Color Urine Straw (Yellow); Glucose Urine UA Negative (Negative); Ketones Urine Negative (Negative); Leukocyte Esterase Ur Negative LEU/UL (Negative); Mucus Urine Rare /lpf; Nitrate Urine Negative (Negative); Protein Urine Negative (Negative); Specific Grav Ur 1.006 (1.001-1.035); Squamous Epithelial Cell Urine Rare /hpf (Few); Urobilinogen Urine Negative mg/dL (<2.0); WBC Urine 0-3 /hpf
[2020-07-19 15:50] LABS: Basophils Absolute Auto 0.1 K/mm3 (0.0-0.1); Basophils Percent Auto 0.6 % (0.2-1.2); Eosinophils Absolute Auto 0.1 K/mm3 (0-0.3); Eosinophils Percent Auto 0.4 % (0-4.4); Hematocrit 43.6 % (37.0-47.0); Hemoglobin 14.2 g/dL (12.0-15.0); Immature Granulocyte Absolute 0.06 K/mm3 (0.00-0.031); Immature Granulocyte Percent A 0.5 % (0-0.5); Lymphocytes Absolute Auto 2.84 K/mm3 (0.9-3.2); Lymphocytes Percent Auto 22.9 % (18.3-44.2); Mean Corpuscular HGB Conc 32.6 g/dl (32-36); Mean Corpuscular Hemoglobin 31.3 pg (26-34); Mean Corpuscular Volume 96.2 fl (80-100); Mean Platelet Volume 9.5 fl (7.4-10.4); Monocytes Absolute Auto 0.8 K/mm3 (0.1-0.6); Neutrophils Absolute Auto 8.7 K/mm3 (1.3-6.7); Neutrophils Percent Auto 69.6 % (45.5-73.1); Platelet Count Result 307 k/mm3 (150-375); Red Blood Count 4.53 M/mm3 (4.2-5.4); Red Cell Distribution Width 13.4 % (11.5-14.5); White Blood Count 12.4 K/mm3 (4.5-10.0)
[2020-07-19 15:51] LABS: Amphetamine Screen Urine Negative (Negative); Barbiturate Screen Urine Positive (Negative); Benzodiazepines Screen Urine Negative (Negative); Cannabinoid Screen Urine Negative (Negative); Cocaine Screen Urine Negative (Negative); Methadone Screen Urine Negative (Negative); Opiate Screen Urine Negative (Negative); Phencyclidine Screen Urine Negative (Negative)
[2020-07-19 16:05] LABS: Alanine Aminotransferase 26 U/L (4-35); Albumin Level 3.9 g/dL (3.5-5.1); Alkaline Phosphatase 262 U/L (38-126); Anion Gap 11 mmol/L (8-16); Aspartate Amino Transferase 31 U/L (14-36); Bilirubin,Total 0.2 mg/dL (0.2-1.3); Blood Urea Nitrogen 9 mg/dL (7-17); Calcium 9.6 mg/dL (8.4-10.2); Carbon Dioxide 19 mmol/L (22-30); Chloride 108 mmol/L (98-107); Estimated CRCL calculation 61 ml/min; Estimated Glomerular Filt Rate > 60; Glucose 108 mg/dL (65-105); Lipase 68 U/L (23-300); Potassium 3.9 mmol/L (3.4-5.0); Sodium 138 mmol/L (137-145)
[2020-07-19 16:16] LABS: Troponin I < 0.012 ng/mL (0.000-0.034)
--- NOTE | 2020-07-19 16:26 | PC.NURSE ---
Pt up to desk, states get this thing out, I'm leaving!. Dr. Lopez approaches patient and asks why pt is leaving, she states no one's done a Goddamn thing for me! . This RN tells patient that I gave her pain meds and then assisted her to bathroom. Pt states that's a bunch of bullshit! No one took me to the bathroom . Also explained to patient that I had been into her room to reassess her pain response and she had been sleeping. Pt states yeah, cause no one does anything! . IV removed intact. Pt gait steady to waiting room. Pt states she is not driving call me a cab! .
[2020-07-24 12:42] LABS: Methyl Alcohol Level None Detected (None Detected)
== END 2020-07-19 16:27 | disposition left against medical advice (07) ==
PROVIDERS: Emergency Provider Emergency Medicine; PCP Family Medicine
DX: M54.5 Low back pain (principal); G89.29 Other chronic pain; F32.9 Major depressive disorder, single episode, unspecified; F17.210 Nicotine dependence, cigarettes, uncomplicated; Z85.038 Personal history of other malignant neoplasm of large intestine; Z90.49 Acquired absence of other specified parts of digestive tract; F41.9 Anxiety disorder, unspecified; K21.9 Gastro-esophageal reflux disease without esophagitis; Z86.19 Personal history of other infectious and parasitic diseases; K58.9 Irritable bowel syndrome, unspecified; G40.909 Epilepsy, unspecified, not intractable, without status epilepticus; R94.31 Abnormal electrocardiogram [ECG] [EKG]
CPT/HCPCS: 36415; 70450; 71046; 80053; 80307; 81003; 83690; 84484; 84600; 85025; 85610; 85730; 93005; 96374; 99284; J1885

== ENCOUNTER 2020-07-20 18:43 | Observation (INO) | payer MEDICARE, MEDICAID, SELFPAY ==
--- NOTE | ~2020-07-20 | XR_ITS ---
EXAMINATION: XR chest 1V portable INDICATION: Transient alteration of awareness TECHNIQUE: Portable AP chest at 1948 hours COMPARISON: 07/19/2020 FINDINGS: A right subclavian Port-A-Cath ends with its tip in the distal superior vena cava. There ar e minimal airspace opacities of the left lung base with slight worsening. No pleural effusion or pneu mothorax is identified. The cardiomediastinal silhouette is normal. Surgical changes are noted in the cervical and thoracolumbar spine. A partially imaged comminuted, subacute left humerus fracture is n oted. IMPRESSION: 1. Worsening left basilar airspace opacity, consistent with atelectasis versus pneumonia. Reviewed, dictated and finalized at location A.
--- NOTE | ~2020-07-20 | CT_ITS ---
EXAMINATION: CT brain wo con INDICATION: Transient alteration of awareness, alcohol abuse COMPARISON: 07/19/2020 TECHNIQUE: Standard unenhanced head CT. The dose-length product (DLP) was 681.00 mGy-cm. The mA was a djusted according to patient size. Iterative reconstruction technique was employed. FINDINGS: There is no acute intraparenchymal hemorrhage. No evidence of mass lesion. No evidence of a cute infarction. There is moderate periventricular and subcortical hypodensity probably related to sm all vessel ischemic disease and alcohol use. There is moderate prominence of the sulci and ventricles related to cerebral atrophy. Intracranial calcified cerebral atherosclerosis is noted. There are no extra-axial collections. There is no mass effect or midline shift. The orbits and soft tissues are un remarkable. The visualized sinuses and mastoid air cells are well aerated. IMPRESSION: 1. No acute intracranial abnormality. 2. Age related findings. Reviewed, dictated and finalized at location A.
[2020-07-20 18:51] VITALS: BP 105/72; PULSE 103; RESP 18; O2SAT 91
--- NOTE | 2020-07-20 19:10 | ED.ANXIETY ---
HPI - Anxiety General Chief Complaint: Anxiety Stated Complaint: Panic attack Time Seen by Provider: 07/20/20 19:10 Source: patient and EMS Mode of arrival: EMS Limitations: intoxication History of Present Illness HPI narrative: Patient is a 64-year-old female who presents for evaluation of possible seizure activity versus fall versus panic attack. Per EMS report, patient had a panic attack and has a known history of alcoholism, was initially refusing transport but given slurred speech she was brought in for evaluation. At the time of my assessment, patient is intoxicated admits to drinking alcohol. She is alert and oriented to person, place, and to time. She can identify the president. She reports feeling sore all over. She denies headache or neck pain. No cough or shortness of breath. No fever or chills. Patient states that she was drinking this evening with friends when she thinks that she had a seizure. She states her friends then called EMS, and she was refusing transport but because she had been drinking the EMS crew brought her in any way. Patient states that she has felt panicked and anxious lately and left AGAINST MEDICAL ADVICE from the emergency department yesterday after being evaluated for an episode of panic. Patient is taking Keppra, states she is compliant with her medications. She does not follow with a neurologist but her primary care physician Dr. Ibarra prescribes her antiepileptic medication. Related Data Home Medications Medication Instructions Recorded Confirmed ibuprofen 400 mg PO TID PRN 12/20/19 04/09/20 Allergies Allergy/AdvReac Type Severity Reaction Status Date / Time Sulfa (Sulfonamide Allergy Unknown Unknown Verified 07/20/20 18:56 Antibiotics) Review of Systems Review of Systems: Narrative: CONSTITUTIONAL: Denies fever, chills, or sweats. EYES: Denies visual changes ENT: Denies rhinorrhea, congestion CARDIOVASCULAR: Denies chest pain, palpitations, or edema. RESPIRATORY: Denies cough or dyspnea. GASTROINTESTINAL: Denies abdominal pain, nausea, vomiting, or diarrhea. GENITOURINARY: Denies dysuria or hematuria. SKIN: Denies rash or itching. MUSCULOSKELETAL: Denies back pain, reports mild soreness throughout her body, denies specific joint pain NEUROLOGIC: Denies headache, numbness, or weakness. [facility] Past Medical History Medical History Anxiety Back pain with history of spinal surgery Miller rods placed due to scoliosis Colon cancer Depression Fracture of right ankle, lateral malleolus Nondisplaced comminuted fracture lateral malleolus 11/13/2019 Frequent falls GERD (gastroesophageal reflux disease) GI bleed With history of gastric and duodenal ulcer 09/2018 Hepatitis C Has a teenage History of colon cancer Status post sigmoid resection 05/05/2017 Hx of seizure disorder With normal EEG and MRI demonstrating arachnoid cyst in the left temporal lobe with chronic small-vessel ischemic changes in November 2016 IBS (irritable bowel syndrome) 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 Surgical History Surgical History History of bilateral carpal tunnel release History of bone graft from LLE to repair bilateral wrist fractures History of colon resection sigmoid due to colon cancer April 2017 History of cystoscopy with stents March 2017 Hx of section Port-A-Cath in place Scoliosis deformity of spine With surgical repair Wrist fracture, bilateral Requiring bone graft Social History Social History Social History: Primary care physician: Dr. Carolyn Ibarra Code status: Full code per EMR Smoking packs per day: 1 Smoking cigarettes per day: 20.0 Years smoked: 47 Smoking pack-years: 47.00 Smoking status: Current every day smoker Tobacco type: cigarettes
--- NOTE | 2020-07-20 19:26 | ECG_ITS ---
Measurements Intervals [place] Rate: 102 P: 63 PA: 139 QRS: 68 QRSD: 92 T: 65 QT: 355 QTc: 464 Interpretive Statements SINUS TACHYCARDIA LOW QRS VOLTAGE IN PRECORDIAL LEADS BORDERLINE T WAVE ABNORMALITY- HIGH LATERAL LEADS BASELINE WANDER- I, II, V1-V5 BORDERLINE ECG Electronically Signed On 07-21-2020 6:49:08 CDT by Jules Workman D.O.
[2020-07-20 19:45] LABS: Hematocrit 42.1 % (37.0-47.0); Hemoglobin 13.9 g/dL (12.0-15.0); Mean Corpuscular Hemoglobin 31.8 pg (26-34); Mean Corpuscular Volume 96.3 fl (80-100); Mean Platelet Volume 9.6 fl (7.4-10.4); Platelet Count Result 339 k/mm3 (150-375); Red Blood Count 4.37 M/mm3 (4.2-5.4); Red Cell Distribution Width 13.6 % (11.5-14.5); White Blood Count 10.4 K/mm3 (4.5-10.0)
[2020-07-20 19:57] LABS: Alanine Aminotransferase 29 U/L (4-35); Albumin Level 3.9 g/dL (3.5-5.1); Alkaline Phosphatase 266 U/L (38-126); Anion Gap 11 mmol/L (8-16); Aspartate Amino Transferase 44 U/L (14-36); Bilirubin,Total 0.2 mg/dL (0.2-1.3); Blood Urea Nitrogen 10 mg/dL (7-17); Calcium 9.4 mg/dL (8.4-10.2); Carbon Dioxide 18 mmol/L (22-30); Chloride 113 mmol/L (98-107); Estimated CRCL calculation 75 ml/min; Estimated Glomerular Filt Rate > 60; Glucose 116 mg/dL (65-105); Lipase 97 U/L (23-300); Potassium 4.7 mmol/L (3.4-5.0); Sodium 142 mmol/L (137-145)
[2020-07-20 19:59] LABS: Atypical Lymphocytes Present; Band Neutrophils Percent 2 % (0-6); Eosinophils Percent Manual 1 % (0-4); Lymphocytes Percent Manual 52 % (18-44); Monocytes Absolute Manual 0.62 K/mm3 (0.1-0.90); Monocytes Percent Manual 6 % (3-9); Neutrophils Absolute Manual 4.26 K/mm3 (1.7-7.2); Neutrophils Percent Manual 39 % (46-73); Platelet Estimate Adequate (Adequate); Total Cells Counted 100
[2020-07-20] MEDS: SODIUM CHLORIDE 0.9% IV 1,000 ML 999 ML IV CONT (20:06)
[2020-07-20 20:22] LABS: Ethanol 357 mg/dL (<10)
[2020-07-20 20:46] VITALS: BP 135/83; PULSE 103; RESP 22; O2SAT 93
--- NOTE | 2020-07-20 20:56 | PC.NURSE ---
Per EDThomas Barrett via verbal order read-back, administer banana bag over 1hr at 999ml/hr.
[2020-07-20 21:24] LABS: Add Urine Microscopic? NO; Appearance Urine Clear (Clear); Bilirubin Urine Negative (Negative); Blood Urine Negative (Negative); Color Urine Straw (Yellow); Glucose Urine UA Negative (Negative); Ketones Urine Negative (Negative); Leukocyte Esterase Ur Negative LEU/UL (Negative); Nitrate Urine Negative (Negative); Protein Urine Negative (Negative); Specific Grav Ur 1.006 (1.001-1.035); Urobilinogen Urine Negative mg/dL (<2.0)
[2020-07-20 21:31] VITALS: BP 121/80; PULSE 107; RESP 23; O2SAT 92
[2020-07-20] MEDS: MAGNESIUM SULF 2 GM/WATER 50ML 2 GM/50 ML BAG IVPB (21:53)
[2020-07-20 22:02] VITALS: BP 124/75; PULSE 110; RESP 20; O2SAT 93
--- NOTE | 2020-07-20 22:24 | PC.NURSE ---
Patient's O2 saturations began to range from 88%-89%. Patient placed on 2L O2. EDP Bertels notified.
[2020-07-20 23:00] VITALS: BP 121/85; PULSE 110; RESP 18; O2SAT 92
[2020-07-20 23:30] VITALS: BP 118/82; PULSE 114; RESP 19; O2SAT 91
[2020-07-21] VITALS (10 sets, daily range): BP systolic 106–153; BP diastolic 68–94; PULSE 93–122; RESP 16–21; TEMP 36.6–37.1; O2SAT 92–100; BMI 33.3; BMI 33.7
[2020-07-21 00:34] LABS: Alveolar/Arterial O2 Gradient 53.6 mmHg; Base Excess ABG -7.1 mEq/l (+/-2.0); Carboxyhemoglobin 2.2 % THb (0-2.0); Fractional Inspired Oxygen 28 %; HCO3 ABG 19.5 mEq/l (22.0-26.0); Methemoglobin ABG 0.4 %THb (0-1.5); Oxygen Content ABG 18.3 %vol (16.0-22.0); Oxygen Saturation ABG 96.3 % (95.0-100.0); Oxyhemoglobin 93.1 % THb (90.0-100.0); PCO2 ABG 43.3 mmHg (35.0-45.0); PO2 ABG 94.9 mmHg (80.0-100.0); PO2 FiO2 Ratio Arterial Blood 3.39 %; Reduced Hemoglobin 4.3 %THb (0-5.0); Total Hemoglobin 13.9 g/dL (12.0-18.0)
[2020-07-21 00:35] LABS: Modified Allen's Test Pass; Site Drawn RIGHT RADIAL; pH ABG 7.272 (7.350-7.450)
[2020-07-21 00:36] LABS: Device NASAL CANNULA
[2020-07-21] MEDS: SODIUM CHLORIDE 0.9% IV 1,000 ML 150 ML IV CONT (01:28)
[2020-07-21 01:35] LABS: Lactic Acid Reflex 1.4 mmol/L (0.7-2.1)
--- NOTE | 2020-07-21 01:36 | PM.IMHP ---
H&P: HPI History of Present Illness Date/Time: 07/21/20 01:36 Chief complaint: Pneumonia, Metabolic acidosis, Narrative: This is a 64-year-old obese female with known history of seizure disorder who presented to the hospital after suffering a possible seizure this evening. The patient reported that she suffered an acute seizure this evening While she was with friends and fell and suffered trauma to her right forehead which still hurts. She is also complaining of right buttocks pain where she believes she landed. She denies any tongue laceration and is not sure if she had lost urine or not. The patient is known to be on a 1000 mg of Keppra twice a day which her primary care doctor provides for her. The patient was evaluated in the emergency room this evening and found to be intoxicated with a elevated blood alcohol level. The patient did admit to drinking alcohol this evening and states that she drinks alcohol a couple of times a week. The patient denies any recent fevers, chills, shortness of breath, cough, sore throat, or chest pain. ER provider placed the patient on oxygen as it appeared that her oxygen sats began to drop while she was speaking. The patient was seen in the ER yesterday for possible panic attack and chest x-ray that was obtained today demonstrated worsening left basilar airspace opacity. The patient was treated with IV antibiotics and swab for COVID-19. we have been asked to admit the patient to the hospital for further care. Review of Systems Review of Systems: All systems reviewed & are unremarkable except as noted in HPI and below PMFSH Past Medical History Medical History Anxiety Back pain with history of spinal surgery Miller rods placed due to scoliosis Colon cancer Depression Fracture of right ankle, lateral malleolus Nondisplaced comminuted fracture lateral malleolus 11/13/2019 Frequent falls GERD (gastroesophageal reflux disease) GI bleed With history of gastric and duodenal ulcer 09/2018 Hepatitis C Has a teenage History of colon cancer Status post sigmoid resection 05/05/2017 Hx of seizure disorder With normal EEG and MRI demonstrating arachnoid cyst in the left temporal lobe with chronic small-vessel ischemic changes in November 2016 IBS (irritable bowel syndrome) 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 Surgical History Surgical History History of bilateral carpal tunnel release History of bone graft from LLE to repair bilateral wrist fractures History of colon resection sigmoid due to colon cancer April 2017 History of cystoscopy with stents March 2017 Hx of section Port-A-Cath in place Scoliosis deformity of spine With surgical repair Wrist fracture, bilateral Requiring bone graft Family History Family History Mother Diabetes mellitus Hypertension COPD (chronic obstructive pulmonary disease) Father MVA (motor vehicle accident) Alcohol abuse Sibling Drug overdose Social History Social History Social History: Primary care physician: Dr. Carolyn Ibarra Code status: Full code per EMR Smoking packs per day: 1 Smoking cigarettes per day: 20.0 Years smoked: 47 Smoking pack-years: 47.00 Smoking status: Current every day smoker Tobacco type: cigarettes Second hand tobacco smoke exposure: Yes Alcohol intake: current Drinks per week: 5 Substance use: unknown Substance use type: does not use Additional living arrangements comments: Pt lives in an apartment complex. Additional occupation/education comments: The patient reports that she is disabled due to her seizures. Gender identity (if verbalized by the patient): Female Spiritual care concerns: No Agr
--- NOTE | 2020-07-21 02:54 | ADMGEN ---
This patient, Carolyn Royal, was admitted to [facility] Room 332-01. Patient/family oriented to hospital policies and general routines including ID bracelet, bed and alarms, visiting hours, pain management, procedures, bathroom and other care routines, personal items, smoking policy, room service/diet, and visiting hours. Valuables list has been completed. Information on how to activate the Rapid Response Team has been discussed. Patient/Family are encouraged to report perceived risks to care and to ask questions if they do not understand what they are told or what they should do.
[2020-07-21] MEDS: ACETAMINOPHEN 325 MG TABLET 650 MG PO (03:21)
[2020-07-21 06:21] LABS: Basophils Absolute Auto 0.1 K/mm3 (0.0-0.1); Basophils Percent Auto 1.1 % (0.2-1.2); Eosinophils Absolute Auto 0.1 K/mm3 (0-0.3); Eosinophils Percent Auto 1.6 % (0-4.4); Hematocrit 39.2 % (37.0-47.0); Hemoglobin 12.5 g/dL (12.0-15.0); Immature Granulocyte Absolute 0.04 K/mm3 (0.00-0.031); Immature Granulocyte Percent A 0.5 % (0-0.5); Lymphocytes Absolute Auto 3.41 K/mm3 (0.9-3.2); Lymphocytes Percent Auto 44.8 % (18.3-44.2); Mean Corpuscular HGB Conc 31.9 g/dl (32-36); Mean Corpuscular Hemoglobin 31.6 pg (26-34); Mean Platelet Volume 9.5 fl (7.4-10.4); Monocytes Absolute Auto 0.6 K/mm3 (0.1-0.6); Monocytes Percent Auto 7.6 % (2.6-8.5); Neutrophils Absolute Auto 3.4 K/mm3 (1.3-6.7); Neutrophils Percent Auto 44.4 % (45.5-73.1); Platelet Count Result 262 k/mm3 (150-375); Red Blood Count 3.96 M/mm3 (4.2-5.4); Red Cell Distribution Width 13.7 % (11.5-14.5); White Blood Count 7.6 K/mm3 (4.5-10.0)
[2020-07-21 06:32] LABS: Anion Gap 4 mmol/L (8-16); Blood Urea Nitrogen 8 mg/dL (7-17); Calcium 8.5 mg/dL (8.4-10.2); Carbon Dioxide 21 mmol/L (22-30); Chloride 115 mmol/L (98-107); Estimated CRCL calculation 107 ml/min; Estimated Glomerular Filt Rate > 60; Glucose 96 mg/dL (65-105); Magnesium 2.1 mg/dL (1.6-2.3); Phosphorus 3.2 mg/dL (2.5-4.5); Potassium 4.4 mmol/L (3.4-5.0); Sodium 140 mmol/L (137-145)
[2020-07-21] MEDS: THIAMINE HCL 200 MG/2 ML VIAL 100 MG IV PUSH (08:50)
[2020-07-21] MEDS: oxyCODONE/ACETAMINOPHEN (*CRX) 5-325 MG TABLET 1 TABLET PO (08:53)
[2020-07-21] MEDS: ALBUTEROL SULFATE (*SP) AEROSOL 1 PUFF 2 PUFF INHALATION ×2 (08:55→13:05)
[2020-07-21] MEDS: levETIRAcetam 500 MG TABLET 1500 MG PO (11:14)
[2020-07-21] MEDS: LORazepam (*CRX) 0.5 MG TABLET PO (13:39)
--- NOTE | 2020-07-21 13:44 | WPDNEURCNPN ---
Assessment and Plan Assessment and plan (1) Alcohol intoxication: Qualifiers: Complication of substance-induced condition: with unspecified complication Qualified Code(s): F10.929 - Alcohol use, unspecified with intoxication, unspecified Code(s): F10.929 - Alcohol use, unspecified with intoxication, unspecified Status: Acute (2) Seizure disorder: Code(s): G40.909 - Epilepsy, unspecified, not intractable, without status epilepticus Status: Acute Additional Plan alcohol intoxication with history of the seizures for which patient is being treated and will continue the treatment as such with instruction to follow in the office Consult date: 07/21/20 Time Seen: 12:30 HPI: Carolyn Royal is a 64 year old female admitted to the hospital subsequent to having had a seizure in the evening at home when she was found by her friends without any obvious trauma though she was complaining of right forehead is still hurting when she came to the emergency room he also complains of right hip pain that is in the buttock area but she landed on she was not found to have any laceration of the tongue he had been taking Keppra 1000 mg twice a day on initial evaluation she was found to be intoxicated with elevated alcohol level though she did not admit to drinking she had no history of any other generalized symptomatology and she had no history of recent major problem to she was seen in the ER a day before for the possible panic attack she was treated with IV antibiotic and swab for COVID-19 was done at that time initial evaluation revealed her to be afebrile Review of Systems Review of Systems: All systems reviewed & are unremarkable except as noted in HPI and below PMFSH Past Medical History Medical History Anxiety Back pain with history of spinal surgery Miller rods placed due to scoliosis Colon cancer Depression Fracture of right ankle, lateral malleolus Nondisplaced comminuted fracture lateral malleolus 11/13/2019 Frequent falls GERD (gastroesophageal reflux disease) GI bleed With history of gastric and duodenal ulcer 09/2018 Hepatitis C Has a teenage History of colon cancer Status post sigmoid resection 05/05/2017 Hx of seizure disorder With normal EEG and MRI demonstrating arachnoid cyst in the left temporal lobe with chronic small-vessel ischemic changes in November 2016 IBS (irritable bowel syndrome) 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 Surgical History Surgical History History of bilateral carpal tunnel release History of bone graft from LLE to repair bilateral wrist fractures History of colon resection sigmoid due to colon cancer April 2017 History of cystoscopy with stents March 2017 Hx of section Port-A-Cath in place Scoliosis deformity of spine With surgical repair Wrist fracture, bilateral Requiring bone graft Family History Family History Mother Diabetes mellitus Hypertension COPD (chronic obstructive pulmonary disease) Father MVA (motor vehicle accident) Alcohol abuse Sibling Drug overdose Social History Social History Social History: Primary care physician: Dr. Carolyn Ibarra Code status: Full code per EMR Smoking packs per day: 1 Smoking cigarettes per day: 20.0 Years smoked: 47 Smoking pack-years: 47.00 Smoking status: Current every day smoker Tobacco type: cigarettes Second hand tobacco smoke exposure: Yes Alcohol intake: current Drinks per week: 5 Substance use: unknown Substance use type: does not use Additional living arrangements comments: Pt lives in an apartment complex. Additional occupation/education comments: The patient reports that she is disabled due to her
[2020-07-21 14:17] LABS: SARS-CoV-2 RNA PCR Negative
--- NOTE | 2020-07-21 14:53 | PM.DS ---
DS: Admitting Diagnosis Admitting Diagnosis Admitting Diagnosis: Pneumonia, Metabolic acidosis, DS: Discharge Diagnosis Discharge Diagnosis (1) Seizure disorder: Code(s): G40.909 - Epilepsy, unspecified, not intractable, without status epilepticus Status: Acute Assessment and Plan: Likely acute seizure; was intoxicated with alcohol. Question on her home dose Keppra. Instructed her to contact her PCP today to confirm her dosage. Will continue this at discharge. Okay for discharge from Neurology standpoint. F/u with PCP and Dr. Chun as outpatient. She already knows not to drive, swim, bath. (2) Alcohol intoxication: Qualifiers: Complication of substance-induced condition: with unspecified complication Qualified Code(s): F10.929 - Alcohol use, unspecified with intoxication, unspecified Code(s): F10.929 - Alcohol use, unspecified with intoxication, unspecified Status: Acute Assessment and Plan: [facility] protocol. Thiamine IV daily during stay. Lorazepam withdrawal prophylaxis. Encouraged alcohol cessation. (3) Hypoxia: Code(s): R09.02 - Hypoxemia Status: Acute Assessment and Plan: Leukocytosis resolved, denies any symptoms, afebrile, lung exam unremarkable and she has been weaned onto RA. [place] to be likely hypoxia secondary to intoxication; PNA less likely. CXR was suspicious for possible PNA vs. atelectasis; given history and asymptomatic, likely atelectasis. Given IV antibiotics in ED. Will discontinue upon discharge. Follow up with PCP. (4) Suspected 2019 novel coronavirus infection: Code(s): Z20.828 - Contact with and (suspected) exposure to other viral communicable diseases Status: Ruled-out Assessment and Plan: The patient has been swabbed for COVID-19. This was negative. Further care per PCP (5) Back pain with history of spinal surgery: Code(s): M54.9 - Dorsalgia, unspecified Status: Chronic Assessment and Plan: Resume home pain medications. Further care per PCP DS: Summary Hospital Course Reason for hospitalization: Seizure like activity; alcohol intoxication. [facility] Course: Patient is a 64 yo F with known history of seizure disorder who presented to the hospital on 07/20 after suffering a possible seizure that evening. While in the ED, head CT was unremarkable for acute intracranial process, she had markedly elevated ethyl alcohol level and CXR revealed findings suspicious for pneumonia and was given antibiotics. She was found to be hypoxic on RA and was placed on supplemental O2. Patient admitted under this setting. Please see H&P for further details. Presenting VS: temp 98.7 Pulse Resp BP Pulse Ox 103 H 18 105/72 91 07/20/20 18:51 07/20/20 18:51 07/20/20 18:51 07/20/20 18:51 Presenting Pertinent labs: WBC 12.6k, troponin <0.012, TSH 1.30. COVID testing negative. ABG on 2L O2 NC showed pH 7.272, HCO3 19.5. ABG, CBC, coag, chemistry, otherwise unremarkable Micro: BCx pending Imaging: Head CT 07/20/20 19:51 IMPRESSION: 1. No acute intracranial abnormality. 2. Age related findings. Chest X-Ray 07/20/20 20:12 IMPRESSION: 1. Worsening left basilar airspace opacity, consistent with atelectasis versus pneumonia. ECG: Interpretive Statements SINUS TACHYCARDIA LOW QRS VOLTAGE IN PRECORDIAL LEADS BORDERLINE T WAVE ABNORMALITY- HIGH LATERAL LEADS BASELINE WANDER- I, II, V1-V5 BORDERLINE ECG Patient was admitted to the hospitalist service for further evaluation. Dr. Chun (Neurology) was consulted for further input. She was placed back on her home medication of Keppra. Per review of prescription refill, she took 1500 mg Q12 hour, however she states she took 2000 mg Q12 hr. She was placed on 1500 Q12 hour d
--- NOTE | 2020-07-21 15:52 | PC.NURSE ---
Pt is A&O x 3. Pt has discharge orders. Pt has had IV removed, and tele taken off. Pt's discharge paperwork has been reviewed with pt, and pt exhibited good understanding of discharge instructions. Pt has been assisted to the front of building via wheelchair and staff, to wait for her ride.
[2020-07-24 23:41] LABS: Levetiracetam Keppra 8.1 mcg/mL (12.0-46.0)
== END 2020-07-21 15:50 | disposition home or self-care (01) ==
LOC: ANHED 07-21 00:19 → ANH3MEDSUR 07-21 01:43
PROVIDERS: Physician Assistant; Admitting Provider Family Medicine; Emergency Provider Emergency Medicine; PCP Family Medicine; Visit Provider Family Medicine
DX: G40.909 Epilepsy, unspecified, not intractable, without status epilepticus (principal); R09.02 Hypoxemia; Z20.828 Contact with and (suspected) exposure to other viral communicable diseases; F10.929 Alcohol use, unspecified with intoxication, unspecified; Y90.8 Blood alcohol level of 240 mg/100 ml or more; E87.2 Acidosis; E66.9 Obesity, unspecified; F17.210 Nicotine dependence, cigarettes, uncomplicated; M54.9 Dorsalgia, unspecified; Z85.038 Personal history of other malignant neoplasm of large intestine; Z68.33 Body mass index [BMI] 33.0-33.9, adult; Z79.899 Other long term (current) drug therapy
CPT/HCPCS: 36415; 36600; 51701; 70450; 71045; 80048; 80053; 80177; 80307; 81003; 82375; 82805; 83050; 83605; 83690; 83735; 84100; 84443; 85025; 87040; 87635; 93005; 94640; 96365; 96367; 96376; 99285; A9270; C9803; G0378; J0456; J0696; J3411; J3475; J7030; J7121; U0003

== ENCOUNTER 2020-07-23 08:50 | Emergency (ER) | payer MEDICARE, MEDICAID, SELFPAY ==
[2020-07-23 08:48] VITALS: BP 124/83; PULSE 97; RESP 20; TEMP 36.6; O2SAT 98
[2020-07-23 09:17] VITALS: BP 115/86; PULSE 99; RESP 18; O2SAT 95
--- NOTE | 2020-07-23 09:18 | ED.GENADULT ---
HPI - General Adult General Chief complaint: Nausea/Vomiting/Diarrhea Stated complaint: diarrhea Time Seen by Provider: 07/23/20 08:58 Source: patient History of Present Illness HPI narrative: Patient is a 64 y/o female complaining of seizure last night. She states that she lives by herself and seizure is unwitnessed. She has history of seizure and she takes Keppra. She believes that she had a seizure because she woke up on the floor with lamp knocked over. She has has some generalized body ache and diarrhea. She did drink some wine yesterday after. Related Data Home Medications Medication Instructions Recorded Confirmed levetiracetam [Keppra] 1,500 mg PO BID 07/21/20 07/21/20 lorazepam 0.5 mg PO TID PRN 07/21/20 07/21/20 Allergies Allergy/AdvReac Type Severity Reaction Status Date / Time Sulfa (Sulfonamide Allergy Unknown Unknown Verified 07/23/20 08:53 Antibiotics) Review of Systems Constitutional: Constitutional: Denies chills, Denies fever(s), Denies headache(s) and Denies weakness Eyes: Eyes: Denies blurry vision ENT: Denies headache(s) and Denies neck pain Cardiovascular: Cardiovascular: Denies chest pain and Denies dyspnea Respiratory: Respiratory: Denies cough and Denies dyspnea Gastrointestinal: Gastrointestinal: Reports diarrhea, Denies nausea and Denies vomiting Genitourinary: Genitourinary: Denies hematuria and Denies dysuria Musculoskeletal: Musculoskeletal: Reports as per HPI, Denies back pain, Denies neck pain and Reports other (+body ache) Neurologic: Denies headache(s), Reports seizure-like activity and Denies weakness [facility] Past Medical History Medical History Anxiety Back pain with history of spinal surgery Miller rods placed due to scoliosis Colon cancer Depression Fracture of right ankle, lateral malleolus Nondisplaced comminuted fracture lateral malleolus 11/13/2019 Frequent falls GERD (gastroesophageal reflux disease) GI bleed With history of gastric and duodenal ulcer 09/2018 Hepatitis C Has a teenage History of colon cancer Status post sigmoid resection 05/05/2017 Hx of seizure disorder With normal EEG and MRI demonstrating arachnoid cyst in the left temporal lobe with chronic small-vessel ischemic changes in November 2016 IBS (irritable bowel syndrome) 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 Surgical History Surgical History History of bilateral carpal tunnel release History of bone graft from LLE to repair bilateral wrist fractures History of colon resection sigmoid due to colon cancer April 2017 History of cystoscopy with stents March 2017 Hx of section Port-A-Cath in place Scoliosis deformity of spine With surgical repair Wrist fracture, bilateral Requiring bone graft Family History Family History Mother Diabetes mellitus Hypertension COPD (chronic obstructive pulmonary disease) Father MVA (motor vehicle accident) Alcohol abuse Sibling Drug overdose Social History Social History Social History: Primary care physician: Dr. Carolyn Ibarra Code status: Full code per EMR Smoking packs per day: 1 Smoking cigarettes per day: 20.0 Years smoked: 47 Smoking pack-years: 47.00 Smoking status: Current every day smoker Tobacco type: cigarettes Second hand tobacco smoke exposure: Yes Alcohol intake: current Drinks per week: 5 Substance use: unknown Substance use type: does not use Additional living arrangements comments: Pt lives in an apartment complex. Additional occupation/education comments: The patient reports that she is disabled due to her seizures. Gender identity (if verbalized by the patient): Female Spiritual care concerns: No Agree to bl
[2020-07-23 09:37] LABS: Basophils Absolute Auto 0.1 K/mm3 (0.0-0.1); Basophils Percent Auto 0.9 % (0.2-1.2); Eosinophils Absolute Auto 0.1 K/mm3 (0-0.3); Eosinophils Percent Auto 0.7 % (0-4.4); Hematocrit 46.5 % (37.0-47.0); Immature Granulocyte Absolute 0.06 K/mm3 (0.00-0.031); Immature Granulocyte Percent A 0.5 % (0-0.5); Lymphocytes Absolute Auto 4.86 K/mm3 (0.9-3.2); Lymphocytes Percent Auto 41.3 % (18.3-44.2); Mean Corpuscular HGB Conc 32.3 g/dl (32-36); Mean Corpuscular Volume 96.1 fl (80-100); Mean Platelet Volume 9.8 fl (7.4-10.4); Monocytes Absolute Auto 0.5 K/mm3 (0.1-0.6); Monocytes Percent Auto 4.5 % (2.6-8.5); Neutrophils Absolute Auto 6.1 K/mm3 (1.3-6.7); Neutrophils Percent Auto 52.1 % (45.5-73.1); Platelet Count Result 326 k/mm3 (150-375); Red Blood Count 4.84 M/mm3 (4.2-5.4); Red Cell Distribution Width 13.4 % (11.5-14.5); White Blood Count 11.8 K/mm3 (4.5-10.0)
[2020-07-23 09:51] LABS: Add Urine Microscopic? NO; Appearance Urine Clear (Clear); Bilirubin Urine Negative (Negative); Blood Urine Negative (Negative); Color Urine Straw (Yellow); Glucose Urine UA Negative (Negative); Ketones Urine Negative (Negative); Leukocyte Esterase Ur Negative LEU/UL (Negative); Nitrate Urine Negative (Negative); Protein Urine Negative (Negative); Urobilinogen Urine Negative mg/dL (<2.0)
[2020-07-23 13:07] LABS: Reflex Lactic Acid Yes or No Add Lactic
== END 2020-07-23 10:20 | disposition left against medical advice (07) ==
PROVIDERS: Emergency Provider Emergency Medicine; PCP Family Medicine
DX: G40.909 Epilepsy, unspecified, not intractable, without status epilepticus (principal); R19.7 Diarrhea, unspecified; F41.9 Anxiety disorder, unspecified; Z85.038 Personal history of other malignant neoplasm of large intestine; F32.9 Major depressive disorder, single episode, unspecified; K21.9 Gastro-esophageal reflux disease without esophagitis; Z86.19 Personal history of other infectious and parasitic diseases; K58.9 Irritable bowel syndrome, unspecified; Z90.49 Acquired absence of other specified parts of digestive tract; F17.210 Nicotine dependence, cigarettes, uncomplicated
CPT/HCPCS: 36415; 81003; 83605; 85025; 99283

== ENCOUNTER 2020-08-04 17:24 | Emergency (ER) | payer MEDICARE, MEDICAID, SELFPAY ==
[2020-08-04] VITALS (9 sets, daily range): BP systolic 104–139; BP diastolic 66–92; PULSE 111–113; RESP 17–28; O2SAT 95
--- NOTE | ~2020-08-04 | CT_ITS ---
EXAMINATION: CT brain wo con EXAM DATE: 08/04/2020 18:35 INDICATION: Fall, head injury. Neck pain. TECHNIQUE: Spiral CT of the head was performed without contrast. Axial, coronal and sagittal images were reviewed. The dose-length product (DLP) for this examination was 605.33 mGy-cm. The exposure w as tailored according to patient size, and iterative reconstruction (ASIR) was used as additional dos e reduction technique. Comparison is made to prior examination from 07/20/2020. FINDINGS: There is no acute intraparenchymal hemorrhage. No evidence of intraparenchymal brain mass lesion. No evidence of acute infarction. Please note that initial head CT has limited sensitivity f or small or acute infarctions. There is moderate periventricular and subcortical hypodensity, nonspec ific but probably related to small vessel ischemic disease. There is moderate prominence of the sul ci and ventricles related to cerebral atrophy. There is intracranial carotid arteriosclerosis. The re are no extra-axial collections. There is no mass effect or midline shift. The orbits are unremar kable. Small right posterior scalp contusion. The visualized sinuses and mastoid air cells are well aerated. IMPRESSION: 1. No acute intracranial findings. 2. Chronic age related findings. Reviewed, dictated and finalized at location A.
--- NOTE | ~2020-08-04 | CT_ITS ---
EXAMINATION: CT cervical spine wo con EXAM DATE: 08/04/2020 18:35 INDICATION: Initial encounter following injury, with pain of the neck. TECHNIQUE: Spiral CT of the cervical spine was performed without contrast. Axial images were reviewe d. Coronal and sagittal reformatted images were also reviewed. The dose-length product (DLP) for thi s examination was 605.33 mGy-cm. The exposure was tailored according to patient size (auto mA exposu re control), and iterative reconstruction (ASIR) was used as additional dose reduction technique. Com parison is made to prior examination from 05/01/2020. FINDINGS: Intact cervical fusion C5-7. There is no evidence of acute cervical fracture. The odontoid process is intact. Pre-dens space is normal. Prevertebral soft tissue is normal. There are no sof t tissue abnormalities identified. There is no disc space widening or traumatic vertebral body sublu xation suspected. Advanced cervical arthropathy. Right-sided Chemo-Port. There is healing right clav icular fracture. A detailed level by level evaluation of spondylosis can be added as addendum if req uested. IMPRESSION: 1. No acute cervical fracture. 2. Intact fusion C5-7. 3. Healing right clavicular fracture. Reviewed, dictated and finalized at location A.
[2020-08-04 18:00] LABS: Basophils Absolute Auto 0.1 K/mm3 (0.0-0.1); Basophils Percent Auto 0.7 % (0.2-1.2); Eosinophils Absolute Auto 0.1 K/mm3 (0-0.3); Eosinophils Percent Auto 0.6 % (0-4.4); Hematocrit 44.5 % (37.0-47.0); Hemoglobin 14.7 g/dL (12.0-15.0); Immature Granulocyte Absolute 0.04 K/mm3 (0.00-0.031); Immature Granulocyte Percent A 0.4 % (0-0.5); Lymphocytes Absolute Auto 4.19 K/mm3 (0.9-3.2); Lymphocytes Percent Auto 42.9 % (18.3-44.2); Mean Corpuscular Hemoglobin 31.5 pg (26-34); Mean Corpuscular Volume 95.5 fl (80-100); Mean Platelet Volume 9.1 fl (7.4-10.4); Monocytes Absolute Auto 0.7 K/mm3 (0.1-0.6); Monocytes Percent Auto 6.9 % (2.6-8.5); Neutrophils Absolute Auto 4.7 K/mm3 (1.3-6.7); Neutrophils Percent Auto 48.5 % (45.5-73.1); Platelet Count Result 367 k/mm3 (150-375); Red Blood Count 4.66 M/mm3 (4.2-5.4); Red Cell Distribution Width 14.3 % (11.5-14.5); White Blood Count 9.8 K/mm3 (4.5-10.0)
[2020-08-04 18:10] LABS: Anion Gap 15 mmol/L (8-16); Blood Urea Nitrogen 9 mg/dL (7-17); Calcium 9.3 mg/dL (8.4-10.2); Carbon Dioxide 24 mmol/L (22-30); Chloride 107 mmol/L (98-107); Estimated CRCL calculation 48 ml/min; Estimated Glomerular Filt Rate > 60; Glucose 106 mg/dL (65-105); Potassium 4.2 mmol/L (3.4-5.0); Sodium 146 mmol/L (137-145)
[2020-08-04 18:11] LABS: Ethanol 202 mg/dL (<10)
[2020-08-04] MEDS: MORPHINE SULFATE (*CRX) 4 MG/ML INJ IV PUSH (18:22)
--- NOTE | 2020-08-04 18:24 | PC.NURSE ---
Patient to CT via stretcher.
--- NOTE | 2020-08-04 19:23 | ED.FALL ---
HPI - Fall General Chief Complaint: Fall Stated Complaint: fall, neck pain Time Seen by Provider: 08/04/20 17:31 Source: patient Mode of arrival: EMS Limitations: no limitations History of Present Illness HPI Narrative: 64-year-old with a history of scoliosis was brought in ambulance from the street with complaints of fall. Patient states that she was walking across the road her knees gave away and she fell. She denies losing consciousness. Complains of neck pain. No history of chest pain or shortness of breath. complaint: fall Onset (ago): minute(s) (30) Fall from: standing Fall witnessed: yes, by bystander Place fall occurred: street Loss of consciousness: none Prolonged down time: no Symptoms prior to fall: none Context: alcohol use Location of injury: neck Related Data Home Medications Medication Instructions Recorded Confirmed levetiracetam [Keppra] 1,500 mg PO BID 07/21/20 07/21/20 lorazepam 0.5 mg PO TID PRN 07/21/20 07/21/20 Allergies Allergy/AdvReac Type Severity Reaction Status Date / Time Sulfa (Sulfonamide Allergy Unknown Unknown Verified 07/23/20 08:53 Antibiotics) Review of Systems Review of Systems: All systems reviewed & are unremarkable except as noted in HPI and below Constitutional: Constitutional: Reports no additional constitutional complaints Eyes: Eyes: Reports no additional eye complaints ENT: Reports system reviewed and no additional complaints, except as documented Cardiovascular: Cardiovascular: Reports no additional cardiovascular complaints Gastrointestinal: Gastrointestinal: Reports no additional gastrointestinal complaints Musculoskeletal: Musculoskeletal: Reports no additional musculoskeletal complaints Neurologic: Reports system reviewed and no additional complaints, except as documented [facility] Past Medical History Medical History (Updated 08/04/20 @ 19:33 by Jasper Syed MD) Anxiety Back pain with history of spinal surgery Miller rods placed due to scoliosis Colon cancer Depression Fracture of right ankle, lateral malleolus Nondisplaced comminuted fracture lateral malleolus 11/13/2019 Frequent falls GERD (gastroesophageal reflux disease) GI bleed With history of gastric and duodenal ulcer 09/2018 Hepatitis C Has a teenage History of colon cancer Status post sigmoid resection 05/05/2017 Hx of seizure disorder With normal EEG and MRI demonstrating arachnoid cyst in the left temporal lobe with chronic small-vessel ischemic changes in November 2016 IBS (irritable bowel syndrome) 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 Surgical History Surgical History History of bilateral carpal tunnel release History of bone graft from LLE to repair bilateral wrist fractures History of colon resection sigmoid due to colon cancer April 2017 History of cystoscopy with stents March 2017 Hx of section Port-A-Cath in place Scoliosis deformity of spine With surgical repair Wrist fracture, bilateral Requiring bone graft Family History Family History Mother Diabetes mellitus Hypertension COPD (chronic obstructive pulmonary disease) Father MVA (motor vehicle accident) Alcohol abuse Sibling Drug overdose Social History Social History Social History: Primary care physician: Dr. Carolyn Ibarra Code status: Full code per EMR Smoking packs per day: 1 Smoking cigarettes per day: 20.0 Years smoked: 47 Smoking pack-years: 47.00 Smoking status: Current every day smoker Tobacco type: cigarettes Second hand tobacco smoke exposure: Yes Alcohol intake: current Drinks per week: 5 Substance use: unknown Substance use type: does not use Additional living arrangements comments: Pt lives in an apartment complex. Add
== END 2020-08-04 19:39 | disposition home or self-care (01) ==
PROVIDERS: Emergency Provider Family Medicine
DX: S16.1XXA Strain of muscle, fascia and tendon at neck level, initial encounter (principal); G40.909 Epilepsy, unspecified, not intractable, without status epilepticus; F41.9 Anxiety disorder, unspecified; F32.9 Major depressive disorder, single episode, unspecified; K21.9 Gastro-esophageal reflux disease without esophagitis; K58.9 Irritable bowel syndrome, unspecified; Z90.49 Acquired absence of other specified parts of digestive tract; Z85.038 Personal history of other malignant neoplasm of large intestine; Z86.19 Personal history of other infectious and parasitic diseases; F17.210 Nicotine dependence, cigarettes, uncomplicated; F10.10 Alcohol abuse, uncomplicated; W18.39XA Other fall on same level, initial encounter
CPT/HCPCS: 36415; 70450; 72125; 80048; 80307; 85025; 96374; 99284; J2270

== ENCOUNTER 2020-08-11 14:45 | Emergency (ER) | payer MEDICARE, MEDICAID, SELFPAY ==
[2020-08-11] VITALS (24 sets, daily range): BP systolic 80–113; BP diastolic 41–76; PULSE 81–97; RESP 14–26; TEMP 37.1; O2SAT 81–95
--- NOTE | ~2020-08-11 | XR_ITS ---
EXAMINATION: XR lumbar spine 2-3V EXAM DATE: 08/11/2020 18:03 INDICATION: Thoracolumbar pain, acute on chronic. Recent fall. TECHNIQUE: Lumber spine frontal, lateral, lateral L5-S1 projections for interpretation. Comparison is made to prior examination from 11/24/2016. FINDINGS: Intact thoracolumbar Miller rods from T10 through the sacrum. There is rectosigmoid rosales stomosis. Bones are osteopenic, but no acute fracture line is identified. There is mild anterior wedg ing of L1, unchanged. There is moderate thoracolumbar levoscoliosis. Sacrum, sacroiliac joints, sacra l arcuate lines are intact. Paraspinal soft tissue is unremarkable. IMPRESSION: 1. Intact thoracolumbar Miller rods. 2. Chronic L1 mild compression. 3. No acute findings. Reviewed, dictated and finalized at location A.
--- NOTE | ~2020-08-11 | XR_ITS ---
EXAMINATION: XR chest 2V DATE: 08/11/2020 16:19 INDICATION: Transient alteration of awareness, seizure TECHNIQUE: AP and lateral views of the chest are obtained. COMPARISON: 06/30/2020 FINDINGS: Left basilar airspace opacities persist but have improved. A right subclavian Port-A-Cath e nds with its tip in the distal superior vena cava. There is no pleural effusion or pneumothorax. Surg ical changes are noted in the cervical and thoracolumbar spine. There is a partially imaged comminute d, subacute left humerus fracture. There is moderate thoracic spondylosis. IMPRESSION: 1. Improving left basilar airspace opacity, consistent with atelectasis versus pneumonia. Reviewed, dictated and finalized at location A.
--- NOTE | ~2020-08-11 | XR_ITS ---
EXAMINATION: XR thoracic spine 3V EXAM DATE: 08/11/2020 18:02 INDICATION: Fell today with acute on chronic mid and lower back pain. Initial encounter. TECHNIQUE: Frontal and lateral projections of the thoracic spine as well as lateral swimmers projecti on of the upper thoracic spine for interpretation. Comparison is made to prior examination from 2016. FINDINGS: There is moderate thoracic dextroscoliosis and moderate thoracolumbar levoscoliosis. Thora columbar Miller rods intact. Compression fractures which have been treated with methylmethacrylat e at the T10 and T11 levels. There is cervical fusion hardware. There is a right-sided portacatheter. Somewhat limited exam due to osteopenia, but no acute fractures identified. Paraspinal soft tissue i s unremarkable. There is mild to moderate thoracic spondylosis. IMPRESSION: 1. Intact thoracolumbar Miller rods. 2. Mild to moderate thoracic spondylosis. Reviewed, dictated and finalized at location A.
--- NOTE | ~2020-08-11 | CT_ITS ---
EXAMINATION: CT brain wo con EXAM DATE: 08/11/2020 16:04 INDICATION: Seizure, generalized headache. TECHNIQUE: Spiral CT of the head was performed without contrast. Axial, coronal and sagittal images were reviewed. The dose-length product (DLP) for this examination was 605.33 mGy-cm. The exposure w as tailored according to patient size, and iterative reconstruction (ASIR) was used as additional dos e reduction technique. Comparison is made to prior examination from 08/04/2020. FINDINGS: There is no acute intraparenchymal hemorrhage. No evidence of intraparenchymal brain mass lesion. No evidence of acute infarction. Please note that initial head CT has limited sensitivity f or small or acute infarctions. There is moderate periventricular and subcortical hypodensity, nonspec ific but probably related to small vessel ischemic disease. There is moderate prominence of the sul ci and ventricles related to cerebral atrophy. There is intracranial carotid arteriosclerosis. The re are no extra-axial collections. There is no mass effect or midline shift. The orbits are unremar kable. Soft tissue is unremarkable. The visualized sinuses and mastoid air cells are well aerated. IMPRESSION: 1. No acute intracranial findings. 2. Chronic age related findings. Reviewed, dictated and finalized at location A.
[2020-08-11 16:01] LABS: Basophils Absolute Auto 0.1 K/mm3 (0.0-0.1); Basophils Percent Auto 0.9 % (0.2-1.2); Eosinophils Absolute Auto 0.2 K/mm3 (0-0.3); Eosinophils Percent Auto 1.4 % (0-4.4); Hematocrit 41.7 % (37.0-47.0); Hemoglobin 13.4 g/dL (12.0-15.0); Immature Granulocyte Percent A 0.9 % (0-0.5); Lymphocytes Absolute Auto 3.11 K/mm3 (0.9-3.2); Mean Corpuscular HGB Conc 32.1 g/dl (32-36); Mean Corpuscular Hemoglobin 31.8 pg (26-34); Mean Corpuscular Volume 98.8 fl (80-100); Mean Platelet Volume 9.9 fl (7.4-10.4); Monocytes Absolute Auto 0.7 K/mm3 (0.1-0.6); Monocytes Percent Auto 6.9 % (2.6-8.5); Neutrophils Absolute Auto 6.5 K/mm3 (1.3-6.7); Neutrophils Percent Auto 60.9 % (45.5-73.1); Platelet Count Result 285 k/mm3 (150-375); Red Blood Count 4.22 M/mm3 (4.2-5.4); Red Cell Distribution Width 14.3 % (11.5-14.5); White Blood Count 10.7 K/mm3 (4.5-10.0)
[2020-08-11 16:08] LABS: INR 1.1; Prothrombin Time 13.5 Seconds (11.1-14.7)
--- NOTE | 2020-08-11 16:09 | ED.SEIZURE ---
HPI - Seizure General Chief Complaint: Seizure Stated Complaint: ?SEIZURE Time Seen by Provider: 08/11/20 15:15 History of Present Illness HPI Narrative: Patient is a 64-year-old female who presents ER with concern for possible seizures. Patient reports that she was found in a parking lot yesterday after having what she thought was a seizure and then today she got up to go to the bathroom and woke up on the ground and thinks she had another seizure. She has been taking Keppra for over 15 years related to her seizures. She has not seen a neurologist recently and has been getting the medications from her primary care physician. She does have some positional dizziness. No fast heart rate/shortness of breath. Has no pain from her to seizure versus syncopal episodes. Of note her blood pressure is low here. She reports she does not typically have low blood pressure. Seizure History: Yes (since 2007) Related Data Home Medications Medication Instructions Recorded Confirmed levetiracetam [Keppra] 1,500 mg PO BID 07/21/20 07/21/20 lorazepam 0.5 mg PO TID PRN 07/21/20 07/21/20 Allergies Allergy/AdvReac Type Severity Reaction Status Date / Time Sulfa (Sulfonamide Allergy Unknown Unknown Verified 08/11/20 14:57 Antibiotics) Review of Systems Review of Systems: All systems reviewed & are unremarkable except as noted in HPI and below Constitutional: Constitutional: Denies fever(s) and Denies weakness ENT: Denies nasal congestion and Denies sore throat Cardiovascular: Cardiovascular: Denies chest pain and Denies rapid heart rate Neurologic: Reports syncope Comments: possible seizures PMF Past Medical History Medical History (Updated 08/11/20 @ 18:20 by Ralph Loera MD) Anxiety Back pain with history of spinal surgery Miller rods placed due to scoliosis Colon cancer Depression Fracture of right ankle, lateral malleolus Nondisplaced comminuted fracture lateral malleolus 11/13/2019 Frequent falls GERD (gastroesophageal reflux disease) GI bleed With history of gastric and duodenal ulcer 09/2018 Hepatitis C Has a teenage History of colon cancer Status post sigmoid resection 05/05/2017 Hx of seizure disorder With normal EEG and MRI demonstrating arachnoid cyst in the left temporal lobe with chronic small-vessel ischemic changes in November 2016 IBS (irritable bowel syndrome) 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 Surgical History Surgical History History of bilateral carpal tunnel release History of bone graft from LLE to repair bilateral wrist fractures History of colon resection sigmoid due to colon cancer April 2017 History of cystoscopy with stents March 2017 Hx of section Port-A-Cath in place Scoliosis deformity of spine With surgical repair Wrist fracture, bilateral Requiring bone graft Family History Family History Mother Diabetes mellitus Hypertension COPD (chronic obstructive pulmonary disease) Father MVA (motor vehicle accident) Alcohol abuse Sibling Drug overdose Social History Social History Social History: Primary care physician: Dr. Carolyn Ibarra Code status: Full code per EMR Smoking packs per day: 1 Smoking cigarettes per day: 20.0 Years smoked: 47 Smoking pack-years: 47.00 Smoking status: Current every day smoker Tobacco type: cigarettes Second hand tobacco smoke exposure: Yes Alcohol intake: current Drinks per week: 5 Substance use: unknown Substance use type: does not use Additional living arrangements comments: Pt lives in an apartment complex. Additional occupation/education comments: The patient reports that she is disabled due to her seizures. Gender identity (if verbalized by the patient): Female Se
--- NOTE | 2020-08-11 16:10 | PC.NURSE ---
this RN at bedside to access patient's port in right chest. patient states port has not been accessed in 5 years. patient is poor historian at times. port accessed. blood return noted. labs sent. denies pain in area of port. repositioned in bed.
--- NOTE | 2020-08-11 16:15 | PC.NURSE ---
patient verbally aggressive with MD at bedside and this RN. cussing. states that she just needs pain medications and wants to go home. patient redirected several times. still agitated at times. need blue top for labs. unable to pull from port. metallurgical engineering technician placed SL in right forearm. all explained to patient. patient verbalizes understanding at time but is angry and beligerent at other times.
[2020-08-11 16:16] LABS: Partial Thromboplastin Time < 20.0 SECONDS (22.3-36.8)
[2020-08-11] MEDS: SODIUM CHLORIDE 0.9% IV 1,000 ML 999 ML IV CONT (17:22)
--- NOTE | 2020-08-11 17:28 | PC.NURSE ---
pt verbally aggressive toward nurse. screaming at nurse. 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 this is fucking bullshit . RN was able to calmly get pt back into bed, and ask what the patient was needing assistance with. pt screamed i hit my fucking head, i have pins/rods in my back. i fell and im dying in pain. i need pain medicine. this is neglect. im calling 911 and having the come pick me up to take me to a different hospital. RN let pt know she would speak to the erp about her request for pain meds at this time. ERP Dr. Loera made aware. He will order medications.
[2020-08-11 17:35] LABS: Anion Gap 9 mmol/L (8-16); Blood Urea Nitrogen 12 mg/dL (7-17); Calcium 9.1 mg/dL (8.4-10.2); Carbon Dioxide 22 mmol/L (22-30); Chloride 111 mmol/L (98-107); Estimated CRCL calculation 62 ml/min; Estimated Glomerular Filt Rate > 60; Glucose 99 mg/dL (65-105); Potassium 3.6 mmol/L (3.4-5.0); Sodium 142 mmol/L (137-145)
--- NOTE | 2020-08-11 18:18 | PC.NURSE ---
pt refusing po tylenol. threw covers off herself, started ripping cords and iv tubing that was connected to port access. RN asked pt to have a seat so that she could remove the iv tubing from around her neck and so that she did not hurt herself by ripping it out of the port site. Pt started yelling at nurse continued to rip tubing. RN notified md of this aggressive pt behavior at this time.
--- NOTE | 2020-08-11 18:20 | PC.NURSE ---
RN x 2 at bedside. RN attempting to remove iv access and port access. pt had pulled her port access almost all the way out. pt continues to scream about im suing you and this is negligence While rn is at bedside attempting to remove both port access and iv access. pt proceeded to rip her mask off while screaming and threw her gown at nurse/bed.pt refusing to sign discharge paperwork.
== END 2020-08-11 18:46 | disposition home or self-care (01) ==
PROVIDERS: Emergency Provider Emergency Medicine; PCP Family Medicine
DX: R55 Syncope and collapse (principal); G40.909 Epilepsy, unspecified, not intractable, without status epilepticus; K21.9 Gastro-esophageal reflux disease without esophagitis; Z85.038 Personal history of other malignant neoplasm of large intestine; Z86.2 Personal history of diseases of the blood and blood-forming organs and certain disorders involving the immune mechanism; Z90.49 Acquired absence of other specified parts of digestive tract; K58.9 Irritable bowel syndrome, unspecified; F32.9 Major depressive disorder, single episode, unspecified; F41.9 Anxiety disorder, unspecified; F17.210 Nicotine dependence, cigarettes, uncomplicated; M47.814 Spondylosis without myelopathy or radiculopathy, thoracic region; R91.8 Other nonspecific abnormal finding of lung field
CPT/HCPCS: 36415; 70450; 71046; 71100; 72072; 72100; 80048; 81001; 85025; 85610; 85730; 87086; 93005; 96360; 96372; 99283; 99284; J1885; J7030

== ENCOUNTER 2020-08-11 21:33 | Emergency (ER) | payer MEDICARE, MEDICAID, SELFPAY ==
--- NOTE | ~2020-08-11 | XR_ITS ---
EXAMINATION: XR ribs LT 2V EXAM DATE: 08/11/2020 22:31 INDICATION: Initial encounter following injury, with pain of the left ribs. TECHNIQUE: Frontal projection of the upper left ribs, frontal projection of the lower left ribs, obli que projection of the left ribs, without chest x-ray(s) for interpretation. There is no prior study for comparison. FINDINGS: There are no displaced acute left rib fractures identified. There is no soft tissue abnor mality seen. There is subacute left humeral fracture, can't exclude reinjury to this. There is an old left 4th rib fracture. Thoracolumbar Miller rods. Right-sided portacatheter. Cervical fusion bandar dware. Consider educating patient that even if there is a radiographically occult nondisplaced rib fracture, there is no specific treatment other than to refrain from activity that prevents healing. IMPRESSION: 1. Subacute left humeral shaft fracture. 2. Old left 4th and 7th rib fractures. Reviewed, dictated and finalized at location A.
[2020-08-11 21:43] VITALS: BP 140/78; PULSE 91; RESP 20; TEMP 36.5; O2SAT 98
--- NOTE | 2020-08-11 21:49 | ED.FALL ---
HPI - Fall General Chief Complaint: Fall Stated Complaint: I HURT ALL OVER AFTER A SZ Time Seen by Provider: 08/11/20 21:48 Source: patient Mode of arrival: ambulatory Limitations: no limitations History of Present Illness HPI Narrative: Patient is a 64-year-old female with a history of alcohol abuse, seizure disorder who presents shortly after being discharged for evaluation of left-sided rib pain following a fall. Patient states she had a seizure, falling onto her left side. She is reporting left-sided rib pain. She denies any cough or shortness of breath. No central chest pain or pressure. Patient denies any bruising or laceration. She denies any head trauma, shoulder pain, elbow pain. No hip pain. Patient is ambulatory. No postictal state. Patient is alert and oriented to person, place, to time. No tongue biting or urinary incontinence. Related Data Home Medications Medication Instructions Recorded Confirmed levetiracetam [Keppra] 1,500 mg PO BID 07/21/20 07/21/20 lorazepam 0.5 mg PO TID PRN 07/21/20 07/21/20 Allergies Allergy/AdvReac Type Severity Reaction Status Date / Time Sulfa (Sulfonamide Allergy Unknown Unknown Verified 08/11/20 14:57 Antibiotics) Review of Systems Review of Systems: Narrative: CONSTITUTIONAL: Denies fever, chills, or sweats. EYES: Denies visual changes ENT: Denies rhinorrhea, congestion CARDIOVASCULAR: Denies chest pain, reports left rib pain, denies palpitations or edema RESPIRATORY: Denies cough or dyspnea. GASTROINTESTINAL: Denies abdominal pain, nausea, vomiting SKIN: Denies rash or itching. MUSCULOSKELETAL: Denies back pain, denies hip pain NEUROLOGIC: Denies headache, numbness, or weakness. [facility] Past Medical History Medical History (Updated 08/12/20 @ 00:23 by Geneva Barrett MD) Anxiety Back pain with history of spinal surgery Miller rods placed due to scoliosis Colon cancer Depression Fracture of right ankle, lateral malleolus Nondisplaced comminuted fracture lateral malleolus 11/13/2019 Frequent falls GERD (gastroesophageal reflux disease) GI bleed With history of gastric and duodenal ulcer 09/2018 Hepatitis C Has a teenage History of colon cancer Status post sigmoid resection 05/05/2017 Hx of seizure disorder With normal EEG and MRI demonstrating arachnoid cyst in the left temporal lobe with chronic small-vessel ischemic changes in November 2016 IBS (irritable bowel syndrome) 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 Surgical History Surgical History History of bilateral carpal tunnel release History of bone graft from LLE to repair bilateral wrist fractures History of colon resection sigmoid due to colon cancer April 2017 History of cystoscopy with stents March 2017 Hx of section Port-A-Cath in place Scoliosis deformity of spine With surgical repair Wrist fracture, bilateral Requiring bone graft Family History Family History Mother Diabetes mellitus Hypertension COPD (chronic obstructive pulmonary disease) Father MVA (motor vehicle accident) Alcohol abuse Sibling Drug overdose Social History Social History Social History: Primary care physician: Dr. Carolyn Ibarra Code status: Full code per EMR Smoking packs per day: 1 Smoking cigarettes per day: 20.0 Years smoked: 47 Smoking pack-years: 47.00 Smoking status: Current every day smoker Tobacco type: cigarettes Second hand tobacco smoke exposure: Yes Alcohol intake: current Drinks per week: 5 Substance use: unknown Substance use type: does not use Additional living arrangements comments: Pt lives in an apartment complex. Additional occupation/education comments: The patient reports that she is disabled due to her seizures.
--- NOTE | 2020-08-11 22:12 | ECG_ITS ---
Measurements Intervals [place] Rate: 80 P: 72 TN: 148 QRS: 76 QRSD: 74 T: 59 QT: 374 QTc: 432 Interpretive Statements SINUS RHYTHM LOW QRS VOLTAGE IN PRECORDIAL LEADS BORDERLINE R WAVE PROGRESSION, ANTERIOR LEADS BASELINE ARTIFACT- I, II, III, AVR, AVL, AVF, V3 BORDERLINE ECG Electronically Signed On 08-12-2020 7:32:03 CDT by Jules Workman D.O.
[2020-08-11] MEDS: KETOROLAC (*BKC) 60 MG/2 ML VIAL 30 MG IM (22:23)
--- NOTE | 2020-08-11 23:25 | PC.NURSE ---
Report received from FRANSISCA Fay. Pt appears to be sleeping on the stretcher at this time. When approach bed, begins to c/o pain , states it hurts under my left boob. It happened when I went outside .
--- NOTE | 2020-08-11 23:55 | PC.NURSE ---
Dr. Barrett aware of pt request for more pain medications.
[2020-08-12 00:02] VITALS: BP 113/62; PULSE 76; RESP 16; O2SAT 97
[2020-08-12 00:05] LABS: Add Urine Microscopic? YES; Appearance Urine Clear (Clear); Bilirubin Urine Negative (Negative); Blood Urine Negative (Negative); Color Urine Yellow (Yellow); Glucose Urine UA Negative (Negative); Ketones Urine Negative (Negative); Leukocyte Esterase Ur Trace LEU/UL (Negative); Mucus Urine Rare /lpf; Nitrate Urine Negative (Negative); Protein Urine Negative (Negative); RBC Urine 0-2 /hpf (0-2); Specific Grav Ur 1.027 (1.001-1.035); Squamous Epithelial Cell Urine Many /hpf (Few)
[2020-08-12 00:55] VITALS: BP 128/63; PULSE 84; RESP 16; O2SAT 95
== END 2020-08-12 00:46 | disposition home or self-care (01) ==
PROVIDERS: Emergency Provider Emergency Medicine; PCP Family Medicine
DX: G40.909 Epilepsy, unspecified, not intractable, without status epilepticus (principal); F41.9 Anxiety disorder, unspecified; F32.9 Major depressive disorder, single episode, unspecified; Z85.038 Personal history of other malignant neoplasm of large intestine; K21.9 Gastro-esophageal reflux disease without esophagitis; Z86.19 Personal history of other infectious and parasitic diseases; K58.9 Irritable bowel syndrome, unspecified; Z90.49 Acquired absence of other specified parts of digestive tract; F17.210 Nicotine dependence, cigarettes, uncomplicated; S20.212A Contusion of left front wall of thorax, initial encounter; R94.31 Abnormal electrocardiogram [ECG] [EKG]; W18.39XA Other fall on same level, initial encounter; R82.998 Other abnormal findings in urine
CPT/HCPCS: 71100; 81001; 87086; 93005; 96372; 99283; J1885

== ENCOUNTER 2020-08-24 17:14 | Emergency (ER) | payer MEDICARE, MEDICAID, SELFPAY ==
[2020-08-24 17:20] VITALS: BP 121/58; PULSE 78; RESP 17; TEMP 36.8; O2SAT 97
[2020-08-24 17:28] VITALS: BP 105/69; PULSE 106; RESP 22; O2SAT 95
[2020-08-24] MEDS: HALOPERIDOL LACTATE 5 MG/ML VIAL 10 MG (17:33)
[2020-08-24] MEDS: LACTATED RINGERS 1,000 ML 999 ML IV CONT ×2 (18:25→21:09)
[2020-08-24] MEDS: THIAMINE HCL 200 MG/2 ML VIAL IV PUSH (18:25)
[2020-08-24 18:29] VITALS: BP 93/51; PULSE 113; RESP 24; O2SAT 99
[2020-08-24 18:38] LABS: Basophils Absolute Auto 0.1 K/mm3 (0.0-0.1); Basophils Percent Auto 0.9 % (0.2-1.2); Eosinophils Absolute Auto 0.1 K/mm3 (0-0.3); Eosinophils Percent Auto 0.9 % (0-4.4); Hematocrit 44.6 % (37.0-47.0); Hemoglobin 14.3 g/dL (12.0-15.0); Immature Granulocyte Absolute 0.11 K/mm3 (0.00-0.031); Immature Granulocyte Percent A 0.9 % (0-0.5); Lymphocytes Percent Auto 37.9 % (18.3-44.2); Mean Corpuscular HGB Conc 32.1 g/dl (32-36); Mean Corpuscular Hemoglobin 31.2 pg (26-34); Mean Corpuscular Volume 97.4 fl (80-100); Mean Platelet Volume 9.1 fl (7.4-10.4); Monocytes Absolute Auto 0.9 K/mm3 (0.1-0.6); Monocytes Percent Auto 7.7 % (2.6-8.5); Neutrophils Absolute Auto 6.3 K/mm3 (1.3-6.7); Neutrophils Percent Auto 51.7 % (45.5-73.1); Platelet Count Result 318 k/mm3 (150-375); Red Blood Count 4.58 M/mm3 (4.2-5.4); Red Cell Distribution Width 13.3 % (11.5-14.5); White Blood Count 12.1 K/mm3 (4.5-10.0)
--- NOTE | 2020-08-24 18:41 | ED.GENADULT ---
HPI - General Adult General Chief complaint: Alcohol <Diogo Mon MD - Last Filed: 08/24/20 19:47> Stated complaint: ETOH, AMS <Diogo Mon MD - Last Filed: 08/24/20 19:47> Time Seen by Provider: 08/24/20 17:39 <Digoo Mon MD - Last Filed: 08/24/20 19:47> Source: patient and EMS <Diogo Mon MD - Last Filed: 08/24/20 19:47> Mode of arrival: EMS <Diogo Mon MD - Last Filed: 08/24/20 19:47> Limitations: clinical condition and intoxication <Diogo Mon MD - Last Filed: 08/24/20 19:47> History of Present Illness HPI narrative: 64-year-old female Numerous recent visits Apparently EMS was summoned by [place] police due to the patient being publicly intoxicated and wandering around outside On arrival here she seems to be drunk and belligerent and is taking random swings at staff whilst cursing them out There does not seem to be any sign or suspicion of a traumatic injury of any sort <Diogo Mon MD - Last Filed: 08/24/20 19:47> Related Data Home medications: Home Medications Medication Instructions Recorded Confirmed levetiracetam [Keppra] 1,500 mg PO BID 07/21/20 07/21/20 lorazepam 0.5 mg PO TID PRN 07/21/20 07/21/20 <Diogo Mon MD - Last Filed: 08/24/20 19:47> Allergies/adverse reactions: Allergies Allergy/AdvReac Type Severity Reaction Status Date / Time Sulfa (Sulfonamide Allergy Unknown Unknown Verified 08/24/20 17:22 Antibiotics) <Diogo Mon MD - Last Filed: 08/24/20 19:47> Review of Systems Review of Systems: ROS unobtainable: Yes unobtainable due to medical condition, unobtainable due to mental status and other (Intoxicated/sedated) <Diogo Mon MD - Last Filed: 08/24/20 19:47> PMFSH Past Medical History Medical History: Medical History (Updated 08/25/20 @ 06:12 by Ralph Loera MD) Anxiety Back pain with history of spinal surgery Miller rods placed due to scoliosis Colon cancer Depression Fracture of right ankle, lateral malleolus Nondisplaced comminuted fracture lateral malleolus 11/13/2019 Frequent falls GERD (gastroesophageal reflux disease) GI bleed With history of gastric and duodenal ulcer 09/2018 Hepatitis C Has a teenage History of colon cancer Status post sigmoid resection 05/05/2017 Hx of seizure disorder With normal EEG and MRI demonstrating arachnoid cyst in the left temporal lobe with chronic small-vessel ischemic changes in November 2016 IBS (irritable bowel syndrome) 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 <Diogo Mon MD - Last Filed: 08/24/20 19:47> Surgical History Surgical History: Surgical History History of bilateral carpal tunnel release History of bone graft from LLE to repair bilateral wrist fractures History of colon resection sigmoid due to colon cancer April 2017 History of cystoscopy with stents March 2017 Hx of section Port-A-Cath in place Scoliosis deformity of spine With surgical repair Wrist fracture, bilateral Requiring bone graft <Diogo Mon MD - Last Filed: 08/24/20 19:47> Family History Family History: Family History Mother Diabetes mellitus Hypertension COPD (chronic obstructive pulmonary disease) Father MVA (motor vehicle accident) Alcohol abuse Sibling Drug overdose <Diogo Mon MD - Last Filed: 08/24/20 19:47> Social History Social History: Social History Social History: Primary care physician: Dr. Carolyn Ibarra Code status: Full code per EMR Smoking packs per day: 1 Smoking cigarettes per day: 20.0 Years smoked: 47 Smoking pack-years: 47.00 Smoking status: Current every day smoker Tobacco type: cigarettes Second hand tobacco smoke exposure: Yes
[2020-08-24 18:50] LABS: Alanine Aminotransferase 38 U/L (4-35); Albumin Level 4.1 g/dL (3.5-5.1); Alkaline Phosphatase 264 U/L (38-126); Anion Gap 17 mmol/L (8-16); Aspartate Amino Transferase 55 U/L (14-36); Bilirubin,Total 0.1 mg/dL (0.2-1.3); Blood Urea Nitrogen 13 mg/dL (7-17); Carbon Dioxide 19 mmol/L (22-30); Chloride 111 mmol/L (98-107); Estimated Glomerular Filt Rate > 60; Glucose 151 mg/dL (65-105); Potassium 3.2 mmol/L (3.4-5.0); Sodium 147 mmol/L (137-145)
--- NOTE | 2020-08-24 18:52 | ECG_ITS ---
Measurements Intervals [place] Rate: 105 P: 70 [place]: 151 QRS: 82 QRSD: 94 T: 78 QT: 393 QTc: 520 Interpretive Statements SINUS TACHYCARDIA BORDERLINE T WAVE ABNORMALITY- ANT/HIGH LAT LEADS BASELINE ARTIFACT- V1, V3-V4 BORDERLINE ECG Electronically Signed On 08-24-2020 19:37:11 CDT by Jules Workman D.O.
[2020-08-24 19:04] LABS: Amphetamine Screen Urine Positive (Negative); Barbiturate Screen Urine Negative (Negative); Benzodiazepines Screen Urine Negative (Negative); Cannabinoid Screen Urine Negative (Negative); Cocaine Screen Urine Negative (Negative); Methadone Screen Urine Negative (Negative); Opiate Screen Urine Negative (Negative); Phencyclidine Screen Urine Negative (Negative)
[2020-08-24 19:04] LABS: Glucose Point of Care 147 (65-105)
[2020-08-24 19:26] LABS: Ethanol 453 mg/dL (<10)
[2020-08-24] MEDS: KCL 20 MEQ/SW 100 ML 100 ML 50 MEQ IVPB (20:16)
[2020-08-24 20:52] VITALS: BP 104/68; PULSE 94; RESP 20; O2SAT 97
[2020-08-24] MEDS: MAGNESIUM SULF 2 GM/WATER 50ML 2 GM/50 ML BAG IVPB (21:09)
[2020-08-24 23:29] VITALS: BP 108/63; PULSE 92; RESP 18; O2SAT 96
[2020-08-25 02:23] VITALS: BP 104/67; PULSE 88; RESP 18; O2SAT 96
[2020-08-25 06:17] VITALS: BP 106/68; PULSE 82; RESP 18; TEMP 36.6; O2SAT 96
== END 2020-08-25 06:18 | disposition home or self-care (01) ==
PROVIDERS: Emergency Provider Emergency Medicine; PCP Family Medicine
DX: F10.129 Alcohol abuse with intoxication, unspecified (principal); F41.9 Anxiety disorder, unspecified; Z85.038 Personal history of other malignant neoplasm of large intestine; K21.9 Gastro-esophageal reflux disease without esophagitis; Z86.19 Personal history of other infectious and parasitic diseases; Z90.49 Acquired absence of other specified parts of digestive tract; G40.909 Epilepsy, unspecified, not intractable, without status epilepticus; K58.9 Irritable bowel syndrome, unspecified; F17.210 Nicotine dependence, cigarettes, uncomplicated; Y90.8 Blood alcohol level of 240 mg/100 ml or more; R00.0 Tachycardia, unspecified; R94.31 Abnormal electrocardiogram [ECG] [EKG]
CPT/HCPCS: 36415; 51701; 80053; 80307; 85025; 93005; 96361; 96365; 96367; 96372; 96375; 99284; J1630; J3411; J3475; J3480; J7120

== ENCOUNTER 2020-09-05 12:56 | Emergency (ER) | payer MEDICARE, MEDICAID, SELFPAY ==
--- NOTE | ~2020-09-05 | XR_ITS ---
EXAMINATION: XR ankle RT min 3V EXAM DATE: 09/05/2020 13:36 INDICATION: Initial encounter following injury, with pain of the right ankle. TECHNIQUE: Right ankle frontal, lateral and oblique projections obtained and reviewed. Comparison is made to prior examination from 11/13/2019. FINDINGS: The right ankle mortise appears intact. There are no acute fractures or dislocations iden tified. Sequela from prior lateral malleolar tip avulsion injury. There is no subcutaneous gas. There is soft tissue swelling over the ankle anterolaterally. There are no radiopaque foreign bodies. IMPRESSION: 1. Right ankle exam without acute osseous findings. 2. Soft tissue swelling. Reviewed, dictated and finalized at location A. NESS RISK ANALYST
--- NOTE | ~2020-09-05 | CT_ITS ---
EXAMINATION: CT brain wo con DATE: 09/05/2020 15:49 INDICATION: Head injury. TECHNIQUE: Computed tomography (CT) of the head was performed without intravenous contrast. The mA wa s adjusted according to patient size. Iterative reconstruction technique was employed. The dose-lengt h product was 605.33 mGy-cm. COMPARISON: Head CT 08/11/2020 FINDINGS: There are scattered areas of low attenuation in the cerebral white matter. There is no intr acranial hemorrhage, acute infarction, or abnormal intracranial mass lesion. The ventricles are marge l in size. There is mild mucosal thickening in the paranasal sinuses. The mastoid air cells are marge l. The orbits are normal. IMPRESSION: 1. Stable moderate nonspecific cerebral white matter disease, which likely represents chronic small v essel ischemic disease. Reviewed, dictated and finalized at location B. CARE CONSULTANT IMPRESSION: 1. Stable moderate nonspecific cerebral white matter disease, which likely repr esents chronic small vessel ischemic disease.
--- NOTE | ~2020-09-05 | CT_ITS ---
EXAMINATION: CT cervical spine wo con DATE: 09/05/2020 15:49 INDICATION: Neck pain. Head injury. TECHNIQUE: Computed tomography (CT) of the cervical spine was performed without intravenous contrast. Automated exposure control and iterative reconstruction technique were employed. The dose-length pro duct was 374.01 mGy-cm. COMPARISON: CT cervical spine 08/04/2020 FINDINGS: There is 22 degrees levoscoliosis of cervical spine. Vertebral body heights are normal. The re are changes of anterior fusion procedure from C5 to C7 with healed interbody bone graft and anteri or plate and screws. There is mildly decreased disc height at C4-C5 and severely decreased disc heigh t at C7-T1. There is an old healed fracture of medial right clavicle. The following disc levels are s pecifically discussed: C2-C3: There is no uncovertebral joint osteoarthritis. There is severe left facet joint osteoarthriti s. There is mild left neural foraminal stenosis. There is no central canal stenosis. C3-C4: There is no uncovertebral joint osteoarthritis. There is severe bilateral facet joint osteoart hritis. There is mild right neural foraminal stenosis. There is mild central canal stenosis. C4-C5: There is mild bilateral uncovertebral joint osteoarthritis. There is severe right facet joint osteoarthritis. There is mild right neural foraminal stenosis. There is mild central canal stenosis. C5-C6: There is no uncovertebral joint hypertrophy. There is no facet joint osteoarthritis. There is no neural foraminal stenosis. There is no central canal stenosis. C6-C7: There is mild left uncovertebral joint hypertrophy. There is no facet joint osteoarthritis. Th ere is mild left neural foraminal stenosis. There is mild central canal stenosis. C7-T1: There is severe bilateral uncovertebral joint osteoarthritis. There is moderate right and mild left facet joint osteoarthritis. There is mild bilateral neural foraminal stenosis. There is mild ce ntral canal stenosis. IMPRESSION: 1. No fracture. 2. Severe cervical spondylosis. 3. Anterior fusion procedure from C5 to C7. Reviewed, dictated and finalized at location B. LEVELER
[2020-09-05 13:11] VITALS: BP 100/75; PULSE 102; RESP 16; TEMP 36.6; O2SAT 95
--- NOTE | 2020-09-05 13:30 | PC.NURSE ---
patient brought to this ED today via EMS after ground level fall. see triage notes. patient is intoxicated. states she tripped. c/o pain in right foot and right ankle. mild swelling noted. no deformity noted. alert but intoxicated. patient is well known to this ED for frequent visits and being intoxicated.
--- NOTE | 2020-09-05 13:56 | ED.FALL ---
HPI - Fall General Chief Complaint: Fall Stated Complaint: fall, etoh Time Seen by Provider: 09/05/20 13:36 Source: patient Mode of arrival: ambulatory Limitations: no limitations History of Present Illness HPI Narrative: Patient is a 64-year-old female complaining of right ankle pain after she slipped and fall and twisted her right ankle. Patient states her pain is a 6 out of 10, aching, nonradiating. Denies any other pain or injury. Denies head, neck, chest, back, abdomen, or any other extremity pain/injury. Related Data Home Medications Medication Instructions Recorded Confirmed levetiracetam [Keppra] 1,500 mg PO BID 07/21/20 07/21/20 lorazepam 0.5 mg PO TID PRN 07/21/20 07/21/20 Allergies Allergy/AdvReac Type Severity Reaction Status Date / Time Sulfa (Sulfonamide Allergy Unknown Unknown Verified 08/24/20 17:22 Antibiotics) Review of Systems Review of Systems: All systems reviewed & are unremarkable except as noted in HPI and below Constitutional: Constitutional: Denies body ache(s), Denies chills, Denies excessive sweating, Denies fatigue, Denies fever(s), Denies headache(s), Denies lethargy, Denies malaise, Denies weakness and Denies weight loss Eyes: Eyes: Denies blurry vision, Denies change in vision and Denies loss of vision ENT: Denies dizziness, Denies ear discharge, Denies headache(s), Denies lip swelling, Denies epistaxis, Denies nasal congestion, Denies neck pain, Denies throat swelling and Denies tongue swelling Cardiovascular: Cardiovascular: Denies chest pain, Denies chest pain at rest, Denies chest pain with activity, Denies diaphoresis, Denies rapid heart rate, Denies edema, Denies irregular heart rhythm, Denies lightheadedness, Denies palpitations, Denies dyspnea and Denies dyspnea on exertion Respiratory: Respiratory: Denies chest congestion, Denies cough, Denies hemoptysis, Denies dyspnea and Denies dyspnea on exertion Gastrointestinal: Gastrointestinal: Denies abdominal pain, Denies melena, Denies hematochezia, Denies diarrhea, Denies nausea, Denies vomiting and Denies hematemesis Musculoskeletal: Musculoskeletal: Denies neck pain and Denies numbness Neurologic: Denies Abnormal speech present, Denies abnormal gait, Denies confusion, Denies dizziness, Denies headache(s), Denies focal weakness, Denies loss of vision, Denies numbness, Denies Other visual disturbances, Denies Sensory deficit (Neuro) and Denies weakness Psychiatric: Psychiatric: Denies confusion, Denies depression, Denies auditory hallucinations, Denies homicidal ideation and Denies suicidal ideation Endocrine: Endocrine: Denies cold intolerance, Denies excessive sweating, Denies fatigue, Denies heat intolerance and Denies palpitations Hematologic/Lymphatic: Hematologic/Lymphatic: Denies easy bleeding and Denies easy bruising Allergic/Immunologic: Allergic/Immunologic: Denies lip swelling, Denies throat swelling and Denies tongue swelling [facility] Past Medical History Medical History (Updated 09/05/20 @ 17:05 by Adal Patel MD) Anxiety Back pain with history of spinal surgery Miller rods placed due to scoliosis Colon cancer Depression Fracture of right ankle, lateral malleolus Nondisplaced comminuted fracture lateral malleolus 11/13/2019 Frequent falls GERD (gastroesophageal reflux disease) GI bleed With history of gastric and duodenal ulcer 09/2018 Hepatitis C Has a teenage History of colon cancer Status post sigmoid resection 05/05/2017 Hx of seizure disorder With normal EEG and MRI demonstrating arachnoid cyst in the left temporal lobe with chronic small-vessel ischemic changes in November 2016 IBS (irritable bowel syndrome) 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 Surgical History Surgical History History of bilateral carpal tunnel release History of bone graft from LLE to repair bilateral wrist fractures History of colon rese
--- NOTE | 2020-09-05 13:59 | PC.NURSE ---
surgical instrument technician sitting with patient due to intoxicatuon and unstable gait. patient attempting to get OOB. patient attempting to go outside to smoke. now resting on stretcher. appears to be comfortable. appears to be sleeping. had portable xray of right foot and right ankle.
--- NOTE | 2020-09-05 14:15 | PC.NURSE ---
patient pulled SL out. tech at bedside. waiting for further orders from provider.
[2020-09-05] MEDS: KETOROLAC 30 MG/ML VIAL (*BKC) IV PUSH (16:11)
== END 2020-09-05 18:22 | disposition home or self-care (01) ==
PROVIDERS: Emergency Provider Emergency Medicine; PCP Family Medicine
DX: S09.90XA Unspecified injury of head, initial encounter (principal); S93.402A Sprain of unspecified ligament of left ankle, initial encounter; F10.10 Alcohol abuse, uncomplicated; F41.9 Anxiety disorder, unspecified; F32.9 Major depressive disorder, single episode, unspecified; Z85.038 Personal history of other malignant neoplasm of large intestine; K21.9 Gastro-esophageal reflux disease without esophagitis; W01.0XXA Fall on same level from slipping, tripping and stumbling without subsequent striking against object, initial encounter
CPT/HCPCS: 70450; 72125; 73610; 96374; 99284; J1885

== ENCOUNTER 2020-10-02 09:14 | Emergency (ER) | payer MEDICARE, MEDICAID, SELFPAY ==
--- NOTE | ~2020-10-02 | XR_ITS ---
EXAMINATION: XR ribs LT 2V w CXR 2V DATE: 10/02/2020 10:01 INDICATION: Left-sided rib pain. Fall. TECHNIQUE: Frontal and lateral views of the chest and 3 views of the left ribs were obtained. COMPARISON: Left rib radiographs 08/11/2020, left shoulder radiographs 07/14/20 FINDINGS: CHEST TWO VIEWS: There is mild atelectasis in left lower lung zone. No pleural effusion or pneumothor ax. The heart size is normal. There is a right subclavian port with tip at superior cavoatrial juncti on. There changes of anterior fusion procedure in cervical spine. There are changes of posterior fusi on procedure in thoracolumbar spine. There are changes of anterior fusion procedure in lumbar spine. LEFT RIBS: There is old healed fracture of left seventh rib. There is an old healed fracture of left fourth rib. There is a healing fracture of diaphysis of left humerus with malunion. IMPRESSION: 1. No acute rib fracture. 2. Healing fracture of diaphysis of left humerus with malunion. Reviewed, dictated and finalized at location B. SELING AIDE
--- NOTE | ~2020-10-02 | XR_ITS ---
EXAMINATION: XR ankle RT min 3V DATE: 10/02/2020 10:01 INDICATION: Right ankle pain post fall TECHNIQUE: Anteroposterior, oblique, mortise, and lateral views of the right ankle were obtained. COMPARISON: 09/05/2020 FINDINGS: There is a subtle linear lucency at the tip of the lateral malleolus with associated cortical discont inuity along its lateral margin consistent with a minimally displaced avulsion fracture. Chronic appe aring small amount of heterotopic ossification at the anterior tip of the lateral malleolus likely se quela of an earlier avulsion injury. Alignment remains near-anatomic with congruent ankle mortise. No other fractures identified. Mild osteoarthritis at the tibiotalar, navicular cuneiform and a few of the tarsal metatarsal joints. Soft tissue swelling about the lateral malleolus. IMPRESSION: 1. Mildly displaced avulsion fracture at the tip of the lateral malleolus superimposed over images of an earlier avulsion injury. Reviewed, dictated and finalized at location A. RVISOR FISH HATCHERY IMPRESSION: 1. Mildly displaced avulsion fracture at the tip of the lateral malleolus super imposed over images of an earlier avulsion injury.
[2020-10-02 09:25] VITALS: BP 127/82; PULSE 76; RESP 18; TEMP 37.2; O2SAT 99
--- NOTE | 2020-10-02 09:48 | ED.FALL ---
HPI - Fall General Chief Complaint: Back Pain/Injury Stated Complaint: fall Time Seen by Provider: 10/02/20 09:22 Source: patient Mode of arrival: EMS Limitations: no limitations History of Present Illness HPI Narrative: This is a 64-year-old female that presents the emergency department for left-sided rib pain after a fall last night. Reports she tripped and fell into her dresser. Reports since she has had left-sided rib pain. Also reports rolling her right ankle as well. Denies hitting her head, loss of consciousness, prodromal symptoms, weakness, or numbness. Related Data Home Medications Medication Instructions Recorded Confirmed levetiracetam [Keppra] 1,500 mg PO BID 07/21/20 07/21/20 lorazepam 0.5 mg PO TID PRN 07/21/20 07/21/20 Allergies Allergy/AdvReac Type Severity Reaction Status Date / Time Sulfa (Sulfonamide Allergy Unknown Unknown Verified 08/24/20 17:22 Antibiotics) Review of Systems Review of Systems: Narrative: CONSTITUTIONAL: Denies fever EYES: Denies visual changes CARDIOVASCULAR: Reports chest/rib pain RESPIRATORY: Denies dyspnea. GASTROINTESTINAL: Denies vomiting MUSCULOSKELETAL: Reports joint pain, and myalgia. NEUROLOGIC: Denies headache, numbness, or weakness. All systems reviewed & are unremarkable except as noted in HPI and below PMFSH Past Medical History Medical History (Updated 10/02/20 @ 11:26 by Mckenna Moeller PA-C) Anxiety Back pain with history of spinal surgery Miller rods placed due to scoliosis Colon cancer Depression Fracture of right ankle, lateral malleolus Nondisplaced comminuted fracture lateral malleolus 11/13/2019 Frequent falls GERD (gastroesophageal reflux disease) GI bleed With history of gastric and duodenal ulcer 09/2018 Hepatitis C Has a teenage History of colon cancer Status post sigmoid resection 05/05/2017 Hx of seizure disorder With normal EEG and MRI demonstrating arachnoid cyst in the left temporal lobe with chronic small-vessel ischemic changes in November 2016 IBS (irritable bowel syndrome) 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 Surgical History Surgical History History of bilateral carpal tunnel release History of bone graft from LLE to repair bilateral wrist fractures History of colon resection sigmoid due to colon cancer April 2017 History of cystoscopy with stents March 2017 Hx of section Port-A-Cath in place Scoliosis deformity of spine With surgical repair Wrist fracture, bilateral Requiring bone graft Family History Family History Mother Diabetes mellitus Hypertension COPD (chronic obstructive pulmonary disease) Father MVA (motor vehicle accident) Alcohol abuse Sibling Drug overdose Social History Social History Social History: Primary care physician: Dr. Carolyn Ibarra Code status: Full code per EMR Smoking packs per day: 1 Smoking cigarettes per day: 20.0 Years smoked: 47 Smoking pack-years: 47.00 Smoking status: Current every day smoker Tobacco type: cigarettes Second hand tobacco smoke exposure: Yes Alcohol intake: current Drinks per week: 5 Substance use: unknown Substance use type: does not use Additional living arrangements comments: Pt lives in an apartment complex. Additional occupation/education comments: The patient reports that she is disabled due to her seizures. Gender identity (if verbalized by the patient): Female Spiritual care concerns: No Agree to blood products: Yes Exam Narrative: Exam Narrative: GENERAL: Well-appearing, well-nourished, and in no acute distress. HEAD: Normocephalic, atraumatic. EYES: PERRLA and EOMI. ENT: Nares clear, no rhinorrhea or epistaxis. Mucous membranes moist. Oropharynx without tonsill
[2020-10-02] MEDS: KETOROLAC (*BKC) 60 MG/2 ML VIAL IM (10:32)
[2020-10-02] MEDS: ACETAMINOPHEN 500 MG TABLET 1000 MG PO (10:32)
[2020-10-02 11:47] VITALS: BP 136/78; PULSE 75; RESP 15; O2SAT 100
[2020-10-02 12:54] LABS: Vitamin D 25 Hydroxy < 12.8 ng/mL
== END 2020-10-02 11:48 | disposition home or self-care (01) ==
PROVIDERS: Physician Assistant; Emergency Provider Emergency Medicine; PCP Family Medicine
DX: S82.62XA Displaced fracture of lateral malleolus of left fibula, initial encounter for closed fracture (principal); W01.190A Fall on same level from slipping, tripping and stumbling with subsequent striking against furniture, initial encounter; S20.212A Contusion of left front wall of thorax, initial encounter; F17.210 Nicotine dependence, cigarettes, uncomplicated; K21.9 Gastro-esophageal reflux disease without esophagitis; G40.909 Epilepsy, unspecified, not intractable, without status epilepticus; G62.9 Polyneuropathy, unspecified; Z85.038 Personal history of other malignant neoplasm of large intestine; F41.9 Anxiety disorder, unspecified
CPT/HCPCS: 29515; 36415; 71046; 71100; 73610; 82306; 96372; 99284; A9270; J1885

== ENCOUNTER 2020-10-26 20:52 | Emergency (ER) | payer MEDICARE, MEDICAID, SELFPAY ==
[2020-10-26] VITALS (15 sets, daily range): BP systolic 111–134; BP diastolic 73–91; PULSE 90–108; RESP 13–22; TEMP 36.6; O2SAT 94–98
--- NOTE | ~2020-10-26 | CT_ITS ---
EXAMINATION: CT brain wo con DATE: 10/26/2020 22:05 INDICATION: Altered mental status TECHNIQUE: Computed tomography (CT) of the head was performed without intravenous contrast. Sagittal and coronal reconstructions were performed. The mA was adjusted according to patient size. Iterative reconstruction technique was employed. The dose-length product was 1210.67 mGy-cm. COMPARISON: head CT dated 09/05/2020 FINDINGS: There is moderate scattered white matter hypoattenuation consistent with chronic small vessel ischemi c disease. No acute intracranial hemorrhage, acute infarction or abnormal extra axial fluid collectio n. Ventricles are normal and symmetric. No mass/mass effect. Mild mucosal thickening in the right eth moid and sphenoid sinuses. The visualized portions of the orbits and mastoid air cells are normal. IMPRESSION: 1. Stable appearance of moderate scattered nonspecific white matter hypoattenuation consistent with c hronic small vessel ischemic disease. No acute intracranial process. Reviewed, dictated and finalized at location A. ESTATE MARKETING COORDINATOR IMPRESSION: 1. Stable appearance of moderate scattered nonspecific white matter hypoattenua tion consistent with chronic small vessel ischemic disease. No acute intracrani al process.
--- NOTE | ~2020-10-26 | XR_ITS ---
EXAMINATION: XR chest 1V portable DATE: 10/26/2020 21:51 INDICATION: Transient alteration of awareness TECHNIQUE: frontal view of the chest was obtained. COMPARISON: Chest radiograph dated 10/02/2020 FINDINGS: Nipple shadow projects over the right lower lung zone. No other airspace opacities, pulmonary edema, pleural effusion or pneumothorax. Cardiomediastinal silhouette is within normal limits accounting for AP technique and mild leftward rotation of the patient. Right subclavian central venous port cathete r with distal tip at the caudal superior vena cava. S-shaped thoracolumbar scoliosis with instrumente d anterior spinal fusion in the lower cervical spine and instrumented posterior spinal fusion at the lumbar and lower thoracic spine. IMPRESSION: 1. No acute cardiopulmonary disease. Reviewed, dictated and finalized at location A. OFFICE REPRESENTATIVE
--- NOTE | 2020-10-26 21:08 | ECG_ITS ---
Measurements Intervals [place] Rate: 108 P: 76 NC: 127 QRS: 53 QRSD: 78 T: 133 QT: 379 QTc: 509 Interpretive Statements SINUS TACHYCARDIA POSSIBLE LEFT ATRIAL ENLARGEMENT T WAVE ABNORMALITY IN ANT/HIGH LAT LEADS- CONSIDER ISCHEMIA BASELINE ARTIFACT- AVR, AVL, AVF, V3-V5 ABNORMAL ECG Electronically Signed On 10-27-2020 8:06:36 PROBATE [place] by Jules Workman D.O.
[2020-10-26 21:19] LABS: Base Excess ABG -6.5 mEq/l (+/-2.0); Device ROOM AIR; Fractional Inspired Oxygen 21 %; Modified Allen's Test Pass; Oxygen Content ABG 20.5 %vol (16.0-22.0); Oxygen Saturation ABG 96.9 % (95.0-100.0); Oxyhemoglobin 95.7 % THb (90.0-100.0); PCO2 ABG 25.4 mmHg (35.0-45.0); PO2 ABG 87.3 mmHg (80.0-100.0); PO2 FiO2 Ratio Arterial Blood 4.16 %; Site Drawn LEFT RADIAL; Total Hemoglobin 15.2 g/dL (12.0-18.0); pH ABG 7.418 (7.350-7.450)
[2020-10-26] MEDS: SODIUM CHLORIDE 0.9% IV 1,000 ML 999 ML IV CONT (21:29)
[2020-10-26] MEDS: ONDANSETRON INJ 4 MG/2 ML VIAL IV PUSH (21:30)
[2020-10-26 21:32] LABS: Basophils Absolute Auto 0.1 K/mm3 (0.0-0.1); Basophils Percent Auto 0.7 % (0.2-1.2); Eosinophils Percent Auto 0.2 % (0-4.4); Hematocrit 46.1 % (37.0-47.0); Immature Granulocyte Absolute 0.07 K/mm3 (0.00-0.031); Immature Granulocyte Percent A 0.5 % (0-0.5); Lymphocytes Absolute Auto 4.11 K/mm3 (0.9-3.2); Lymphocytes Percent Auto 31.1 % (18.3-44.2); Mean Corpuscular HGB Conc 32.5 g/dl (32-36); Mean Corpuscular Hemoglobin 31.3 pg (26-34); Mean Corpuscular Volume 96.2 fl (80-100); Mean Platelet Volume 9.4 fl (7.4-10.4); Monocytes Absolute Auto 0.8 K/mm3 (0.1-0.6); Monocytes Percent Auto 6.1 % (2.6-8.5); Neutrophils Absolute Auto 8.1 K/mm3 (1.3-6.7); Neutrophils Percent Auto 61.4 % (45.5-73.1); Platelet Count Result 296 k/mm3 (150-375); Red Blood Count 4.79 M/mm3 (4.2-5.4); Red Cell Distribution Width 14.6 % (11.5-14.5); White Blood Count 13.2 K/mm3 (4.5-10.0)
[2020-10-26 21:41] LABS: Partial Thromboplastin Time 24.9 SECONDS (22.3-36.8)
[2020-10-26 21:45] LABS: Lactic Acid Reflex 1.7 mmol/L (0.7-2.1)
[2020-10-26 21:46] LABS: Acetaminophen 42 ug/mL (10-30); Ammonia < 9 umol/L (9-30); Ethanol < 10 mg/dL (<10); Salicylate < 1.0 mg/dL (2-20)
[2020-10-26 21:47] LABS: Alanine Aminotransferase 56 U/L (4-35); Albumin Level 4.2 g/dL (3.5-5.1); Alkaline Phosphatase 223 U/L (38-126); Anion Gap 12 mmol/L (8-16); Aspartate Amino Transferase 181 U/L (14-36); Bilirubin,Total 1.1 mg/dL (0.2-1.3); Blood Urea Nitrogen 17 mg/dL (7-17); Calcium 9.5 mg/dL (8.4-10.2); Carbon Dioxide 18 mmol/L (22-30); Chloride 105 mmol/L (98-107); Estimated CRCL calculation 52 ml/min; Estimated Glomerular Filt Rate > 60; Glucose 109 mg/dL (65-105); Potassium 3.2 mmol/L (3.4-5.0); Sodium 135 mmol/L (137-145)
[2020-10-26 21:57] LABS: Glucose Point of Care 106 (65-105)
[2020-10-26 21:58] LABS: Troponin I 0.019 ng/mL (0.000-0.034)
[2020-10-26 23:02] LABS: Add Urine Microscopic? YES; Appearance Urine Clear (Clear); Bilirubin Urine Negative (Negative); Blood Urine Negative (Negative); Color Urine Yellow (Yellow); Glucose Urine UA Negative (Negative); Ketones Urine Trace mg/dL (Negative); Leukocyte Esterase Ur Negative LEU/UL (Negative); Mucus Urine Rare /lpf; Nitrate Urine Negative (Negative); Protein Urine 1+ mg/dL (Negative); RBC Urine 0-2 /hpf (0-2); Squamous Epithelial Cell Urine Rare /hpf (Few); Urobilinogen Urine Negative mg/dL (<2.0); WBC Urine 0-3 /hpf
[2020-10-26 23:05] LABS: Specific Grav Ur 1.039 (1.001-1.035)
[2020-10-26 23:23] LABS: Barbiturate Screen Urine Positive (Negative); Benzodiazepines Screen Urine Negative (Negative)
[2020-10-26 23:24] LABS: Cannabinoid Screen Urine Negative (Negative); Cocaine Screen Urine Negative (Negative); Methadone Screen Urine Negative (Negative); Opiate Screen Urine Positive (Negative); Phencyclidine Screen Urine Negative (Negative)
[2020-10-26 23:42] LABS: Amphetamine Screen Urine Positive (Negative)
--- NOTE | 2020-10-26 23:45 | PC.NURSE ---
Addendum entered by Crystal Bravo RN 10/26/20 23:47: case#[id number] Original Note: RN spoke FRANSISCA Church @ Poison control - repeat tylenol at 4 hours keppra watch for vomiting and supportive care benzo's do not give flumazaril - symptomatic relief opiate - narcan as needed - supportive care.
[2020-10-27] VITALS (37 sets, daily range): BP systolic 99–187; BP diastolic 61–150; PULSE 89–97; RESP 14–30; O2SAT 97
[2020-10-27 01:53] LABS: Acetaminophen 18 ug/mL (10-30)
--- NOTE | 2020-10-27 02:26 | PC.NURSE ---
FRANSISCA Church from poison control communicated tylenol level.
--- NOTE | 2020-10-27 02:28 | PC.NURSE ---
per travon nance at poison control please redraw ast/alt at about 6am. to watch the trending.
--- NOTE | 2020-10-27 02:41 | PC.NURSE ---
RN returned call to poison control -per erp dr cedeno request. Poison control FRANSISCA Landis notified about pt chronic high ast/alt and Sabiha would still like us to redraw the labs at 0600.
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
--- NOTE | 2020-10-27 05:36 | PC.NURSE ---
This RN is still unable to complete the Suicide screening due to patient being ams still.
[2020-10-27 05:55] LABS: Alanine Aminotransferase 57 U/L (4-35); Albumin Level 3.5 g/dL (3.5-5.1); Alkaline Phosphatase 183 U/L (38-126); Aspartate Amino Transferase 154 U/L (14-36)
--- NOTE | 2020-10-27 06:08 | PC.NURSE ---
Per Poison Control FRANSISCA Landis - we would like her to be observed a little while longer. ERP Dr. Alfaro notified.
--- NOTE | 2020-10-27 07:01 | PC.NURSE ---
rn report given to lee ann smith
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
== END 2020-10-27 08:35 | disposition home or self-care (01) ==
PROVIDERS: Emergency Medicine; Emergency Provider Emergency Medicine; PCP Family Medicine
DX: T50.901A Poisoning by unspecified drugs, medicaments and biological substances, accidental (unintentional), initial encounter (principal); F10.10 Alcohol abuse, uncomplicated; F41.9 Anxiety disorder, unspecified; F32.9 Major depressive disorder, single episode, unspecified; Z85.038 Personal history of other malignant neoplasm of large intestine; K21.9 Gastro-esophageal reflux disease without esophagitis; Z86.19 Personal history of other infectious and parasitic diseases; Z90.49 Acquired absence of other specified parts of digestive tract; K58.9 Irritable bowel syndrome, unspecified; Z92.21 Personal history of antineoplastic chemotherapy; F17.210 Nicotine dependence, cigarettes, uncomplicated; R00.0 Tachycardia, unspecified; R94.31 Abnormal electrocardiogram [ECG] [EKG]
CPT/HCPCS: 36415; 36600; 70450; 71045; 80053; 80076; 80307; 81001; 82140; 82805; 82948; 83605; 84443; 84484; 85025; 85730; 93005; 96361; 96374; 99284; J2405; J7030

== ENCOUNTER 2020-12-01 15:31 | Emergency (ER) | payer MEDICARE, MEDICAID, SELFPAY ==
[2020-12-01 15:25] VITALS: BP 108/78; PULSE 88; RESP 16; TEMP 36.7; O2SAT 96
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
--- NOTE | 2020-12-01 15:43 | ECG_ITS ---
Measurements Intervals [place] Rate: 88 P: 69 AL: 133 QRS: 81 QRSD: 80 T: 108 QT: 389 QTc: 471 Interpretive Statements SINUS RHYTHM ANTEROSEPTAL INFARCT, AGE INDETERMINATE ST-T WAVE ABNORMALITY IN HIGH LATERAL LEADS- CONSIDER ISCHEMIA ABNORMAL ECG Electronically Signed On 12-02-2020 7:58:38 SOCIAL SERVICE TECHNICIAN by Jules Workman D.O.
[2020-12-01 15:56] LABS: Basophils Absolute Auto 0.1 K/mm3 (0.0-0.1); Basophils Percent Auto 0.5 % (0.2-1.2); Eosinophils Percent Auto 0.3 % (0-4.4); Hematocrit 38.2 % (37.0-47.0); Hemoglobin 12.3 g/dL (12.0-15.0); Immature Granulocyte Absolute 0.09 K/mm3 (0.00-0.031); Immature Granulocyte Percent A 0.7 % (0-0.5); Lymphocytes Absolute Auto 4.11 K/mm3 (0.9-3.2); Lymphocytes Percent Auto 33.9 % (18.3-44.2); Mean Corpuscular HGB Conc 32.2 g/dl (32-36); Mean Corpuscular Hemoglobin 31.9 pg (26-34); Mean Platelet Volume 9.2 fl (7.4-10.4); Monocytes Absolute Auto 0.9 K/mm3 (0.1-0.6); Monocytes Percent Auto 7.1 % (2.6-8.5); Neutrophils Percent Auto 57.5 % (45.5-73.1); Platelet Count Result 365 k/mm3 (150-375); Red Blood Count 3.86 M/mm3 (4.2-5.4); Red Cell Distribution Width 15.9 % (11.5-14.5); White Blood Count 12.1 K/mm3 (4.5-10.0)
[2020-12-01 15:59] LABS: Add Urine Microscopic? YES; Appearance Urine Clear (Clear); Bilirubin Urine Negative (Negative); Blood Urine Negative (Negative); Color Urine Colorless (Yellow); Glucose Urine UA Negative (Negative); Ketones Urine Negative (Negative); Leukocyte Esterase Ur Trace LEU/UL (Negative); Nitrate Urine Negative (Negative); Protein Urine Negative (Negative); RBC Urine 0-2 /hpf (0-2); Specific Grav Ur 1.005 (1.001-1.035); Squamous Epithelial Cell Urine Rare /hpf (Few); Urobilinogen Urine Negative mg/dL (<2.0); WBC Urine 0-3 /hpf
[2020-12-01 16:09] LABS: Alanine Aminotransferase 27 U/L (4-35); Albumin Level 3.4 g/dL (3.5-5.1); Alkaline Phosphatase 207 U/L (38-126); Anion Gap 6 mmol/L (8-16); Aspartate Amino Transferase 65 U/L (14-36); Bilirubin,Total 0.2 mg/dL (0.2-1.3); Blood Urea Nitrogen 11 mg/dL (7-17); Calcium 7.9 mg/dL (8.4-10.2); Carbon Dioxide 30 mmol/L (22-30); Chloride 110 mmol/L (98-107); Estimated CRCL calculation 78 ml/min; Estimated Glomerular Filt Rate > 60; Glucose 106 mg/dL (65-105); Sodium 146 mmol/L (137-145)
[2020-12-01 16:14] LABS: Amphetamine Screen Urine Negative (Negative); Barbiturate Screen Urine Positive (Negative); Benzodiazepines Screen Urine Negative (Negative); Cannabinoid Screen Urine Negative (Negative); Cocaine Screen Urine Negative (Negative); Methadone Screen Urine Negative (Negative); Opiate Screen Urine Negative (Negative); Phencyclidine Screen Urine Negative (Negative)
[2020-12-01 16:15] VITALS: BP 97/72; PULSE 83; RESP 19; O2SAT 94
[2020-12-01 16:20] LABS: Ethanol 468 mg/dL (<10)
[2020-12-01 17:21] VITALS: BP 103/66; PULSE 92; RESP 18; O2SAT 96
--- NOTE | 2020-12-01 17:21 | PC.NURSE ---
1615- Sitter at bedside. Pt resting at this time.
--- NOTE | 2020-12-01 17:42 | PC.NURSE ---
PT HAS SITTER AT BEDSIDE, TRIES TO GET UP ON OWN WHEN USING THE BATHROOM. PT PLACED ON BEDPAN. LIGHTS DIMMED. VSS.
[2020-12-01 19:15] VITALS: BP 90/64; PULSE 84; RESP 16; O2SAT 94
[2020-12-01 20:00] VITALS: BP 82/63; PULSE 88; RESP 16; O2SAT 94
[2020-12-01 20:28] VITALS: BP 98/54; PULSE 80; RESP 16; O2SAT 95
== END 2020-12-01 21:07 | disposition home or self-care (01) ==
PROVIDERS: Emergency Medicine; Emergency Provider Emergency Medicine; PCP Family Medicine
DX: F10.129 Alcohol abuse with intoxication, unspecified (principal); F41.9 Anxiety disorder, unspecified; F32.9 Major depressive disorder, single episode, unspecified; K21.9 Gastro-esophageal reflux disease without esophagitis; K58.9 Irritable bowel syndrome, unspecified; Z85.038 Personal history of other malignant neoplasm of large intestine; F17.210 Nicotine dependence, cigarettes, uncomplicated; Z90.49 Acquired absence of other specified parts of digestive tract; Z86.19 Personal history of other infectious and parasitic diseases; Y90.8 Blood alcohol level of 240 mg/100 ml or more; Z79.899 Other long term (current) drug therapy
CPT/HCPCS: 36415; 80053; 80307; 81001; 85025; 93005; 99284

== ENCOUNTER 2020-12-03 13:07 | Emergency (ER) | payer MEDICARE, MEDICAID, SELFPAY ==
--- NOTE | ~2020-12-03 | XR_ITS ---
EXAMINATION: XR ribs LT 2V w CXR 2V DATE: 12/03/2020 13:36 INDICATION: Left lateral rib pain. Fall. TECHNIQUE: Frontal and lateral views of the chest and 3 views of the left ribs were obtained. COMPARISON: Chest single view 10/26/2020, chest 2 views 08/11/2020, left shoulder radiographs 07/14/20 20 FINDINGS: CHEST TWO VIEWS: There is mild atelectasis in left lower lung zone. No pleural effusion or pneumothor ax. The heart size is normal. There are changes of anterior fusion procedure in cervical spine and tayler mbar spine. There are changes of posterior fusion procedure in thoracolumbar spine. There is a right subclavian port with tip at superior cavoatrial junction. Again seen is an ununited fracture of left humeral diaphysis. LEFT RIBS: There are multiple old healed left rib fractures. IMPRESSION: 1. No acute rib fracture. 2. 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 Reviewed, dictated and finalized at location A. R BARKER
[2020-12-03 13:06] VITALS: BP 162/95; PULSE 104; RESP 23; TEMP 36.6; O2SAT 96
--- NOTE | 2020-12-03 13:24 | ED.BACK ---
HPI - Back Pain/Injury General Chief Complaint: Back Pain/Injury Stated Complaint: left back pain Time Seen by Provider: 12/03/20 13:16 Source: patient Mode of arrival: EMS Limitations: no limitations History of Present Illness HPI Narrative: This is a 65 year old female that presents to the ER for left sided mid back pain. Reports she is unsure if she had a fall. Pain is worse with movement and relieved with rest. She took some Tylenol this morning for pain. Denies neck pain, weakness or numbness. Related Data Home Medications Medication Instructions Recorded Confirmed lorazepam 0.5 mg PO TID PRN 07/21/20 07/21/20 Allergies Allergy/AdvReac Type Severity Reaction Status Date / Time Sulfa (Sulfonamide Allergy Unknown Unknown Verified 12/03/20 13:10 Antibiotics) Review of Systems Review of Systems: Narrative: CONSTITUTIONAL: Denies fever MUSCULOSKELETAL: Reports back pain, and myalgia. NEUROLOGIC: Denies numbness, or weakness. All systems reviewed & are unremarkable except as noted in HPI and below PMFSH Past Medical History Medical History (Updated 12/03/20 @ 13:54 by Mckenna Moeller PA-C) Anxiety Back pain with history of spinal surgery Miller rods placed due to scoliosis Colon cancer Depression Fracture of right ankle, lateral malleolus Nondisplaced comminuted fracture lateral malleolus 11/13/2019 Frequent falls GERD (gastroesophageal reflux disease) GI bleed With history of gastric and duodenal ulcer 09/2018 Hepatitis C Has a teenage History of colon cancer Status post sigmoid resection 05/05/2017 Hx of seizure disorder With normal EEG and MRI demonstrating arachnoid cyst in the left temporal lobe with chronic small-vessel ischemic changes in November 2016 IBS (irritable bowel syndrome) 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 Surgical History Surgical History History of bilateral carpal tunnel release History of bone graft from LLE to repair bilateral wrist fractures History of colon resection sigmoid due to colon cancer April 2017 History of cystoscopy with stents March 2017 Hx of section Port-A-Cath in place Scoliosis deformity of spine With surgical repair Wrist fracture, bilateral Requiring bone graft Family History Family History Mother Diabetes mellitus Hypertension COPD (chronic obstructive pulmonary disease) Father MVA (motor vehicle accident) Alcohol abuse Sibling Drug overdose Social History Social History Social History: Primary care physician: Dr. Carolyn Ibarra Code status: Full code per EMR Smoking packs per day: 1 Smoking cigarettes per day: 20.0 Years smoked: 47 Smoking pack-years: 47.00 Smoking status: Current every day smoker Tobacco type: cigarettes Second hand tobacco smoke exposure: Yes Alcohol intake: current Drinks per week: 5 Substance use: unknown Substance use type: does not use Additional living arrangements comments: Pt lives in an apartment complex. Additional occupation/education comments: The patient reports that she is disabled due to her seizures. Gender identity (if verbalized by the patient): Female Spiritual care concerns: No Agree to blood products: Yes Exam Narrative: Exam Narrative: GENERAL: Well-appearing, well-nourished, and in no acute distress. HEAD: Normocephalic, atraumatic. EYES: PERRLA and EOMI. ENT: Nares clear, no rhinorrhea or epistaxis. Mucous membranes moist. Oropharynx without tonsillar hypertrophy exudate or other lesions. NECK: Supple. No adenopathy or masses. No midline cervical spine tenderness CHEST: Clear to auscultation. No respiratory distress. No wheezes rales or rhonchi HEART: Regular rate and rhythm. No murmur heard. Normal la nena
[2020-12-03] MEDS: KETOROLAC 30 MG/ML VIAL (*BKC) (14:00)
== END 2020-12-03 14:21 | disposition home or self-care (01) ==
PROVIDERS: Emergency Provider Emergency Medicine; PCP Family Medicine
DX: S20.212A Contusion of left front wall of thorax, initial encounter (principal); F41.9 Anxiety disorder, unspecified; F32.9 Major depressive disorder, single episode, unspecified; K21.9 Gastro-esophageal reflux disease without esophagitis; G40.909 Epilepsy, unspecified, not intractable, without status epilepticus; K58.9 Irritable bowel syndrome, unspecified; Z85.038 Personal history of other malignant neoplasm of large intestine; Z92.21 Personal history of antineoplastic chemotherapy; Z90.49 Acquired absence of other specified parts of digestive tract; Z86.19 Personal history of other infectious and parasitic diseases; S49.092 Other physeal fracture of upper end of humerus, left arm; F17.210 Nicotine dependence, cigarettes, uncomplicated; X58.XXXA Exposure to other specified factors, initial encounter; X58.XXXD Exposure to other specified factors, subsequent encounter
CPT/HCPCS: 71046; 71100; 96374; 99284; J1885

== ENCOUNTER 2020-12-28 20:33 | Emergency (ER) | payer MEDICARE, MEDICAID, SELFPAY ==
--- NOTE | ~2020-12-28 | CT_ITS ---
EXAMINATION: CT brain wo con INDICATION: Head injury COMPARISON: 10/26/2020 TECHNIQUE: Standard unenhanced head CT. The dose-length product (DLP) was 605.33 mGy-cm. The mA was a djusted according to patient size. Iterative reconstruction technique was employed. FINDINGS: There is no acute intraparenchymal hemorrhage. No evidence of mass lesion. No evidence of a cute infarction. There is moderate periventricular and subcortical hypodensity probably related to sm all vessel ischemic disease. There is moderate prominence of the sulci and ventricles related to cere bral atrophy. Intracranial calcified cerebral atherosclerosis is noted. There are no extra-axial rochelle ections. There is no mass effect or midline shift. The orbits and soft tissues are unremarkable. The visualized sinuses and mastoid air cells are well aerated. IMPRESSION: 1. No acute intracranial abnormality. 2. Age related findings. Reviewed, dictated and finalized at location A. BDENUM STEAMER OPERATOR
--- NOTE | ~2020-12-28 | CT_ITS ---
EXAMINATION: CT abdomen pelvis w con DATE: 12/29/2020 00:07 INDICATION: Upper abdominal pain. Leukocytosis. TECHNIQUE: Computed tomography (CT) of the abdomen and pelvis was performed with 100 mL Omnipaque 350 intravenous contrast. Automated exposure control and iterative reconstruction technique were employe d. The dose-length product was 488.07 mGy-cm. COMPARISON: CT abdomen and pelvis 10/03/2018 FINDINGS: The visualized portions of the lung bases demonstrate minimal atelectasis. The heart size i s normal. There is lipomatous hypertrophy of interatrial septum. No pericardial effusion. There are c oronary artery calcifications. There is a 2.9 x 2.4 cm mass in right hepatic lobe with biliary duct d ilatation peripheral to the mass. There is a 5.3 cm mass in left hepatic lobe. The gallbladder, splee n, pancreas, and adrenal glands are normal. There is a 13 mm cyst in right kidney. There is moderate atrophy of left kidney. There are 2 stones in left kidney with larger measuring 6 mm. There is an rosales stomosis in the sigmoid colon. There is liquid stool in the colon suggestive of diarrhea. There are n o dilated loops of bowel. The appendix is normal. There is a mildly enlarged periportal lymph node. T here is an old healed fracture of left inferior pubic ramus. There are changes of posterior fusion pr ocedure involving the thoracolumbar spine, sacrum, and iliac bones. There is levoscoliosis of thoraco lumbar spine. There are changes of anterior fusion procedure in lumbar spine. There is a chronic comp ression fracture at the thoracolumbar junction. There are old healed right rib fractures. IMPRESSION: 1. Liver masses, consistent with metastatic disease. Reviewed, dictated and finalized at location A. SIS WIRER
[2020-12-28 20:36] VITALS: BP 109/80; PULSE 104; RESP 14; TEMP 36.6; O2SAT 95
--- NOTE | 2020-12-28 21:11 | PC.NURSE ---
Patient walked out into hallway, yelling. Patient has no pants or underwear on. Patient informed to stay in room and she has her call light within reach. Patient given papers scrub pants.
[2020-12-28] MEDS: ACETAMINOPHEN 500 MG TABLET 1000 MG PO (21:41)
[2020-12-28] MEDS: TETANUS,DIPHTHERIA,AC PERTUSSIS ADULT (0.5 ML) BOOSTRIX IM (21:42)
--- NOTE | 2020-12-28 21:43 | ED.HEATRA ---
HPI - Head Injury General Chief complaint: Head Injury Stated complaint: fall yesterday Time Seen by Provider: 12/28/20 20:59 Source: patient Mode of arrival: EMS Limitations: no limitations History of Present Illness HPI Narrative: This is a 65 year old female who presents for evaluation of right sided headache s/p head injury. She states yesterday she accidentally ran into her refrigerator. She does not have any medication at home so she has not taken any thing. She came to ER today because she is have severe pain. She denies nausea, vomiting, dizziness, blurred vision. She denies neck injury or extremity injury. She states she does not take a blood thinner. Related Data Home Medications Medication Instructions Recorded Confirmed lorazepam 0.5 mg PO TID PRN 07/21/20 07/21/20 Allergies Allergy/AdvReac Type Severity Reaction Status Date / Time Sulfa (Sulfonamide Allergy Unknown Unknown Verified 12/28/20 20:59 Antibiotics) Review of Systems Review of Systems: All systems reviewed & are unremarkable except as noted in HPI and below Constitutional: Constitutional: Denies chills and Denies fever(s) Cardiovascular: Cardiovascular: Denies chest pain Respiratory: Respiratory: Denies dyspnea Gastrointestinal: Gastrointestinal: Reports abdominal pain, Reports diarrhea, Reports nausea and Denies vomiting Neurologic: Reports headache(s) and Denies focal weakness [facility] Past Medical History Medical History (Updated 12/29/20 @ 04:07 by Berenice Samaniego MD) Anxiety Back pain with history of spinal surgery Miller rods placed due to scoliosis Colon cancer Depression Fracture of right ankle, lateral malleolus Nondisplaced comminuted fracture lateral malleolus 11/13/2019 Frequent falls GERD (gastroesophageal reflux disease) GI bleed With history of gastric and duodenal ulcer 09/2018 Hepatitis C Has a teenage History of colon cancer Status post sigmoid resection 05/05/2017 Hx of seizure disorder With normal EEG and MRI demonstrating arachnoid cyst in the left temporal lobe with chronic small-vessel ischemic changes in November 2016 IBS (irritable bowel syndrome) 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 Surgical History Surgical History History of bilateral carpal tunnel release History of bone graft from LLE to repair bilateral wrist fractures History of colon resection sigmoid due to colon cancer April 2017 History of cystoscopy with stents March 2017 Hx of section Port-A-Cath in place Scoliosis deformity of spine With surgical repair Wrist fracture, bilateral Requiring bone graft Family History Family History Mother Diabetes mellitus Hypertension COPD (chronic obstructive pulmonary disease) Father MVA (motor vehicle accident) Alcohol abuse Sibling Drug overdose Social History Social History Social History: Primary care physician: Dr. Carolyn Ibarra Code status: Full code per EMR Smoking packs per day: 1 Smoking cigarettes per day: 20.0 Years smoked: 47 Smoking pack-years: 47.00 Smoking status: Current every day smoker Tobacco type: cigarettes Second hand tobacco smoke exposure: Yes Alcohol intake: current Drinks per week: 5 Substance use: unknown Substance use type: does not use Additional living arrangements comments: Pt lives in an apartment complex. Additional occupation/education comments: The patient reports that she is disabled due to her seizures. Gender identity (if verbalized by the patient): Female Spiritual care concerns: No Agree to blood products: Yes Exam Const: General: alert Orientation/consciousness: patient oriented x3 Eyes: Conjunctivae: conjunctival abnormality right s
--- NOTE | 2020-12-28 21:45 | PC.NURSE ---
Patient taken to CT.
--- NOTE | 2020-12-28 21:59 | PC.NURSE ---
Patient given the paper scrub pants, patient refusing to put them on.
[2020-12-28] MEDS: ONDANSETRON INJ 4 MG/2 ML VIAL IV PUSH (23:07)
[2020-12-28] MEDS: PANTOPRAZOLE SODIUM IV 40 MG VIAL IV PUSH (23:07)
[2020-12-28 23:13] LABS: Basophils Absolute Auto 0.1 K/mm3 (0.0-0.1); Basophils Percent Auto 0.5 % (0.2-1.2); Eosinophils Percent Auto 0.2 % (0-4.4); Hematocrit 44.3 % (37.0-47.0); Hemoglobin 14.2 g/dL (12.0-15.0); Immature Granulocyte Absolute 0.07 K/mm3 (0.00-0.031); Immature Granulocyte Percent A 0.5 % (0-0.5); Lymphocytes Absolute Auto 4.26 K/mm3 (0.9-3.2); Lymphocytes Percent Auto 33.3 % (18.3-44.2); Mean Corpuscular HGB Conc 32.1 g/dl (32-36); Mean Corpuscular Volume 99.8 fl (80-100); Mean Platelet Volume 9.9 fl (7.4-10.4); Monocytes Absolute Auto 0.6 K/mm3 (0.1-0.6); Neutrophils Absolute Auto 7.8 K/mm3 (1.3-6.7); Neutrophils Percent Auto 60.5 % (45.5-73.1); Platelet Count Result 342 k/mm3 (150-375); Red Blood Count 4.44 M/mm3 (4.2-5.4); Red Cell Distribution Width 14.3 % (11.5-14.5); White Blood Count 12.8 K/mm3 (4.5-10.0)
[2020-12-28 23:20] VITALS: BP 101/58; PULSE 100; RESP 18; O2SAT 99
[2020-12-28 23:23] VITALS: O2SAT 97
--- NOTE | 2020-12-28 23:25 | PC.NURSE ---
Collected patient's urine sample, scanned labels, then patient dumped urine out. Patient states she will attempt to provide another specimen.
[2020-12-28 23:30] VITALS: BP 110/70; O2SAT 97
[2020-12-28 23:30] LABS: Alanine Aminotransferase 20 U/L (4-35); Albumin Level 4.3 g/dL (3.5-5.1); Alkaline Phosphatase 240 U/L (38-126); Anion Gap 9 mmol/L (8-16); Aspartate Amino Transferase 43 U/L (14-36); Blood Urea Nitrogen 11 mg/dL (7-17); Calcium 8.9 mg/dL (8.4-10.2); Carbon Dioxide 20 mmol/L (22-30); Chloride 108 mmol/L (98-107); Estimated CRCL calculation 50 ml/min; Estimated Glomerular Filt Rate > 60; Glucose 103 mg/dL (65-105); Lipase 80 U/L (23-300); Potassium 3.6 mmol/L (3.4-5.0); Sodium 137 mmol/L (137-145)
[2020-12-28 23:31] VITALS: O2SAT 98
[2020-12-28 23:45] VITALS: O2SAT 98
[2020-12-28] MEDS: SODIUM CHLORIDE 0.9% IV 1,000 ML 999 ML IV CONT (23:55)
[2020-12-29] VITALS (17 sets, daily range): BP systolic 102–118; BP diastolic 54–63; PULSE 97; RESP 18; O2SAT 96–100
[2020-12-29 03:45] LABS: Add Urine Microscopic? YES; Appearance Urine Clear (Clear); Bilirubin Urine Negative (Negative); Blood Urine Negative (Negative); Color Urine Yellow (Yellow); Glucose Urine UA Negative (Negative); Ketones Urine Trace mg/dL (Negative); Leukocyte Esterase Ur 3+ LEU/UL (Negative); Nitrate Urine Negative (Negative); Protein Urine Negative (Negative); Squamous Epithelial Cell Urine Many /hpf (Few); Urobilinogen Urine Negative mg/dL (<2.0); WBC Urine 21-30 /hpf
[2020-12-29 03:47] LABS: Specific Grav Ur > 1.060 (1.001-1.035)
== END 2020-12-29 05:30 | disposition home or self-care (01) ==
PROVIDERS: Emergency Provider General Practice; PCP Family Medicine
DX: S09.90XA Unspecified injury of head, initial encounter (principal); N39.0 Urinary tract infection, site not specified; R16.0 Hepatomegaly, not elsewhere classified; F41.9 Anxiety disorder, unspecified; F32.9 Major depressive disorder, single episode, unspecified; Z85.038 Personal history of other malignant neoplasm of large intestine; K21.9 Gastro-esophageal reflux disease without esophagitis; Z86.19 Personal history of other infectious and parasitic diseases; Z90.49 Acquired absence of other specified parts of digestive tract; K58.9 Irritable bowel syndrome, unspecified; F17.210 Nicotine dependence, cigarettes, uncomplicated; G40.909 Epilepsy, unspecified, not intractable, without status epilepticus; Z23 Encounter for immunization; W22.8XXA Striking against or struck by other objects, initial encounter
CPT/HCPCS: 36415; 70450; 74177; 80053; 81001; 83690; 85025; 87077; 87086; 87088; 87186; 90471; 90715; 96361; 96365; 96375; 99284; A9270; C9113; J0696; J2405; J7030; Q9967

== ENCOUNTER 2021-01-31 15:20 | Emergency (ER) | payer MEDICARE, MEDICAID, SELFPAY ==
[2021-01-31 15:27] VITALS: PULSE 108; RESP 24; TEMP 36.8; O2SAT 96
--- NOTE | 2021-01-31 15:51 | PC.NURSE ---
Pt ambulated to restroom without difficultly
--- NOTE | 2021-01-31 16:24 | PC.NURSE ---
Pt screaming at bedside stating i have been here for ever, when am i going to see a Dr? I am in excruciating pain . Explained to pt that the Dr. was in another room and would be in when he was done with that pt. Pt then walks to nurses states she is wanting to leave and that I will be hearing for her mergers and acquisitions attorney. This RN had pt sign AMA paperwork and pt ambulated to exit with no difficulty
--- NOTE | 2021-01-31 16:27 | ED.FALL ---
HPI - Fall General Chief Complaint: Fall Stated Complaint: leg pain Time Seen by Provider: 01/31/21 16:09 Source: patient Mode of arrival: ambulatory Limitations: no limitations History of Present Illness HPI Narrative: Patient is a 65-year-old female complaining of right-sided pain, right shoulder, right ribs, right hip and right lower extremity after she fell 2 days ago. Patient states that she slipped and fell. She denies any loss of consciousness. She denies any head, neck, back, abdominal or any other extremity pain/injury. Patient ambulated to room without difficulty. Patient was standing during H&P. Patient is very belligerent but states that she is negative for any x-rays or lab work and wants to leave now. Patient states she wants resolved now where she is leaving. Patient states she is waited 50 minutes. Related Data Home Medications Medication Instructions Recorded Confirmed lorazepam 0.5 mg PO TID PRN 07/21/20 07/21/20 Allergies Allergy/AdvReac Type Severity Reaction Status Date / Time Sulfa (Sulfonamide Allergy Unknown Unknown Verified 12/28/20 20:59 Antibiotics) Review of Systems Review of Systems: All systems reviewed & are unremarkable except as noted in HPI and below Constitutional: Constitutional: Denies body ache(s), Denies chills, Denies excessive sweating, Denies fatigue, Denies fever(s), Denies headache(s), Denies lethargy, Denies malaise, Denies weakness and Denies weight loss Eyes: Eyes: Denies blurry vision, Denies change in vision and Denies loss of vision ENT: Denies dizziness, Denies ear discharge, Denies headache(s), Denies lip swelling, Denies epistaxis, Denies nasal congestion, Denies neck pain, Denies throat swelling and Denies tongue swelling Cardiovascular: Cardiovascular: Denies chest pain, Denies chest pain at rest, Denies chest pain with activity, Denies diaphoresis, Denies rapid heart rate, Denies edema, Denies irregular heart rhythm, Denies lightheadedness, Denies palpitations, Denies dyspnea and Denies dyspnea on exertion Respiratory: Respiratory: Denies chest congestion, Denies cough, Denies hemoptysis, Denies dyspnea and Denies dyspnea on exertion Gastrointestinal: Gastrointestinal: Denies abdominal pain, Denies melena, Denies hematochezia, Denies diarrhea, Denies nausea, Denies vomiting and Denies hematemesis Musculoskeletal: Musculoskeletal: Denies abnormal gait, Denies deformity, Denies joint swelling, Denies limited range of motion, Denies neck pain and Denies numbness Neurologic: Denies Abnormal speech present, Denies abnormal gait, Denies confusion, Denies dizziness, Denies headache(s), Denies focal weakness, Denies loss of vision, Denies numbness, Denies Other visual disturbances, Denies Sensory deficit (Neuro) and Denies weakness Psychiatric: Psychiatric: Denies confusion, Denies depression, Denies auditory hallucinations, Denies homicidal ideation and Denies suicidal ideation Endocrine: Endocrine: Denies cold intolerance, Denies excessive sweating, Denies fatigue, Denies heat intolerance and Denies palpitations Hematologic/Lymphatic: Hematologic/Lymphatic: Denies easy bleeding and Denies easy bruising Allergic/Immunologic: Allergic/Immunologic: Denies lip swelling, Denies throat swelling and Denies tongue swelling PMFSH Past Medical History Medical History (Updated 01/31/21 @ 16:34 by Adal Patel MD) Anxiety Back pain with history of spinal surgery Miller rods placed due to scoliosis Colon cancer Depression Fracture of right ankle, lateral malleolus Nondisplaced comminuted fracture lateral malleolus 11/13/2019 Frequent falls GERD (gastroesophageal reflux disease) GI bleed With history of gastric and duodenal ulcer 09/2018 Hepatitis C Has a teenage History of colon cancer Status post sigmoid resection 05/05/2017 Hx of seizure disorder With normal EEG and MRI demonstrating arachnoid cyst in the left temporal lobe with chronic small-vessel isch
== END 2021-01-31 16:27 | disposition left against medical advice (07) ==
PROVIDERS: Emergency Provider Emergency Medicine; PCP Family Medicine
DX: M25.511 Pain in right shoulder (principal); R07.81 Pleurodynia; M79.604 Pain in right leg; Z85.038 Personal history of other malignant neoplasm of large intestine; F41.9 Anxiety disorder, unspecified; F32.9 Major depressive disorder, single episode, unspecified; K21.9 Gastro-esophageal reflux disease without esophagitis; Z86.19 Personal history of other infectious and parasitic diseases; K58.9 Irritable bowel syndrome, unspecified; G40.909 Epilepsy, unspecified, not intractable, without status epilepticus; Z90.49 Acquired absence of other specified parts of digestive tract; F17.210 Nicotine dependence, cigarettes, uncomplicated; W01.0XXA Fall on same level from slipping, tripping and stumbling without subsequent striking against object, initial encounter
CPT/HCPCS: 99282

== ENCOUNTER 2021-02-25 02:23 | Emergency (ER) | payer MEDICARE, MEDICAID, SELFPAY ==
--- NOTE | ~2021-02-25 | XR_ITS ---
XR chest 1V DATE: 02/25/2021 03:28 INDICATION: Altered mental state TECHNIQUE: Portable AP chest on 02/25/2021 at 0326 hours COMPARISON: 12/03/2020 PA and lateral chest FINDINGS: There is a limited single portable rotated radiograph examination. Right Port-A-Cath catheter tip is situated in the region of the right superior cavoatrial junction. No pulmonary infiltrate or consolidation, pleural effusion or pulmonary vascular congestion or pneumo thorax is evident. Heart size appears likely within normal range. Is aortic arch calcification. Diffuse osteopenia. Status post anterior cervical spine fusion. Thoracolumbar spinal rods and pedicle screws. Prominent t horacolumbar scoliosis and degenerative change. IMPRESSION: No active disease Reviewed, dictated and finalized at location A. IMPRESSION: No active disease
--- NOTE | ~2021-02-25 | CT_ITS ---
EXAMINATION: CT cervical spine wo con DATE: 02/25/2021 03:30 INDICATION: Fall. Altered level of consciousness. TECHNIQUE: Computed tomography (CT) of the cervical spine was performed without intravenous contrast. Automated exposure control and iterative reconstruction technique were employed. Exam dose: 459.01 mGy-cm total exam DLP. COMPARISON: 09/05/2020 CT cervical spine FINDINGS: There is straightening of the cervical spine. Levoscoliosis of the cervical and upper thora cic spine. C1 and C2 are normally aligned and the odontoid process is intact. There is a linear nondisplaced fracture through the lateral mass of C2, extending through the right C 2 transverse foramen. No other fracture or dislocation is evident. Status post anterior cervical spine fusion at C5-C7. Moderate degenerative disc disease is noted at C 3-4, C4-5. There is severe degenerative disc disease at C7-T1, T1-T2. There is degenerative change at the apophyseal and uncovertebral joints. IMPRESSION: C2 lateral mass fracture Status post anterior cervical spine fusion at C5-7 Extensive cervical spondylosis Reviewed, dictated and finalized at Location [facility]. Reviewed, dictated and finalized at location A.
--- NOTE | ~2021-02-25 | CT_ITS ---
EXAMINATION: CT brain wo con DATE: 02/25/2021 03:30 INDICATION: Fall. Altered level of consciousness. TECHNIQUE: Computed tomography (CT) of the head was performed without intravenous contrast. The mA wa s adjusted according to patient size. Iterative reconstruction technique was employed. Exam dose: 60 5.33 mGy-cm total exam DLP. COMPARISON: 12/2020 CT brain FINDINGS: Bilateral carotid siphon internal carotid artery calcifications are noted. There is nonspec ific diminished attenuation of the subcortical and periventricular cerebral white matter, likely due to chronic small vessel ischemic changes. No intracranial mass lesion or hemorrhage, midline shift or mass effect. There is moderate central an d cortical cerebral atrophy. No subdural or epidural hematoma. No fracture or bone destruction of the cranial vault. There is some patchy right ethmoid air cell opacification. Minimal mucoperiosteal thickening of the l eft maxillary sinus. Included paranasal sinuses and mastoid air cells are otherwise unremarkable. IMPRESSION: No acute intracranial finding or skull fracture Cerebral atherosclerosis and probable chronic small vessel ischemic changes of the cerebral white mat ter Reviewed, dictated and finalized at Location [facility]. Reviewed, dictated and finalized at location A. IMPRESSION: No acute intracranial finding or skull fracture Cerebral atherosclerosis and probable chronic small vessel ischemic changes of the cerebral white matter
--- NOTE | ~2021-02-25 | CT_ITS ---
EXAMINATION: CT abdomen pelvis w con DATE: 02/25/2021 05:00 INDICATION: Abdominal pain TECHNIQUE: Computed tomography (CT) of the abdomen and pelvis was performed with 100 cc Omnipaque 350 intravenous contrast. Automated exposure control and iterative reconstruction technique were employe d. Exam dose: 992.77 mGy-cm total exam DLP. COMPARISON: 12/[address] abdomen pelvis FINDINGS: Minimal atelectasis at the dependent left lower lobe. Included lower lung zones are otherwi se clear. Normal heart size. No pericardial or pleural effusion. Right and left hepatic space-occupying mass lesions are again noted, the right hepatic lesion measuri ng up to 2.6 cm, left hepatic lesion at least 5.3 cm., Most consistent with hepatic metastatic deposi ts from known history of colon cancer. Again noted is bile duct dilatation distal to the right hepati c lesion. Diffuse hepatic steatosis. Normal splenic size. There is pancreatic atrophy. No pancreatic mass lesion, calcification or ductal dilatation. The gallbladder is distended. No gallbladder wall thickening. Normal morphology of the adrenal glands. Left renal atrophy. Nonobstructive left nephrolithiasis. No apparent renal space-occupying mass lesio ns are noted. No hydroureteronephrosis. There is normal caliber of the abdominal aorta. No intraperitoneal or retroperitoneal or pelvic mass lesion or adenopathy or ascites. There is a suture line of the sigmoid colon. No bowel obstruction. Normal appendix. There is fluid wi thin multiple small bowel and colon segments which may represent enterocolitis. No intraperitoneal fr ee air. Moderate thickening of the urinary bladder wall may be due to under distention versus cystitis. Clini bryon correlation is advised. Uterus, adnexal areas and urinary bladder are otherwise unremarkable. Diffuse osteopenia. Multiple subacute lower left rib fractures including a least the ninth through 12th ribs. At least on e or 2 posterior subacute right rib fractures are suggested. Thoracolumbar pedicles and spinal rods. IMPRESSION: Hepatic metastatic lesions are again noted, relatively stable since 12/2020 Status post sigmoid colon resection for presumed colon cancer Cholelithiasis Subacute posterior lower rib fractures on the left and probably on the right as well Reviewed, dictated and finalized at [facility]. Reviewed, dictated and finalized at location A. IMPRESSION: Hepatic metastatic lesions are again noted, relatively stable sinc e 12/2020 Status post sigmoid colon resection for presumed colon cancer Cholelithiasis Subacute posterior lower rib fractures on the left and probably on the right as well
--- NOTE | 2021-02-25 02:24 | ECG_ITS ---
Measurements Intervals [place] Rate: 118 P: 76 ID: [id number] QRS: 77 QRSD: 76 T: 68 QT: 379 QTc: 532 Interpretive Statements SINUS TACHYCARDIA VENTRICULAR PREMATURE COMPLEX BASELINE WANDER- I, II ABNORMAL ECG Electronically Signed On 02-25-2021 7:23:46 CDT by Jules Workman D.O.
[2021-02-25 02:45] VITALS: BP 99/71; PULSE 120; RESP 20; TEMP 36.9; O2SAT 98
--- NOTE | 2021-02-25 02:55 | ED.GENADULT ---
HPI - General Adult General Chief complaint: Altered Mental Status Stated complaint: weakness, nausea Source: RN notes reviewed History of Present Illness HPI narrative: Patient presents to emergency department from home via EMS for weakness. Patient states that she fell approximately 3 days ago has been unable to get up since that time patient's neighbor heard her yelling today and EMS was called and found the patient on the floor covered in excrement patient states she did stop drinking approximately 4 days ago as well as she does have a history of seizures patient has not taken any of her medication for the past 3 days including seizure medication and her chronic pain medication and Ativan. Patient denies any fevers or chills states she does have a cough denies any pain Related Data Home Medications Medication Instructions Recorded Confirmed lorazepam 0.5 mg PO TID PRN 07/21/20 07/21/20 fluoxetine mg 02/25/21 levetiracetam PO 02/25/21 02/25/21 Allergies Allergy/AdvReac Type Severity Reaction Status Date / Time Sulfa (Sulfonamide Allergy Unknown Unknown Verified 12/28/20 20:59 Antibiotics) Review of Systems Review of Systems: Narrative: Gen.: Denies fevers or chills Eyes: Denies eye pain or visual change ENT: Denies congestion Respiratory: Denies shortness of breath or cough CV: Denies chest pain or palpitations GI: Denies abdominal pain nausea, emesis or diarrhea Musculoskeletal: Denies back pain or muscle pain Neuro: See HPI Skin: Denies rash Except as documented, all other systems reviewed and negative PMF Past Medical History Medical History (Updated 02/25/21 @ 04:49 by Adal Fraire DO) Anxiety Back pain with history of spinal surgery Miller rods placed due to scoliosis Colon cancer Depression Fracture of right ankle, lateral malleolus Nondisplaced comminuted fracture lateral malleolus 11/13/2019 Frequent falls GERD (gastroesophageal reflux disease) GI bleed With history of gastric and duodenal ulcer 09/2018 Hepatitis C Has a teenage History of colon cancer Status post sigmoid resection 05/05/2017 Hx of seizure disorder With normal EEG and MRI demonstrating arachnoid cyst in the left temporal lobe with chronic small-vessel ischemic changes in November 2016 IBS (irritable bowel syndrome) 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 Surgical History Surgical History History of bilateral carpal tunnel release History of bone graft from LLE to repair bilateral wrist fractures History of colon resection sigmoid due to colon cancer April 2017 History of cystoscopy with stents March 2017 Hx of section Port-A-Cath in place Scoliosis deformity of spine With surgical repair Wrist fracture, bilateral Requiring bone graft Family History Family History Mother Diabetes mellitus Hypertension COPD (chronic obstructive pulmonary disease) Father MVA (motor vehicle accident) Alcohol abuse Sibling Drug overdose Social History Social History Social History: Primary care physician: Dr. Carolyn Ibarra Code status: Full code per EMR Smoking packs per day: 1 Smoking cigarettes per day: 20.0 Years smoked: 47 Smoking pack-years: 47.00 Smoking status: Current every day smoker Tobacco type: cigarettes Second hand tobacco smoke exposure: Yes Alcohol intake: current Drinks per week: 5 Substance use: unknown Substance use type: does not use Additional living arrangements comments: Pt lives in an apartment complex. Additional occupation/education comments: The patient reports that she is disabled due to her seizures. Gender identity (if verbalized by the patient): Female Spiritual care concerns: No Agree to blood products: Yes
[2021-02-25 02:59] LABS: Alveolar/Arterial O2 Gradient 40.8 mmHg; Base Excess ABG -6.1 mEq/l (+/-2.0); Fractional Inspired Oxygen 21 %; HCO3 ABG 16.1 mEq/l (22.0-26.0); Oxygen Content ABG 18.3 %vol (16.0-22.0); Oxygen Saturation ABG 96.5 % (95.0-100.0); PCO2 ABG 24.1 mmHg (35.0-45.0); PO2 ABG 80.1 mmHg (80.0-100.0); PO2 FiO2 Ratio Arterial Blood 3.81 %; Total Hemoglobin 13.7 g/dL (12.0-18.0); pH ABG 7.443 (7.350-7.450)
[2021-02-25 03:00] LABS: Device ROOM AIR; Modified Allen's Test Pass; Site Drawn RIGHT RADIAL
[2021-02-25 03:12] LABS: Glucose Point of Care 133 (65-105)
[2021-02-25 03:21] LABS: Basophils Percent Auto 0.2 % (0.2-1.2); Eosinophils Percent Auto 0.1 % (0-4.4); Hematocrit 44.1 % (37.0-47.0); Hemoglobin 14.1 g/dL (12.0-15.0); Immature Granulocyte Absolute 0.12 K/mm3 (0.00-0.031); Lymphocytes Absolute Auto 1.45 K/mm3 (0.9-3.2); Lymphocytes Percent Auto 11.9 % (18.3-44.2); Mean Corpuscular Volume 100.2 fl (80-100); Monocytes Absolute Auto 0.4 K/mm3 (0.1-0.6); Monocytes Percent Auto 3.4 % (2.6-8.5); Neutrophils Absolute Auto 10.2 K/mm3 (1.3-6.7); Neutrophils Percent Auto 83.4 % (45.5-73.1); Nucleated Red Blood Cells Perc 0.2 % (0.0-0.2); Platelet Count Result 255 k/mm3 (150-375); Red Cell Distribution Width 15.9 % (11.5-14.5); White Blood Count 12.2 K/mm3 (4.5-10.0)
[2021-02-25] MEDS: SODIUM CHLORIDE 0.9% IV 1,000 ML 999 ML IV CONT ×2 (03:23→03:57)
[2021-02-25 03:31] LABS: Ethanol < 10 mg/dL (<10); Lactic Acid Reflex 3.6 mmol/L (0.7-2.1)
[2021-02-25 03:39] LABS: Alkaline Phosphatase 270 U/L (38-126); Anion Gap 13 mmol/L (8-16); Blood Urea Nitrogen 14 mg/dL (7-17); Calcium 9.7 mg/dL (8.4-10.2); Carbon Dioxide 18 mmol/L (22-30); Chloride 110 mmol/L (98-107); Creatine Kinase 225 U/L (30-135); Estimated Glomerular Filt Rate 56; Glucose 119 mg/dL (65-105); Magnesium 1.7 mg/dL (1.6-2.3); Potassium 3.1 mmol/L (3.4-5.0); Sodium 141 mmol/L (137-145)
[2021-02-25 03:44] VITALS: BP 124/80; PULSE 107; RESP 20; O2SAT 97
[2021-02-25 04:23] LABS: Alanine Aminotransferase 1754 U/L (4-35)
[2021-02-25 04:26] LABS: INR 1.4; Prothrombin Time 17.5 Seconds (11.1-14.7)
[2021-02-25 04:31] LABS: Add Urine Microscopic? YES; Appearance Urine Cloudy (Clear); Bacteria Urine Trace /hpf; Bilirubin Urine 1+ (Negative); Blood Urine Negative (Negative); Color Urine Amber (Yellow); Glucose Urine UA Negative (Negative); Ketones Urine Trace mg/dL (Negative); Leukocyte Esterase Ur Negative LEU/UL (Negative); Mucus Urine Moderate /lpf; Nitrate Urine Negative (Negative); Protein Urine 2+ mg/dL (Negative); RBC Urine 0-2 /hpf (0-2); Specific Grav Ur 1.029 (1.001-1.035); Squamous Epithelial Cell Urine Many /hpf (Few); WBC Urine 0-3 /hpf
[2021-02-25 04:36] LABS: Acetaminophen 62 ug/mL (10-30)
[2021-02-25 04:39] VITALS: BP 126/71; PULSE 115; RESP 20; O2SAT 100
[2021-02-25 04:44] LABS: Lipase 130 U/L (23-300)
[2021-02-25 04:47] LABS: Aspartate Amino Transferase 6608 U/L (14-36)
--- NOTE | 2021-02-25 04:58 | PC.NURSE ---
[facility] accepted transfer to [id number] Trip # [id number]
--- NOTE | 2021-02-25 04:59 | PC.NURSE ---
report to gabbie dowd
[2021-02-25 05:06] LABS: Ammonia 23 umol/L (9-30)
[2021-02-25] MEDS: THIAMINE HCL 200 MG/2 ML VIAL 100 MG IV PUSH (05:10)
[2021-02-25] MEDS: LORazepam INJ (*CRX) 2 MG/ML VIAL 0.5 MG IV PUSH (05:35)
[2021-02-25 06:19] LABS: Reflex Lactic Acid Yes or No Add Lactic
== END 2021-02-25 05:37 | disposition still patient (30) ==
PROVIDERS: Emergency Provider Emergency Medicine; PCP Family Medicine
DX: S12.101A Unspecified nondisplaced fracture of second cervical vertebra, initial encounter for closed fracture (principal); T39.1X1A Poisoning by 4-Aminophenol derivatives, accidental (unintentional), initial encounter; K72.90 Hepatic failure, unspecified without coma; E87.6 Hypokalemia; G93.41 Metabolic encephalopathy; G40.909 Epilepsy, unspecified, not intractable, without status epilepticus; K21.9 Gastro-esophageal reflux disease without esophagitis; K58.9 Irritable bowel syndrome, unspecified; F41.9 Anxiety disorder, unspecified; F32.9 Major depressive disorder, single episode, unspecified; T45.1X5A Adverse effect of antineoplastic and immunosuppressive drugs, initial encounter; G62.0 Drug-induced polyneuropathy; Z86.19 Personal history of other infectious and parasitic diseases; Z85.038 Personal history of other malignant neoplasm of large intestine; Z90.49 Acquired absence of other specified parts of digestive tract; F17.210 Nicotine dependence, cigarettes, uncomplicated; R00.0 Tachycardia, unspecified; I49.3 Ventricular premature depolarization; I67.2 Cerebral atherosclerosis; M47.812 Spondylosis without myelopathy or radiculopathy, cervical region; Z98.1 Arthrodesis status; K80.20 Calculus of gallbladder without cholecystitis without obstruction; W19.XXXA Unspecified fall, initial encounter
CPT/HCPCS: 36415; 36600; 70450; 71045; 72125; 74177; 80053; 80307; 81001; 82140; 82550; 82805; 82948; 83605; 83690; 83735; 85025; 85610; 85730; 87040; 87077; 93005; 96361; 96365; 96375; 99285; J0132; J2060; J3411; J3480; J7030; J7060; L0140; Q9967